=== PATIENT | female | born 2000 | race Caucasian/White ===

== ENCOUNTER 2024-11-30 09:40 | Outpatient (CLI) | payer BC, SELFPAY | END 2024-11-30 09:41 | disposition home or self-care (01) | LOC: US 09:41 | PROVIDERS: Visit Provider Physician Assistant | DX: Z34.91 Encounter for supervision of normal pregnancy, unspecified, first trimester (principal); O35.9XX0 Maternal care for (suspected) fetal abnormality and damage, unspecified, not applicable or unspecified; Z3A.08 8 weeks gestation of pregnancy | CPT/HCPCS: 76817 ==

== ENCOUNTER 2024-12-15 08:07 | Outpatient (CLI) | payer BC, SELFPAY ==
--- NOTE | 2024-12-15 08:15 | CRLHL7_ITS ---
For Patients: As a result of the Century Cures Act, medical imaging exams and procedure reports are released immediately into your electronic medical record. You may view this report before your referring provider. If you have questions, please contact your health care provider. INDICATION: Follow up on viability TECHNIQUE: Transvaginal scanning was performed to better evaluate the IUP and adnexa. COMPARISON: 11/30/2024 FINDINGS: There is a living IUP with gestational age of 7 weeks 3 days by today`s crown-rump length and EDC of 07/31/2025. The embryonic heart rate is measured at 157 beats per minute. The placenta is not yet formed. No subchorionic hemorrhage is evident. Neither ovary is visualized. No adnexal mass or free fluid is apparent. IMPRESSION: 1. Living IUP with gestational age of 7 weeks 3 days by today`s crown-rump length and EDC of 07/31/2025. 2. No complication evident. Dictated by Roger Reed MD @ 12/16/2024 4:41:20 AM (Electronically Signed)
== END 2024-12-15 08:08 | disposition home or self-care (01) ==
LOC: US 08:09
PROVIDERS: Visit Provider Midwife
DX: Z34.91 Encounter for supervision of normal pregnancy, unspecified, first trimester (principal); Z3A.01 Less than 8 weeks gestation of pregnancy
CPT/HCPCS: 76817; 83021; 86703; 86706; 86803; 86850; 86900; 86901; 87086; 87340; 87491; 87591

== ENCOUNTER 2024-12-15 08:57 | Outpatient (CLI) | payer BC, SELFPAY ==
[2024-12-15 15:23] LABS: Chlamydia DNA Amplified* NOT DETECTED (No Detected); GC DNA Amplified* NOT DETECTED (No Detected)
== END 2024-12-15 08:58 | disposition home or self-care (01) ==
PROVIDERS: Visit Provider Midwife
DX: Z34.91 Encounter for supervision of normal pregnancy, unspecified, first trimester (principal); Z3A.01 Less than 8 weeks gestation of pregnancy
CPT/HCPCS: 83020; 83021; 85660; 86592; 86703; 86704; 86706; 86762; 86787; 86803; 86850; 86900; 86901; 87086; 87340; 87491; 87591

== ENCOUNTER 2025-01-03 10:26 | Emergency (ER) | payer BC, SELFPAY ==
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
[2025-01-03 10:29] VITALS: BP 105/73; PULSE 95; RESP 16; TEMP 36.8; O2SAT 99; BMI 45.5
--- OUTSIDE RECORDS SUMMARY | 2025-01-03 10:29 | XMS_ITS | Encounter Summary ---
Author Organization [facility] Address [address] [place] [address] Care Team Providers Care Sql Tech Name Role Phone Jess Mcfadden MD Primary Care Provider [phone] Dior Curtis MD Primary Care Provider [phone] No Ref-Primary, Physician Primary [facility] Provider [facility] jeremy Shana Kam APRN GENERATOR REBUILDER Unavailable [phone] Dior Curtis MD Primary Care Provider [phone] Gillian Hansen RN Unavailable Unavailable Dior Curtis MD Unavailable [phone] No Ref-Primary, Physician Unavailable [phone] No Ref-Primary, Physician Primary Care Provider Reason for Visit * Reason Onset Date Comments MH/CD Inpatient 10/28/2014 pt is unable to contract for safety Encounter Details Date Type Department Care Team (Late st Contact Info) Description 10/28/2014 Telephone [facility] Intake [address] [place] [address] Generic, Behavioral Intake, MH/CD Inpatient (pt is unable to contract for safety) Social History Tobacco Use Types Packs/Day Years Used Date Smoking Tobacco: Never Assessed Alcohol Use Standard Drinks/Week Comments No 0 (1 standard drink = 0.6 oz pur e alcohol) Comments No Sex and Gender Information Value Date Recorded Sex Assigned at Not on file Legal Sex Female 4:40 AM SNORKELLING INSTRUCTOR Gender Identity Not on file Sexual Orientation Not on file documented as of this encounter Miscellaneous Notes * Telephone Encounter - Yandy Torres - 10/28/2014 12:07 AM CST S: Pt is on subacute unit and is unable to contract for safety. B: The pt has urges to cut and is unable to contract for safety. A: Pt is at risk for self harm. R: Admit to station 7ae under the care of Dr Valdez. (Yandy Melissa) KELLING INSTRUCTOR documented in this encounter Plan of Treatment Not on file documented as of this encounter Visit Diagnoses Not on filedocumented in this encounter Care Teams Sql Tech Relationship Specialty Start Date End Date Jess Mcfadden MD [facility] [address] [place] [address] PCP - General 03/25/12 12/28/14 Dior Curtis MD [address] [facility] [address] [place] [address] PCP - General Family Practice 12/29/14 08/27/17 No Ref-Primary, Physician PCP - General 08/28/17 08/30/17 Physicians, [facility] [address] [address] PCP - General 08/31/17 09/07/17 Shana Kam APRN GENERATOR REBUILDER [address] [phone] PCP - Mental Health/Behavioral Medicine Nurse Practitioner 09/01/17 Dior Curtis MD [address] , [address] [address] PCP - General Family Practice 09/08/17 12/19/20 No Ref-Primary, Physician PCP - General 12/24/21 Gillian Hansen, RN [address] [address] Lead Mold Clamper Primary Care - CC 12/03/17 05/28/18 Dior Curtis MD [address] , [address] [id number] Assigned PCP 12/01/14 09/06/22 No Ref-Primary, Physician 12/24/21 documented as of this encounter
--- OUTSIDE RECORDS SUMMARY | 2025-01-03 10:29 | XMS_ITS | Encounter Summary ---
Author Organization [facility] Address [address] [place] [address] Care Team Providers Care Diesel Engine Inspector Name Role Phone Jess Mcfadden MD Primary Care Provider Dior Curtis MD Primary Care Provider [phone] No Ref-Primary, Physician Primary Care Provider [facility] jeremy Shana Kam APRN AUTOMOTIVE MECHANIC Unavailable [phone] Dior Curtis MD Primary Care Provider [phone] Gillian Hansen RN Unavailable Unavailable Dior Curtis MD Unavailable No Ref-Primary, Physician Unavailable [phone] No Ref-Primary, Physician Primary Care Provider Reason for Visit * Reason Onset Date Comments Outpatient 11/01/2014 [facility] Encounter Details Date Type Department Care Team (Late st Contact Info) Description 11/01/2014 Telephone [facility] Behavioral Health Intake [address] [place] [address] Generic, Behavioral IntakeMD Outpatient (php) Social History Tobacco Use Types Packs/Day Years Used Date Smoking Tobacco: Never Assessed Alcohol Use Standard Drinks/Week Comments No 0 (1 standard drink = 0.6 oz pur e alcohol) Comments No Sex and Gender Information Value Date Recorded Sex Assigned at Not on file Legal Sex Female 4:40 AM RN CASE MANAGER Gender Identity Not on file Sexual Orientation Not on file documented as of this encounter Miscellaneous Notes * Telephone Encounter - León Stilese - 11/02/2014 9:38 AM CST Dup order written for php. CASE MANAGER * Telephone Encounter - Elsa Perales - 11/01/2014 11:01 AM CST recvd order from dr arshad/[facility] for referral to adol php; completed. CASE MANAGER documented in this encounter Plan of Treatment Not on file documented as of this encounter Visit Diagnoses Not on filedocumented in this encounter Care Teams Diesel Engine Inspector Relationship Specialty Start Date End Date Jess Mcfadden MD [facility] [address] [place] [address] PCP - General 03/25/12 12/28/14 Dior Curtis MD [address], [facility] [address] [place] [address] PCP - General Family Practice 12/29/14 08/27/17 No Ref-Primary, Physician PCP - General 08/28/17 08/30/17 Physicians, [facility] [address] [address] PCP - General 08/31/17 09/07/17 Shana Kam APRN AUTOMOTIVE MECHANIC [address] [facility] [address] [place] [phone] PCP - Mental Health/Behavioral Medicine Nurse Practitioner 09/01/17 Dior Curtis MD [address], [address] [address] PCP - General Family Practice 09/08/17 12/19/20 No Ref-Primary, Physician PCP - General 12/24/21 Gillian Hansen, RN [address] [address] Lead Inspector Balance Wheel Motion Primary Care - CC 12/03/17 05/28/18 Dior Curtis MD [address], [address] [address] Assigned PCP 12/01/14 09/06/22 No Ref-Primary, Physician 12/24/21 documented as of this encounter
--- OUTSIDE RECORDS SUMMARY | 2025-01-03 10:29 | XMS_ITS | Encounter Summary ---
Author Organization [facility] Address [address] [place] [address] Care Team Providers Care Utility Bag Assembler Name Role Phone Shana Kam APRN WEAPONS OFFICER Unavailable [phone] Dior Curtis MD Unavailable [phone] No Ref-Primary, Physician Unavailable [phone] No Ref-Primary, Physician Primary Care Provider Encounter Details Date Type Department Care Team (Late st Contact Info) Description 12/25/2021 Documentation Only INTERFACED REPORT Unknown, Provider Social History Tobacco Use Types Packs/Day Years [...] things needed for daily living? No 06/23/2019 Comments No Sex and Gender Information Value Date Recorded Sex Assigned at Not on file Legal Sex Female 4:40 AM NARCOTICS AGENT Gender Identity Not on file Sexual Orientation Not on file COVID-19 Exposure Response Date Recorded In the last month, have you been in contact with someone who was confirmed or suspected to have Coronavirus / COVID-19? No / Unsure 12/24/2021 2:48 PM CDT documented as of this encounter Plan of Treatment Not on file documented as of this encounter Visit Diagnoses Not on filedocumented in this encounter Additional Health Concerns Assessment Noted Time PHQ-9 Depression Total Score: 14 020 2:10 PM NARCOTICS AGENT documented as of this encounter Care Teams Utility Bag Assembler Relationship Specialty Start Date End Date Shana Kam APRN WEAPONS OFFICER PCP - Mental Health/Behavioral Medicine Nurse Practitioner 09/01/17 No Ref-Primary, Physician PCP - General 12/24/21 Dior Curtis MD [address] [address] Assigned PCP 12/01/14 09/06/22 No Ref-Primary, Physician 12/24/21 documented as of this encounter
--- OUTSIDE RECORDS SUMMARY | 2025-01-03 10:29 | XMS_ITS | Encounter Summary ---
Author Organization [facility] Address [address] [place] [address] Care Team Providers Care Pararescue Craftsman Name Role Phone No Ref-Primary, Physician Primary Care Provider Physicians, [facility] Primary Care [facility]remy Shana Kam APRN HEALTH CARE MARKETING MANAGER Unavailable [phone] Dior Curtis MD Primary Care Provider Gillian Hansen RN Unavailable Unavailable Dior Curtis MD Unavailable [phone] No Ref-Primary, Physician Unavailable [phone] No Ref-Primary, Physician Primary Care Provider Reason for Visit * Reason Onset Date Comments MH/CD Inpatient 08/28/2017 Encounter Details Date Type Department Care Team (Late st Contact Info) Description 08/28/2017 Telephone [facility] Behavioral Health Intake [address] [place] [phone] Generic, Behavioral Intake, MH/CD Inpatient Social History Tobacco Use Types Packs/Day Years Used Date Smoking Tobacco: Never Alcohol Use Standard Drinks/Week Comments No 0 (1 standard drink = 0.6 oz pur e alcohol) Comments No Sex and Gender Information Value Date Recorded Sex Assigned at Not on file Legal Sex Female 4:40 AM HEALTH INFORMATICS SPECIALIST Gender Identity Not on file Sexual Orientation Not on file documented as of this encounter Miscellaneous Notes * Telephone Encounter - Muna Matt Maldonado - 08/28/2017 7:47 PM CST S: pt is a 17 yr old fem in [facility] ED for SI w/ plan to OD or fall out a window report by B: Pt reports she wrote good-bye letters to her family. Pt reports she called 911. Pt reported she has had increasing SI since they increased her [place]. Pt has a psychiatrist and a therapist. No cd issues or medical concerns reported. A: vol / parents will sign in R; field operator reports pt will now contract for safety and family feels comfortable taking her home. TH INFORMATICS SPECIALIST documented in this encounter Plan of Treatment Not on file documented as of this encounter Visit Diagnoses Not on filedocumented in this encounter Additional Health Concerns Assessment Noted Time PHQ-9 Depression Total Score: 5 05/09/20 16 7:16 AM CDT documented as of this encounter Care Teams Pararescue Craftsman Relationship Specialty Start Date End Date No Ref-Primary, Physician PCP - General 08/28/17 08/30/17 Physicians, [place] [address] [address] [facility] [address] [place] [phone] PCP - General 08/31/17 09/07/17 Shana Kam APRN [facility] [address] [facility] [address] [place] [phone] PCP - Mental Health/Behavioral Medicine Nurse Practitioner 09/01/17 Dior Curtis MD [address], [facility] [address] [place], [place] [phone] PCP - General Family Practice 09/08/17 12/19/20 No Ref-Primary, Physician PCP - General 12/24/21 Gillian Hansen RN [address], [facility] [address] [place] [address] Lead Residential Care Facility Manager Primary Care - CC 12/03/1705/28 Dior Curtis MD [address] [facility] [address] [place] [address] Assigned PCP 12/01/14 09/06/22 No Ref-Primary, Physician 12/24/21 documented as of this encounter
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
--- OUTSIDE RECORDS SUMMARY | 2025-01-03 10:29 | XMS_ITS | Clinical Summary ---
Author Organization [facility] Address [address] [place] [address] Care Team Providers Care House Moving Supervisor Name Role Phone Unavailable Primary Care Provider Unavailabl e Allergies No known active allergies Medications dextroamphetamine- amphetamine (Adderall XR) 10 mg Extended-Release capsuleIndications :Attention deficit hyperactivity disorder (ADHD), predominantly hyperactive type Take 1 Capsule (10 mg) by mouth once daily. 30 Capsule 5 Active Active Problems Problem Noted Date Diagnosed Date Cervical cancer screening 08/03/2024 Overview (08/03/2024): 07/2024 NIL. Plan: Pap/HPV due 07/2027. Mixed hearing loss 12/16/2012 ETD (eustachian tube dysfunction) 12/16/2012 Attention deficit disorder with hyperactivity(31 4.01) 05/11/2008 Overview (05/11/2008): Followed by Zach Wood MD, developmental technical professional Other specified pervasive de velopmental disorders, current or active state 04/15/2006 Overview (04/15/2006): Asperger's dx 11/26 Unspecified hearing loss 04/15/2006 Overview (04/15/2006): hearing aids Immunizations Immunization Administration Dates Next Due COVID-19 vaccine (Moderna 100mcg/0.5mL) HERMANN CHAO 02/20/2021,01/23/2021 DTaP 05/21/2012, 6,10/16/2001,02/20,2000,2000,2000 TIjW-GawU-GAS (Pediarix) 10/16/2001,2000,1 11/20/1999 HPV 2(Cervarix) 04/19/2013,06/26/2012 HPV 9 (Gardasil 9) 10/03/2014,04/19/2013, 012 Hepatitis A (Peds) 04/19/2013,06/26/2012 Hepatitis A, Unspecified 04/19/2013,06/26/2012 Hepatitis B (Peds) 10/16/2001, 1,2000,07/16 Hepatitis B, Unspecified 10/16/2001,2000,1 11/20/1999 Human Papilloma Virus Vaccine 10/03/2014 Inactivated Polio Vaccine 04/15/2006,,05/15/2001,12/01,2000,2000,2000 Influenza Virus, Unspecified 10/03/2014, 05/21/2012,07/13/2010,06/06 Influenza, IIV3 (Age >=3 years) 09/03/2006,07/23 Influenza,LAIV3 Live Intrana cira (Flumist) 05/21/2012,07/13/2010,06/06/2009 Influenza,LAIV4 Live Intrana cira (Flumist) 10/03/2014,06/28/2013 MENINGOCOCCAL VACCINE 2 VIAL 2MO-55YO (MENVEO) 05/31/2019,05/21/2012 MMR 04/15/2006,09/06/2002,2000 Meningococcal Vaccine (Menomune) 05/21/2012 Pneumococcal conj 7-Valent (Prevnar 7) 0 10/16/2001,02/20/2001,2000,10/17 Tdap 07/26/2024 Tdap, Unspecified 05/21/2012 Varicella Vaccine 06/06/2009,09/06/2002 Family History Medical History Relation Name Comments No Known Problems Father Asthma Mother Amalia Other Mother Amalia cindy deafness Heart Disease Paternal Uncle heart attack Relation Name Status Comments Father Mother Amalia Paternal Uncle Social History Tobacco Use Types Packs/Day Years Used Date Smoking Tobacco: Never Passive Smoke Exposure: Past Smokeless Tobacco: Never Tobacco Cessation:Counseling Given: Not Answered Alcohol Use Standard Drinks/Week Comments Yes 0 (1 standard drink = 0.6 oz pur e alcohol) PHQ-2 Answer Date Recorded PHQ-2 TOTAL SCORE 0 07/26/2024 Comments No Sex and Gender Information Value Date Recorded Sex Assigned at Not on file Legal Sex Female 5:42 AM ACID ADJUSTER Gender Identity Not on file Sexual Orientation Not on file Obstetrics History Last Filed Vital Signs Vital Sign Reading Time Taken Comments Blood Pressure 108/82 07/26/2024 3:00 PM ACID ADJUSTER Pulse 70 07/26/2024 3:00 PM ACID ADJUSTER Temperature 36.6 C (97.9 F) 12/24/2012 10:00 AM CDT Respiratory Rate 16 07/26/2024 3:00 PM ACID ADJUSTER Oxygen Saturation 97% 07/26/2024 3:00 PM ACID ADJUSTER Inhaled Oxygen Concentration - - Weight 125.7 kg (277 lb 3.2 oz) 07/26/2024 3:00 PM ACID ADJUSTER Height 163 cm (5' 4.17) 07/26/2024 3:00 PM ACID ADJUSTER Body Mass Index 47.33 07/26/2024 3:00 PM ACID ADJUSTER Plan of Treatment Health Maintenance Due Date Last Done Comments COVID-19 vaccine series ( season) 2024 02/20/2021, 01/23/2021 Influenza Vaccine (Season Ended) 2025 10/03/2014, 10/03/2014, 06/28/2013, Additional history exists BMI (ht and wt on same day) for age 18+ 07/26/2025 07/26/2024 Chlamydia for age 16-24 07/26/2025 07/26/2024 Depression screening for age 12+ 07/29/2025 07/29/2024, 07/26/2024, 03/01/2021, Additional history exists Pap test for age 21-65 07/26/2027 07/26/2024 Tetanus booster 07/26/2034 07/26/2024, 05/21/2012 Pneumococcal series for age 6-49 Aged Out 10/16/2001, 02/20/2001, 2000, Additional history exists No longer eligible based on patient's age to complete this topic HPV series for age 9-26 Completed 10/03/19, 10/03/2014, 04/19/2013, Additional history exists HIV for age 15-65 Completed 07/26/2024 Hepatitis C screening for age 18-79 Completed 07/26/2024 Tdap Completed 07/26/2024, 05/21/2012 Medical Devices Implanted Type Area Cpc Coder Device Identifier Shelf Expiration Date Model / Serial / Lot Tube Vent 1.27mm Inner Collar Button [id number] - [id number] Implanted:Qty: 2 on 12/24/2012 by Rasheed Arguello MD at [facility] Bilateral : Ear [employer] 09/22/2022 [id number] / / [id number] Procedures Procedure Name Priority Date/Time Associated Diagnosis Comments CARGO HANDLER THIN PREP PAP - AGES 21-24 ([facility]) Routine 07/26/2024 4:15 PM ACID ADJUSTER Screening for cervical cancer GC CHLAMYDIA TRACH PROBE Routine 07/26/2024 3:44 PM ACID ADJUSTER Screening for chlamydial disease HIV 1/2 ANTIGEN/ANTIBODY FOURTH GENERATION W/RFL ([facility]) Routine 07/26/2024 3:38 PM ACID ADJUSTER Screening for HIV (human immunodeficiency virus) ANTI HCV Routine 07/26/2024 3:38 PM ACID ADJUSTER Need for hepatitis C screening test from Last 3 Months or Most Recently Relevant to Health Maintenance Results * CARGO HANDLER THIN PREP PAP - AGES 21-24 ([employer]) [[id number]] (07/26/2024 4:15 PM ACID ADJUSTER) CLINICAL INFORMATION [facility] Comment:None given LMP [facility] Comment:07/08/24 PREV. PAP [facility] Comment:FIRST, UNKNOWN PREV. BX [facility] Comment:NA SOURCE CARGO HANDLER [facility] Comment:Cervix STATEMENT OF ADEQUACY [facility] Comment: Satisfactory for evaluation. Endocervical/transformation zone component absent. INTERPRETATION/RESUL T [facility] Comment: Cytology Results: Negative for intraepithelial lesion or malignancy. COMMENT [facility] Comment: This Pap test has been evaluated with computer assisted technology. TIMBER FELLER Marco Antonio [facility] Comment: RRD, CT(ASCP) CT Screening location: [address] [address] THINPREP TIS PAP ALWAYS MESSAGE [facility] Comment: EXPLANATORY NOTE: The Pap is a screening test for cervical cancer. It is not a diagnostic test and is subject to false negative and false positive results. It is most reliable when a satisfactory sample, regularly obtained, is submitted with relevant clinical findings and history, and when the Pap result is evaluated along with historic and current clinical information. Other (Cervical) 07/26/2024 4:15 PM ACID ADJUSTER 07/27/2024 3:37 AM ACID ADJUSTER Narrative [facility] - 07/30/2024 9:28 PM ACID ADJUSTER SPLIT 07/26/2024 FROM [id number] Carmina MOONEY PATHOLOGY/CYTOLOGY Fin al Result [address] [id number], [address] [address] * GC CHLAMYDIA TRACH PROBE [[id number]] (07/26/2024 3:44 PM ACID ADJUSTER) CHLAMYDIA PROBE Negative 1:23 PM ACID ADJUSTER [facility] N GONORRHOEAE PROBE Negative 07/27/2024 1:23 PM ACID ADJUSTER [facility] Other VAGINAL SWAB / Unknown Non-Blood / Unknown 07/26/2024 3:44 PM ACID ADJUSTER 07/26/2024 3:44 PM ACID ADJUSTER us Carmina MOONEY MICROBIOLOGY Final Result [facility] [address] [place] [address], [place] * HIV 1/2 ANTIGEN/ANTIBODY FOURTH GENERATION W/RFL ([facility]) (07/26/2024 3:38 PM ACID ADJUSTER) HIV AG/AB, 4TH GEN NON-REACT JULI NON-REACT JULI [facility] Comment: HIV-1 antigen and HIV-1/HIV-2 antibodies were not detected. There is no laboratory evidence of HIV infection. PLEASE NOTE: This information has been disclosed to you from records whose confidentiality may be protected by state law. If your state requires such protection, then the state law prohibits you from making any further disclosure of the information without the specific written consent of the person to whom it pertains, or as otherwise permitted by law. A general authorization for the release of medical or other information is NOT sufficient for this purpose. For additional information please refer to http://advisorCONNECT.Correlsense/faq/GGG195 (This link is being provided for informational/ educational purposes only.) The performance of this assay has not been clinically validated in patients less than 2 years old. Blood BLOOD SPECIMEN / Unknown 07/26/2024 3:38 PM ACID ADJUSTER 07/26/2024 3:38 PM ACID ADJUSTER Narrative [facility] - 07/27/2024 5:30 AM ACID ADJUSTER FASTING:NO MULTIPLE TESTING PRIORITIES; ROUTINE TESTING TO FOLLOW. FASTING: NO Carmina MOONEY SEND OUTS Final Result [facility] [address] [place] [address], [facility] [address] [place] [address] * ANTI HCV (07/26/2024 3:38 PM ACID ADJUSTER) HEPATITIS C ANTIBODY NON-REACTI VE NON-REACT JULI [facility] Comment: HCV antibody was non-reactive. There is no laboratory evidence of HCV infection. In most cases, no further action is required. However, if recent HCV exposure is suspected, a test for HCV RNA (test code 88953) is suggested. For additional information please refer to http://education.link bird.Innovacell/faq/AJA17n7 (This link is being provided for informational/ educational purposes only.) Blood BLOOD SPECIMEN / Unknown 07/26/2024 3:38 PM ACID ADJUSTER 07/26/2024 3:38 PM ACID ADJUSTER Narrative [facility] - 07/27/2024 5:30 AM ACID ADJUSTER FASTING:NO MULTIPLE TESTING PRIORITIES; ROUTINE TESTING TO FOLLOW. FASTING: NO Carmina MOONEY SEND OUTS Final Result [facility] [address] [place] [address], [facility] [address] [place] [address] from Last 3 Months or Most Recently Relevant to Health Maintenance Insurance [facility] Advance Directives * Full Code (Latest Code Status on File) Date Activated Date Inactivated Comments 12/24/2012 9:56 AM 12/24/2012 1:38 PM
--- OUTSIDE RECORDS SUMMARY | 2025-01-03 10:29 | XMS_ITS | Encounter Summary ---
Author Organization [facility] Address [address] [place] [address] Care Team Providers Care [employer] Field Supervisor Name Role Phone Shana Kam APRN MANAGER BENEFIT Unavailable [phone] No Ref-Primary, Physician Unavailable [phone] No Ref-Primary, Physician Primary Care Provider Encounter Details Date Type Department Care Team (Latest Contact Info) Description 12/23/2024 Travel Social History Tobacco Use Types Packs/Day Years [...] on file Legal Sex Female 4:40 AM JAR FILLER Gender Identity Not on file Sexual Orientation Not on file documented as of this encounter Plan of Treatment Not on file documented as of this encounter Visit Diagnoses Not on filedocumented in this encounter Additional Health Concerns Assessment Noted Time PHQ-9 Depression Total Score: 14 020 2:10 PM JAR FILLER documented as of this encounter Care Teams Oil Well [employer] Field Supervisor Relationship Specialty Start Date End Date Shana Kam APRN MANAGER BENEFIT PCP - Mental Health/Behavioral Medicine Nurse Practitioner 09/01/17 No Ref-Primary, Physician PCP - General 12/24/21 No Ref-Primary, Physician 12/24/21 documented as of this encounter
--- OUTSIDE RECORDS SUMMARY | 2025-01-03 10:29 | XMS_ITS | Encounter Summary ---
Author Organization [place] Address [address] [place] [address] Care Team Providers Care Office Machine Embossograph Operator Name Role Phone Physicians, [facility] Primary Care Provi jeremy Shana Kam APRN PAIRER SUBSTANDARD Unavailable Dior Curtis MD Primary Care Provider [phone] Gillian Hansen RN Unavailable Unavailable Dior Curtis MD Unavailable No Ref-Primary, Physician Unavailable [phone] No Ref-Primary, Physician Primary Care Provider Encounter Details Date Type Department Care Team (Late st Contact Info) Description 09/01/2017 Telephone [facility] Behavioral Health Intake [address] [place] [phone] Generic, Behavioral Intake, Social History Tobacco Use Types Packs/Day Years Used Date Smoking Tobacco: Never Smokeless Tobacco: Never Alcohol Use Standard Drinks/Week Comments No 0 (1 standard drink = 0.6 oz pur e alcohol) Comments No Sex and Gender Information Value Date Recorded Sex Assigned at Not on file Legal Sex Female 4:40 AM PRESSROOM SUPERVISOR Gender Identity Not on file Sexual Orientation Not on file documented as of this encounter Miscellaneous Notes * Telephone Encounter - Azael Stiles - 09/09/2017 10:15 AM CST ----- Message from Gillian Perera sent at 09/09/2017 8:07 AM PRESSROOM SUPERVISOR ----- Regarding: appt needed We need a [facility] appt for 09/08 pls - pt was on 7A - [facility]#[id number]. Please add billing indicator 89. Thank you - k SROOM SUPERVISOR * Telephone Encounter - Thi Glalagher - 09/01/2017 12:32 AM PRESSROOM SUPERVISOR S: Pt is a 17 yo female at [facility] for SI. Report given by Mana. B: Pt has a hx of depression and cutting. Hot Metal Charger reports pt got upset with father and engaged in SIB via cutting. Pt endorsed SI with a plan to cut herself to . Hot Metal Charger reports pt's cuts are superficial. Pt told damage assessor that if she is discharged she will go home and kill herself. Pt has a hxof SI and hx of a suicide attempt 1 year ago. Pt is medically cleared. No violence or aggression reported. Hot Metal Charger reports pt's medications have recently been switched, pt switched from Seroquel to Latuda. Pt states she tried marijuana tonight, utox is negative. OP providers include MH comp field case manager, psychiatrist, and a school therapist. Affect is depressed, pt is calm and cooperative. A: Pt's father, Zach Starkey, authorizing tx. Can be reached at R: Vega accepted. María/ Sami SROOM SUPERVISOR documented in this encounter Plan of Treatment Not on file documented as of this encounter Visit Diagnoses Not on filedocumented in this encounter Additional Health Concerns Assessment Noted Time PHQ-9 Depression Total Score: 5 05/09/20 16 7:16 AM CDT documented as of this encounter Care Teams Office Machine Embossograph Operator Relationship Specialty Start Date End Date Physicians, [facility] [address] [place] [address] PCP - General 08/31/17 09/07/17 Shana Kam, MINE WEDGE SAWYER PAIRER SUBSTANDARD [address] [place] [phone] PCP - Mental Health/Behavioral Medicine Nurse Practitioner 09/01/17 Dior Curtis MD [address], [address] [address] PCP - General Family Practice 09/08/17 12/19/20 No Ref-Primary, Physician PCP - General 12/24/21 Gillian Hansen RN [address], [address] [address] Lead Application Spec Primary Care - CC 12/03/1705/28 Dior Curtis MD [address], [address] [address] Assigned PCP 12/01/14 09/06/22 No Ref-Primary, Physician 12/24/21 documented as of this encounter
--- OUTSIDE RECORDS SUMMARY | 2025-01-03 10:29 | XMS_ITS | Encounter Summary ---
Author Organization [place] Address [address] [place] [address] Care Team Providers Care Jute Bag Cutting Machine Operator Name Role Phone Shana Kam APRN PROTECTION ENGINEER Unavailable [phone] Dior Curtis MD Primary Care Provider [phone] Dior Curtis MD Unavailable [phone] No Ref-Primary, Physician Unavailable [phone] No Ref-Primary, Physician Primary Care Provider Encounter Details Date Type Department Care Team (Late st Contact Info) Description 05/25/2019 Documentation Only [facility] Ortho [facility] [address] [place] [phone] Rosaline Archer Social History Tobacco Use Types Packs/Day Years Used Date Smoking Tobacco: Never Smokeless Tobacco: Never Alcohol Use Standard Drinks/Week Comments No 0 (1 standard drink = 0.6 oz pur e alcohol) Comments No Sex and Gender Information Value Date Recorded Sex Assigned at Not on file Legal Sex Female 4:40 AM VALET ATTENDANT Gender Identity Not on file Sexual Orientation Not on file documented as of this encounter Plan of Treatment Not on file documented as of this encounter Visit Diagnoses Not on filedocumented in this encounter Additional Health Concerns Assessment Noted Time PHQ-9 Depression Total Score: 4 08/04/20 18 4:22 PM VALET ATTENDANT documented as of this encounter Care Teams Jute Bag Cutting Machine Operator Relationship Specialty Start Date End Date Shana KamULICES PROTECTION ENGINEER PCP - Mental Health/Behavioral Medicine Nurse Practitioner 09/01/17 Dior Curtis MD [address] , [address] [address] PCP - General Family Practice 09/08/17 12/19/20 No Ref-Primary, Physician PCP - General 12/24/21 Dior Curtis MD [address] , [address] [id number] Assigned PCP 12/01/14 09/06/22 No Ref-Primary, Physician 12/24/21 documented as of this encounter
--- OUTSIDE RECORDS SUMMARY | 2025-01-03 10:29 | XMS_ITS | Encounter Summary ---
Author Organization [place] Address [address] [place] [address] Care Team Providers Care Certified Surgical Tech/First Assistant Name Role Phone Shana Kam APRN PROGRAM REP Unavailable [phone] No Ref-Primary, Physician Unavailable [phone] No Ref-Primary, Physician Primary Care Provider Reason for Visit * Reason Comments Emesis During Encounter Details Date Type Department Care Team (Late st Contact Info) Description 12/23/2024 9:58 AM CDT - 12/23/2024 12:47 PM CDT Emergency [facility] Emergency Dept [address] [place] [address] Loli Whitfield MD [facility] [address] [place], [place] [phone] Hyperemesis arising during Discharge Disposition: Home or Self Care Social History Tobacco Use Types Packs/Day Years [...] on file Legal Sex Female 4:40 AM LEAD MANUFACTURING ENGINEER Gender Identity Not on file Sexual Orientation Not on file documented as of this encounter Last Filed Vital Signs Vital Sign Reading [...] Mass Index 46.55 12/23/2024 9:26 AM CDT documented in this encounter Discharge Instructions * Discharge Instructions* Loli Whitfield MD - 12/23/2024 10:13 AM CDT Discharge Instructions Hyperemesis Gravidarum You were seen today for hyperemesis gravidarum. It is very common to have some nausea (sick to yourstomach) and vomiting (throwing up) in early (sometimes called ???morning sickness,?? although it happens at all times of day.) In hyperemesis gravidarum, however, the vomiting is much more severe, so you may become dehydrated and lose weight. We have treated you today to manage your symptoms and rehydrate you. Often these symptoms persist during the first trimester of beforeimproving so you will likely need ongoing care. Generally, every Emergency Department visit should have a follow-up clinic visit with either a primary or a specialty clinic/provider. Please follow-up as instructed by your emergency provider today. Return to the Emergency Department if: You feel dizzy or light headed when standing up. You are vomiting and cannot keep fluids or medications down. You urinate (pee) much less than normal. You feel much more ill or develop new symptoms. What can I do to help myself? Be sure to drink plenty of cold clear fluids and suck on popsicles between meals. Pedialyte is a good rehydration liquid but many people don???t like the taste so sport drinks are a good alternative (Gatorade). Soda is often excessively sweat but Balwinder Doris is sometimes recommended for this condition. Eat as soon as you feel hungry, or even before you feel hungry. Try to keep something on your stomach. Avoid strong smells, or other things that make you feel nauseated. Snack often and eat small meals high in protein or carbohydrates such as crackers, bread, nuts, andlow-fat yogurt. Avoid spicy, greasy, or acid foods. Avoid lying down right after you eat. Take your vitamins at bedtime with a snack instead of taking them in the morning. Balwinder may make you feel better. Try eating a small piece of balwinder, or having balwinder-flavored hardcandies. Acupressure wrist bands are also helpful to some people. Treatment: Nausea medication. Your provider may send you home with a prescription medicine, like Compazine?? (prochlorperazine) or Reglan?? (metoclopramide). Zofran?? (ondansetron) is sometimes used as well. Your provider may recommend that you take non-prescription nausea medicines, like Dramamine?? (dimenhydrinate), Unisom?? (doxylamine), or Vitamin B6 (pyridoxine). Vitamins. Make sure your vitamins have 400 micrograms of Folic acid and have vitamin B6, since this may help your nausea and vomiting. If you were given a prescription for medicine here today, be sure to read all of the information (including the package insert) that comes with your prescription. This will include important information about the medicine, its side effects, and any warnings that you need to know about. The pharmacist who fills the prescription can provide more information and answer questions you may have about the medicine. If you have questions or concerns that the pharmacist cannot address, please call or return to the Emergency Department. Remember that you can always come back to the Emergency Department if you are not able to see your regular provider in the amount of time listed above, if you get any new symptoms, or if there is anything that worries you. documented in this encounter Medications at Time of Discharge prochlorperazine (COMPAZINE) [address] 1 suppository (25 mg) rectally every 12 hours as needed for nausea. 6 suppository 12/23/2024 documented as of this encounter ED Notes * Violet Turner RN - 12/23/2024 12:34 PM CDT Pt passed Po challenge * Loli Whitfield MD - 12/23/2024 10:10 AM CDT History Chief Complaint: Emesis During HPI Sury Starkey is a 24 year old female, 9w0d , who presents with emesis during . Patient reports emesis for the past 36 hours and difficulty keeping fluids down. She also reports somedizziness. She is making urine. No vaginal bleeding or abdominal pain. She has been taking unisom and Zofran for nausea, but has not been able to keep it down. She has had an ultrasound for this that showed IUP. No dysuria. Review of External notes Medications: Zofran Adderall Past Medical History: ADHD Bipolar disorder Depressive disorder Sleep disorder Class 3 severe obesity Dysmenorrhea Hearing loss Irregular menstrual cycle Marijuana smoker, continuous Vitamin D deficiency Hyperlipemia Past Surgical History: Tonsillectomy and adenoidectomy Tympanostomy Myringotomy Physical Exam Patient Vitals for the past 24 hrs: BP Temp Temp src Pulse Resp SpO2 Height Weight 12/23/24 0926 125/71 98 ??F (36.7 ??C) Temporal 67 18 99 % 1.626 m (5' 4) 123 kg (271 lb 2.7 oz) Physical Exam Gen: alert CV: RRR, Pulm: breath sounds equal, lungs clear. Mild tachycardia. Abd: Soft, nontender Back: no evidence of injury, no cva tenderness MSK: no deformity, moves all extremities Skin: no rash Neuro: alert, appropriate conversation and interaction Emergency Department Course Laboratory: Labs Ordered and Resulted from Time of ED Arrival to Time of ED Departure BASIC METABOLIC PANEL - Abnormal Result Value Sodium 134 (*) Potassium 4.0 Chloride 102 Carbon Dioxide (CO2) 24 Anion Gap 8 Urea Nitrogen 10.4 Creatinine 0.57 GFR Estimate >90 Calcium 8.9 Glucose 89 ED Course as of 12/23/24 1156 Nhung Dec 23, 2024 1009 I obtained history and examined the patient as noted above. Interventions: Medications dextrose 5% and 0.9% NaCl infusion ( Intravenous $New Bag 12/23/24 1058) sodium chloride 0.9% BOLUS 1,000 mL (has no administration in time range) ondansetron (ZOFRAN) injection 4 mg (4 mg Intravenous $Given 12/23/24 1058) Impression & Plan Independent Interpretation: See ED course Medical Decision Making: Sury Starkey is a 24 year old female who presents for evaluation of nausea and vomiting. She is currently . Nonetheless. I considered a broad differential diagnosis for this patient including viral gastroenteritis, food poisoning, bowel obstruction, intra-abdominal infection such as colitis, cholecystitis, UTI, pyelonephritis, appendicitis, etc. There are no signs of worrisome intra-abdominal pathologies detected during the visit today. The patient has a completely benign abdominal exam without rebound, guarding, or marked tenderness to palpation. I doubt ectopic based on patient report of US with IUP. Supportive outpatient management is therefore indicated. Abdominal pain precautions are given for home. It was discussed with the patient to return to the ED for worsenign sypmtoms or abdominal pain Feels much improved after interventions in ED. See below for medications for home. I believe all of her symptoms are at this point explained by the and hyperemesis gravidarum. Disposition: Discharge Diagnosis: ICD-10-CM 1. Hyperemesis arising during O21.0 Discharge Medications: New Prescriptions PROCHLORPERAZINE (COMPAZINE) [address] 1 suppository (25 mg) rectally every 12 hours as needed for nausea. Loli Whitfield December 23, 2024 Scribe Disclosure: FrankieShelley Denzel, am serving as a scribe at 10:17 AM on 12/23/2024 to document services personally performed by Loli Whitfield* based on my observations and the provider's statements to me. Loli Whitfield MD 12/23/24 1156 * Rosaline Hayes RN - 12/23/2024 9:26 AM CDT Pt arrives with c/o emesis in . Worse over the last 36 hours. Pt denies pain or vaginal bleeding. Triage Assessment (Adult) Row Name 12/23/24 0950 Triage Assessment Airway WDL WDL Respiratory WDL Respiratory WDL WDL Skin Circulation/Temperature WDL Skin Circulation/Temperature WDL WDL Cardiac WDL Cardiac WDL WDL Peripheral/Neurovascular WDL Peripheral Neurovascular WDL WDL Cognitive/Neuro/Behavioral WDL Cognitive/Neuro/Behavioral WDL WDL documented in this encounter Plan of Treatment Not on file documented as of this encounter Procedures Procedure Name Priority Date/Time Associated Diagnosis Comments EXTRA TUBE STAT 12/23/2024 10:54 AM CDT EXTRA PURPLE TOP TUBE STAT 12/23/2024 10:54 AM CDT EXTRA RED TOP TUBE STAT 12/23/2024 10 :54 AM CDT EXTRA BLUE TOP TUBE STAT 12/23/2024 1 0:54 AM CDT BASIC METABOLIC PANEL STAT 12/23/2024 10:54 AM CDT documented in this encounter Results * Extra Purple Top Tube (12/23/2024 10:54 AM CDT) Hold Specimen [facility] 12/23/2024 12:07 PM CDT [facility] Blood BLOOD SPECIMEN / Unknown Venipuncture / Unknown 12/23/2024 10:54 AM CDT 12/23/2024 11:00 AM CDT us Loli Whitfield MD LAB - BLOOD ORDE RABLES Final Result [facility] [address] Lab (1st floor, no room number) [place] [address], [facility] * Extra Red Top Tube (12/23/2024 10:54 AM CDT) Hold Specimen [facility] 12/23/2024 12:07 PM CDT [facility] Blood BLOOD SPECIMEN / Unknown Venipuncture / Unknown 12/23/2024 10:54 AM CDT 12/23/2024 11:00 AM CDT us Loli Whitfield MD LAB - BLOOD ORDE CHEO Final Result [facility] [address] Lab (1st floor, no room number) [place] [address], [facility] * Extra Blue Top Tube (12/23/2024 10:54 AM CDT) Hold Specimen [facility] 12/23/2024 12:07 PM CDT [facility] Blood BLOOD SPECIMEN / Unknown Venipuncture / Unknown 12/23/2024 10:54 AM CDT 12/23/2024 11:00 AM CDT us Loli Whitfield MD LAB - BLOOD ORDE RABHORTENCIA Final Result [facility] [address] Lab (1st floor, no room number) [place] [address] * (ABNORMAL) Basic metabolic panel (BMP) (12/23/2024 10:54 AM CDT) Sodium 134(L) 135 - 145 mmol/L 12/23/2024 [...] 12/23/2024 11:40 AM CDT LABORATORY Comment:eGFR calculated 2020 CKD-EPI equation. Calcium 8.9 8.8 - 10.4 mg/dL 12/23/2024 11:40 AM CDT LABORATORY Glucose 89 70 - 99 mg/dL 12/23/2024 11:40 AM CDT LABORATORY Blood BLOOD SPECIMEN / Unknown Venipuncture / Unknown 12/23/2024 10:54 AM CDT 12/23/2024 11:00 AM CDT us Loli Whitfield MD LAB - BLOOD HINA GRIDER Final Result LABORATORY [facility] Lab [address] Lab (1st floor, no room number) [place] [address] documented in this encounter Visit Diagnoses Diagnosis Hyperemesis arising during Mild hyperemesis gravidarum, unspecified as to episode of care documented in this encounter Administered Medications Inactive Administered Medications - up to 3 most recent administrations Medication Order MAR Action Action Date Dose Rate Site dextrose 5% and 0.9% NaCl infusion at 1,000 mL/hr, Intravenous, CONTINUOUS, Starting on Nhung 12/23/24 at 1015, Until Nhung 12/23/24 at 1114 $New Bag 12/23/2024 10:58 AM CDT 1000 mL/hr ondansetron (ZOFRAN) injection 4 mg 4 mg, Intravenous, ONCE, Administer over 2-5 Minutes, On Nhung 12/23/24 at 1015, For 1 dose $Given 12/23/2024 10:58 AM CDT 4 mg documented in this encounter Active and Recently Administered Medications Times are shown in CDT. Scheduled Medication Order 12/21/2024 12/22/2024 12/23/2024 ondansetron (ZOFRAN) injection 4 mg (COMPLETED) 4 mg, Intravenous, ONCE, Administer over 2-5 Minutes, On Nhung 12/23/24 at 1015, For 1 dose 1058 ($Given - Provi jeremy: Violet Turner RN) sodium chloride 0.9% BOLUS 1,000 mL Intravenous, 1,000 mL, ONCE, at 1,000 mL/hr, Administer over 1 Hours, On Nhung 12/23/24 at 1015, For 1 dose 1233 (Not Given - Pr ovider: Violet Turner RN - Reason: Other - Comment: no need for 2nd bag per MD-) Continuous Medication Order 12/21/2024 12/22/2024 12/23/2024 dextrose 5% and 0.9% NaCl infusion at 1,000 mL/hr, Intravenous, CONTINUOUS, Starting on Nhung 12/23/24 at 1015, Until Nhung 12/23/24 at 1114 1058 ($New Bag - Pro vider: Violet Turner, RN - Comment: ok over 1hr per md)1233 (Stopped - Provider: Violet Turner RN) documented in this encounter Additional Health Concerns Assessment Noted Time PHQ-9 Depression Total Score: 14 020 2:10 PM LEAD MANUFACTURING ENGINEER documented as of this encounter Care Teams Certified Surgical Tech/First Assistant Relationship Specialty Start Date End Date Shana Kam APRN PROGRAM REP PCP - Mental Health/Behavioral Medicine Nurse Practitioner 09/01/17 No Ref-Primary, Physician PCP - General 12/24/21 No Ref-Primary, Physician 12/24/21 documented as of this encounter
--- OUTSIDE RECORDS SUMMARY | 2025-01-03 10:29 | XMS_ITS | Encounter Summary ---
Author Organization [place] Address [address] [place] [address] Care Team Providers Care Department Clinician Name Role Phone Jess Mcfadden MD Primary Care Provider [phone] Doir Curtis MD Primary Care Provider [phone] No Ref-Primary, Physician [facility] jeremy Shana Kam APRN HARVEST SUPERVISOR Unavailable [phone] Dior Curtis MD Primary Care Provider [phone] Gillian Hansen RN Unavailable Unavailable Dior Curtis MD Unavailable No Ref-Primary, Physician Unavailable [phone] No Ref-Primary, Physician Primary Care Provider Reason for Visit * Reason Onset Date Comments MH/CD Inpatient 11/06/2014 MH Outpatient 11/06/2014 Encounter Details Date Type Department Care Team (Late st Contact Info) Description 11/06/2014 Telephone [facility] Behavioral Health Intake [address] [place] [address] Generic, Behavioral Intake, MH/CD Inpatient; Outpatient Social History Tobacco Use Types Packs/Day Years Used Date Smoking Tobacco: Never Assessed Alcohol Use Standard Drinks/Week Comments No 0 (1 standard drink = 0.6 oz pur e alcohol) Comments No Sex and Gender Information Value Date Recorded Sex Assigned at Not on file Legal Sex Female 4:40 AM QUALITY MANAGER Gender Identity Not on file Sexual Orientation Not on file documented as of this encounter Miscellaneous Notes * Telephone Encounter - Elsa Perales - 12/12/2014 10:38 AM CDT ----- Message from Radha Davidson sent at 12/12/2014 8:44 AM CDT ----- Regarding: need appts This Partial patient of needs appts made. Brittany Penn * Telephone Encounter - Job Hayes - 11/17/2014 2:05 PM CST ----- Message from Kira Aguilar RN sent at 11/17/2014 1:42 PM QUALITY MANAGER ----- Regarding: New start 11/21/[address] Ayoub New start 11/21/[address] Ayoub ITY MANAGER * Telephone Encounter - Mckayla Kinsey - 11/16/2014 1:19 PM CST ----- Message from Kira Aguilar RN sent at 11/16/2014 1:13 PM QUALITY MANAGER ----- Regarding: Evaluation scheduled for 10/17/2014 at 1100 Evaluation scheduled for 10/17/2014 @ 1100 ITY MANAGER * Telephone Encounter - Akash Davidson RN - 11/06/2014 9:29 PM CST S: Patient presents to [place] ED brought in by father. Bee provides clinical. B: Patient endorses suicidal thoughts with a plan to cut her wrists and take an overdose. Patient has superficially cut on her left inner forearm. Patient reports being medication compliant since herdischarge from this facility on Friday. Patient feels overwhelmed and rejected and doesn't feel safe. A stressor nor a precipitant can be identified. Patient has been crying excessively. A: Patient has been medically assessed and cleared for admission. Patient is cooperative and voluntary. Father is willing to sign patient in. R: Admit to station 7AE under Marcus Sahni accepts. ITY MANAGER documented in this encounter Plan of Treatment Not on file documented as of this encounter Visit Diagnoses Not on filedocumented in this encounter Care Teams Department Clinician Relationship Specialty Start Date End Date Jess Mcfadden MD [facility] [address] [place] [address] PCP - General 03/25/12 12/28/14 Dior Curtis MD [address] , [address] [address] PCP - General Family Practice 12/29/14 08/27/17 No Ref-Primary, Physician PCP - General 08/28/17 08/30/17 Physicians, [address] [place] [phone] PCP - General 08/31/17 09/07/17 Shana Kam APRN [facility] [address] [place] [phone] PCP - Mental Health/Behavioral Medicine Nurse Practitioner 09/01/17 Dior Curtis MD [address], [facility] [address] [place] [address] PCP - General Family Practice 09/08/17 12/19/20 No Ref-Primary, Physician PCP - General 12/24/21 Gillian Hansen, RN [address] [facility] [address] [place] [address] Lead Planner Primary Care - CC 12/03/17 05/28/18 Dior Curtis MD [address] , [facility] [address] [place] [address] Assigned PCP 12/01/14 09/06/22 No Ref-Primary, Physician 12/24/21 documented as of this encounter
--- OUTSIDE RECORDS SUMMARY | 2025-01-03 10:29 | XMS_ITS | Encounter Summary ---
Author Organization Center Address [address] [place] [address] Care Team Providers Care Resident Care Coordinator Name Role Phone Jess Mcfadden MD Primary Care Provider [phone] Dior Curtis MD Primary Care Provider [phone] No Ref-Primary, Physician [facility] jeremy Shana Kam APRN JOY LOADING MACHINE OPERATOR Unavailable [phone] Dior Curtis MD Primary Care Provider [phone] Gillian Hansen RN Unavailable Unavailable Dior Curtis MD Unavailable [phone] No Ref-Primary, Physician Unavailable [phone] No Ref-Primary, Physician Primary Care Provider Reason for Visit * Reason Onset Date Comments MH/CD Inpatient 10/24/2014 Encounter Details Date Type Department Care Team (Late st Contact Info) Description 10/24/2014 Telephone [facility] Behavioral Health Intake [address] [place] [address] Generic, Behavioral Intake, MH/CD Inpatient Social History Tobacco Use Types Packs/Day Years Used Date Smoking Tobacco: Never Assessed Alcohol Use Standard Drinks/Week Comments No 0 (1 standard drink = 0.6 oz pur e alcohol) Comments No Sex and Gender Information Value Date Recorded Sex Assigned at Not on file Legal Sex Female 4:40 AM INSPECTOR ELEVATORS Gender Identity Not on file Sexual Orientation Not on file documented as of this encounter Miscellaneous Notes * Telephone Encounter - Javier, Manasa - 10/24/2014 12:45 PM CST S: Received call from Nasir at [facility], # [phone] B: Pt still in their ED, admission to 4A should not have been canceled yesterday but was due to Dad's preference for pt to go to [facility]. Since [facility] doesn't have availability and remains in their ED, they are requesting admission to 4A. Pt today reported she needs to be in a safe environment toswitch my medications so that if I have an impulse to cut myself, I won't. A: Voluntary, Dad on board with daily family meetings. Pt no hx of running, agrees to stay on unit and contract for safety on unit. R: Tambyraja / 4a ECTOR ELEVATORS documented in this encounter Plan of Treatment Not on file documented as of this encounter Visit Diagnoses Not on filedocumented in this encounter Care Teams Resident Care Coordinator Relationship Specialty Start Date End Date Jess Mcfadden MD [facility] [address] [place] [address] PCP - General 03/25/12 12/28/14 Dior Curtis MD [address] [facility] [address] [place] [address] PCP - General Family Practice 12/29/14 08/27/17 No Ref-Primary, Physician PCP - General 08/28/17 08/30/17 Physicians, [address] [place] [phone] PCP - General 08/31/17 09/07/17 Shana Kam APRN JOY LOADING MACHINE OPERATOR [address] [place] [phone] PCP - Mental Health/Behavioral Medicine Nurse Practitioner 09/01/17 Dior Curtis MD [address] , [address] [address] PCP - General Family Practice 09/08/17 12/19/20 No Ref-Primary, Physician PCP - General 12/24/21 Gillian Hansen, DAVID [address] [facility] [address] [place] [phone] Lead Plastic Bubble Packer Primary Care - CC 12/03/17 05/28/18 Dior Curtis MD [address] , [address] [address] Assigned PCP 12/01/14 09/06/22 No Ref-Primary, Physician 12/24/21 documented as of this encounter
--- OUTSIDE RECORDS SUMMARY | 2025-01-03 10:29 | XMS_ITS | Encounter Summary ---
Author Organization [facility] Address [address] [place] [address] Care Team Providers Care Labor Custodian Name Role Phone Jess Mcfadden MD Primary Care Provider [phone] Dior Curtis MD Primary Care Provider [phone] No Ref-Primary, Physician Primary [facility] jeremy Shana Kam APRN CLINICAL PRACTITIONER Unavailable [phone] Dior Curtis MD Primary Care Provider [phone] Gillian Hansen RN Unavailable Unavailable Dior Curtis MD Unavailable [phone] No Ref-Primary, Physician Unavailable [phone] No Ref-Primary, Physician Primary Care Provider Reason for Visit * Reason Onset Date Comments MH/CD Inpatient 10/23/2014 Encounter Details Date Type Department Care Team (Late st Contact Info) Description 10/23/2014 Telephone [facility] Behavioral Health Intake [address] [place] [address] Generic, Behavioral Intake, MH/CD Inpatient Social History Tobacco Use Types Packs/Day Years Used Date Smoking Tobacco: Never Assessed Alcohol Use Standard Drinks/Week Comments No 0 (1 standard drink = 0.6 oz pur e alcohol) Comments No Sex and Gender Information Value Date Recorded Sex Assigned at Not on file Legal Sex Female 4:40 AM ATTENDING PSYCHIATRIST Gender Identity Not on file Sexual Orientation Not on file documented as of this encounter Miscellaneous Notes * Telephone Encounter - Akash Davidson, RN - 10/23/2014 4:10 PM CST Per Bee at [place] patient's father [facility] [place] NDING PSYCHIATRIST * Telephone Encounter - Zach Rodriguez - 10/23/2014 12:57 PM CST Pt at [facility]. B: pt brought to er by dad. Pt si w/thghts to cut self, odose and drown Self in bathtub. Pt mom a few years ago and had been living w/dad who works A lot. Pt helpless, hopeless, worthless feelings. Pt has sib cutting behaviors since Mom . Pt has no services currently. Has had prozac inc recently from pcp. A: dx depression. Calm, cooperative seeking help. R: tambyraja/4a NDING PSYCHIATRIST NDING PSYCHIATRIST documented in this encounter Plan of Treatment Not on file documented as of this encounter Visit Diagnoses Not on filedocumented in this encounter Care Teams Labor Custodian Relationship Specialty Start Date End Date Jess Mcfadden MD [facility] [address] [place] [address] PCP - General 03/25/12 12/28/14 Dior Curtis MD [address], [facility] [address] [place] [address] PCP - General Family Practice 12/29/14 08/27/17 No Ref-Primary, Physician PCP - General 08/28/17 08/30/17 Physicians, [facility] [address] [facility] [address] [place] [phone] PCP - General 08/31/17 09/07/17 Shana Kam APRN CLINICAL PRACTITIONER [address] [facility] [address] [place] [phone] PCP - Mental Health/Behavioral Medicine Nurse Practitioner 09/01/17 Dior Curtis MD [address], [facility] [address] [place] [phone] PCP - General Family Practice 09/08/17 12/19/20 No Ref-Primary, Physician PCP - General 12/24/21 Gillian Hansen, RN [address] [facility] [address] [place] [phone] Lead Tribal Judge Primary Care - CC 12/03/17 05/28/18 Dior Curtis MD [address], [address] [address] Assigned PCP 12/01/14 09/06/22 No Ref-Primary, Physician 12/24/21 documented as of this encounter
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
--- NOTE | 2025-01-03 10:37 | ED_ITS ---
HPI - General Adult General Date Seen: 01/03/25 Chief complaint: Nausea/Vomiting Stated complaint: can't keep fluids down-11 weeks Time Seen by Provider: 01/03/25 10:37 History of Present Illness HPI narrative: 24-year-old female , currently about 11 weeks . Her is been complicated by a lot of nausea and vomiting, marijuana use during , elevated BMI. she also has anxiety and was recently started on Lexapro. She used to vape nicotine but quit when she found out she was . Per medical record she was seen in the OB clinic on 12/30. According to those notes she had been experiencing a lot of nausea, vomiting, breast tenderness, until a few days prior to that visit. She had a small amount of vaginal bleeding after intercourse the night for her ER visit. She had been having some intermittent pelvic cramping since the start . Heart tones were in the 170s by Doppler in clinic. Blood type O positive. She was also seen in clinic on 12/08 for nausea and vomiting related to . Per that note she was approximately 9 weeks . She had reported vomiting 4-5 times per night And 5 to 10 times each day. Symptoms ongoing for a little bit more than week. she was already on Unisom and vitamins. Also prescribed Zofran at that visit. Patient reports that she has actually had a lot of nausea and vomiting throughout this and has been to the ER at [facility] at least twice or 3 times to get IV fluids. She has been taking the Zofran oral dissolving tablets. She has also been given a prescription for an antinausea suppository but has been refusing to take it so far because it freakes [me] out. since yesterday her nausea is been worse. She has had about 10 or 12 episodes of vomiting. Mostly clear, sometimes bile tinged. No bloody emesis. Although she had previously been in constipation she actually did have 1 watery diarrheal stool this morning. She is having some mild upper abdominal pain which is typical when she vomits. No lower pain. No fever. Urination has been normal. No vaginal bleeding. She came here to the ER [place] because typically the weights at the ER [facility] are longer. Related Data Home Medications ?Medication ?Instructions ?Recorded ?Confirmed vits no.126-ferrous fum 1 tab PO QDAY 12/08/24 01/03/25 28 mg iron-folic acid 800 mcg tablet (Classic ) Previous Rx's ?Medication ?Instructions ?Recorded escitalopram oxalate 10 mg tablet 10 mg PO QDAY #30 tabs 12/15/24 ondansetron 4 mg disintegrating 4 mg PO Q6H PRN nausea and 12/23/24 tablet vomiting #30 tabs Allergies Allergy/AdvReac Type Severity Reaction Status Date / Time No Known Drug Allergies Allergy Verified 01/03/25 10:34 [facility] Medical History (Updated 01/03/25 @ 11:56 by Barrington Gallardo MD) History of nicotine vaping ?Z87.891 - Personal history of nicotine dependence (ICD-10) Obesity, morbid, BMI 40.0-49.9 ?E66.01 - Morbid (severe) obesity due to excess calories (ICD-10) Marijuana use during ?O99.320 - Drug use complicating , unspecified trimester (ICD-10) ?F12.90 - Cannabis use, unspecified, uncomplicated (ICD-10) Anxiety ?F41.9 - Anxiety disorder, unspecified (ICD-10) Surgical History (Updated 12/15/24 @ 10:24 by Aziza Yap CNM) History of tympanoplasty ?Z98.890 - Other specified postprocedural states (ICD-10) Family History Aunt Ovarian cancer 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 Alert. Conversant. Non toxic. HENT: Head: Atraumatic. Nose: Nose normal. Mouth/Throat: Oral mucosa is clear . Mucous membranes are dry but not desiccated or cracked.. no trismus. Pharynx normal. Tonsils symmetric. No tonsillar enlargement, erythema, or exudate. Eyes: Conjunctivae normal. EOM normal. Pupils equal, round, and reactive to light. No scleral icterus. Neck: Normal range of motion. Neck supple. No tracheal deviation present. Cardiovascular: Normal rate, regular rhythm. No gallop. No friction rub. No murmur heard. Symmetric radial artery pulses Pulmonary/Chest: Effort normal. No stridor. No respiratory distress. No wheezes. No rales. No rhonchi . No tenderness. Abdominal: Soft. Bowel sounds normal. No distension. No mass , although I suspect she has a little bit of suprapubic fullness consistent with an early 11 week gravid uterus. No tenderness. No CVA tenderness. No rebound. No guarding. Musculoskeletal: RUE: Normal range of motion. No tenderness. No deformity LUE: Normal range of motion. No tenderness. No deformity RLE: Normal range of motion. No edema. No tenderness. No deformity LLE: Normal range of motion. No edema. No tenderness. No deformity Neurological: Alert and oriented to person, place, and time. Normal strength. CN II-VII intact. No sensory deficit. GCS eye subscore is 4. GCS verbal subscore is 5. GCS motor subscore is 6. Normal coordination Skin: Skin is warm and dry. No rash noted. No pallor. Normal capillary refill. Psychiatric: Normal mood. Normal affect. Const: Vital Signs, click to edit/add: Vital Signs - 24 hr 01/03/25 10:29 Temperature 98.3 F Pulse Rate [Pulse Oximeter] 95 Respiratory Rate 16 Blood Pressure [Ri t Upper Arm] 105/73 Pulse Oximetry 99 Oxygen Delivery Me thod Room Air Course Course ED Course: Recheck-notes that she is starting to feel better after getting IV fluids. Nausea somewhat improved after Reglan as well. She is willing to try some p.o. fluids. About half of her bolus has been into so forth. Her jmvidh-gu-fas's present at her side and they interact supportively together Vital Signs Vital signs: Initial Vital Signs Temperature 98.3 F 01/03/25 10:29 Temperature Source Temporal Artery Scan 01/03/25 10:29 Pulse Rate 95 01/03/25 10:29 Respiratory Rate 16 01/03/25 10:29 Blood Pressure 105/73 01/03/25 10:29 Blood Pressure Mean 83 01/03/25 10:29 Blood Pressure Position Sitting 01/03/25 10:29 Pulse Oximetry 99 01/03/25 10:29 Oxygen Delivery Method Room Air 01/03/25 10:29 Vital Signs Temperature 98.3 F 01/03/25 10:29 Pulse Rate 95 01/03/25 10:29 Respiratory Rate 16 01/03/25 10:29 Blood Pressure 105/73 01/03/25 10:29 Pulse Oximetry 99 01/03/25 10:29 Oxygen Delivery Method Room Air 01/03/25 10:29 Temperature 98.3 F 01/03/25 10:29 Pulse Rate 95 01/03/25 10:29 Respiratory Rate 16 01/03/25 10:29 Blood Pressure 105/73 01/03/25 10:29 Pulse Oximetry 99 01/03/25 10:29 Oxygen Delivery Method Room Air 01/03/25 10:29 Medications Administered Medications: Discontinued Medications Generic Name Dose Route Start Last Admin Trade Name Freq PRN Reason Stop Dose Admin Sodium Chloride 1,000 mls @ 1,000 mls/hr 01/03/25 11:00 01/03/25 12:23 0.9 % Sodium Chloride 1000 Ml IV 01/03/25 11:59 Infused .Q1H ROSE Infusion Medical Decision Making MDM Narrative Medical decision making narrative: This is a female, currently 11 weeks , who presents for evaluation of nausea and vomiting. I considered a broad differential diagnosis for this patient including viral gastroenteritis, bacterial enteritis, food poisoning, bowel obstruction, intra-abdominal infection such as colitis, cholecystitis, UTI, pyelonephritis, appendicitis, among others. There are no signs of worrisome intra-abdominal pathologies detected during the visit today. The patient has a benign abdominal exam without rebound, guarding, or marked tenderness to palpation. I doubt ectopic based on patient report of several previous pelvic ultrasounds that confirm Dash IUP and no adnexal abnormalities.. She is improved after medications and fluids. She is tolerating adequate PO. Supportive outpatient management is therefore indicated. Reviewed return precautions with the patient. It was discussed with the patient to return to the ED for uncontrolled vomiting, weakness, problems with her , blood in stool, increasing pain, or fevers more than 102. Feels much improved after interventions in ED. Medications for home already include Zofran 0 DT. She also has a prescription for a anti emetics positive Sanjay that she has been reluctant to take due to squamous pagan is. Encouraged her to take her prescribed meds. Suspect symptoms are related to nausea and vomiting with / hyperemesis gravidarum. She is feeling much better after IV fluids. She is tolerating oral intake. She feels comfortable discharging to home. Discharge Plan Discharge Clinical Impression: Nausea and vomiting during , Acute dehydration Patient Disposition: Home, Self-Care Condition: Stable Instructions: Nausea and Vomiting in (ED) Additional Instructions: As we discussed, please follow-up with your regular doctor as scheduled in. Return to the ER right away if you have any concerns; especially uncontrolled vomiting, dehydration, or other new symptoms such as fever, abdominal pain, vaginal bleeding. Prescriptions: No Action escitalopram oxalate 10 mg tablet 10 mg PO QDAY Qty: 30 2RF Classic 28 mg iron- 800 mcg tablet 1 tab PO QDAY ondansetron 4 mg tablet,disintegrating 4 mg PO Q6H PRN (Reason: nausea and vomiting) Qty: 30 2RF Follow Up/Referrals: Provider,Not a Local [Primary Care Provider] - Stand Alone Forms: [employer] Info Instructions
--- OUTSIDE RECORDS SUMMARY | 2025-01-03 11:10 | XMS_ITS | Clinical Summary ---
[facility] Address [address], [place] [address] Care Team Providers Care Physician Underwriter Name Role Phone Jess Mcfadden MD Primary Care Provider [phone] Source Comments You are receiving this document as you are listed as the primary care provider,follow-up provider, or the patient has been referred to you for consultation.This is in compliance with the Medicare and[facility] EHR Incentive Program,which states Providers who transition their patient to another setting of careor provider of care or refers their patient to another provider of care shouldprovide summary care record for each transition of care or referral. 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
--- OUTSIDE RECORDS SUMMARY | 2025-01-03 11:10 | XMS_ITS | Encounter Summary ---
Author Organization [place] Address [address] [place] [address] Care Team Providers Care Salt Maker Name Role Phone No Ref-Primary, Physician Primary Care Provider Physicians, [facility] jeremy Shana Kam APRN K 9 POLICE OFFICER Unavailable [phone] Dior Curtis MD Primary Care Provider [phone] Gillian Hansen RN Unavailable Unavailable Dior Curtis MD Unavailable [phone] No Ref-Primary, Physician Unavailable [phone] No Ref-Primary, Physician Primary Care Provider Reason for Visit * Reason Onset Date Comments MH/CD Inpatient 08/28/2017 Encounter Details Date Type Department Care Team (Late st Contact Info) Description 08/28/2017 Telephone [facility] Behavioral Health Intake [address] [place] [address] [phone] Generic, Behavioral Intake, MH/CD Inpatient Social History Tobacco Use Types Packs/Day Years Used Date Smoking Tobacco: Never Alcohol Use Standard Drinks/Week Comments No 0 (1 standard drink = 0.6 oz pur e alcohol) Comments No Sex and Gender Information Value Date Recorded Sex Assigned at Not on file 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 Pt reports she called 911. Pt reported she has had increasing SI since they increased her Latuda. Pt has a psychiatrist and a therapist. No cd issues or medical concerns reported. A: vol / parents will sign in R; terminal block assembler reports pt will now contract for safety and family feels comfortable taking her home. ER OR ENGINE OPERATOR documented in this encounter Plan of Treatment Not on file documented as of this encounter Visit Diagnoses Not on filedocumented in this encounter Additional Health Concerns Assessment Noted Time PHQ-9 Depression Total Score: 5 05/09/20 16 7:16 AM CDT documented as of this encounter Care Teams Salt Maker Relationship Specialty Start Date End Date No Ref-Primary, Physician PCP - General 08/28/17 08/30/17 Physicians, [place] [address] [facility] [address] [place] [phone] PCP - General 08/31/17 09/07/17 Shana Kam APRN [facility] [address] [facility] [address] [place] [phone] PCP - Mental Health/Behavioral Medicine Nurse Practitioner 09/01/17 Dior Curtis MD [address], [facility] [address] [place], [place] [address] PCP - General Family Practice 09/08/17 12/19/20 No Ref-Primary, Physician PCP - General 12/24/21 Gillian Hansen RN [address], [facility] [address] [place] [address] Lead Supervisor Special Services Primary Care - CC 12/03/1705/28 Dior Curtis MD [address] [facility] [address] [place] [address] Assigned PCP 12/01/14 09/06/22 No Ref-Primary, Physician 12/24/21 documented as of this encounter
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
--- OUTSIDE RECORDS SUMMARY | 2025-01-03 11:10 | XMS_ITS | Encounter Summary ---
Author Organization [place] Address [address] [place] [address] Care Team Providers Care Bookmaker Map Name Role Phone Shana Kam APRN SOFTWARE DEVELOPMENT MANAGER Unavailable [phone] Dior Curtis MD Primary Care Provider [phone] Dior Curtis MD Unavailable [phone] No Ref-Primary, Physician Unavailable No Ref-Primary, Physician Primary Care Provider Encounter Details Date Type Department Care Team (Late st Contact Info) Description 05/25/2019 Documentation Only [facility] [address] [place] [phone] Rosaline Archer Social History Tobacco Use Types Packs/Day Years Used Date Smoking Tobacco: Never Smokeless Tobacco: Never Alcohol Use Standard Drinks/Week Comments No 0 (1 standard drink = 0.6 oz pur e alcohol) Comments No Sex and Gender Information Value Date Recorded Sex Assigned at Not on file Legal Sex Female 4:40 AM MONONITROTOLUENE OPERATOR Gender Identity Not on file Sexual Orientation Not on file documented as of this encounter Plan of Treatment Not on file documented as of this encounter Visit Diagnoses Not on filedocumented in this encounter Additional Health Concerns Assessment Noted Time PHQ-9 Depression Total Score: 4 08/04/20 18 4:22 PM MONONITROTOLUENE OPERATOR documented as of this encounter Care Teams Bookmaker Map Relationship Specialty Start Date End Date Shana KamULICES SOFTWARE DEVELOPMENT MANAGER PCP - Mental Health/Behavioral Medicine Nurse Practitioner 09/01/17 Dior Curtis MD [address] , [address] [address] PCP - General Family Practice 09/08/17 12/19/20 No Ref-Primary, Physician PCP - General 12/24/21 Dior Curtis MD [address] , [address] [address] Assigned PCP 12/01/14 09/06/22 No Ref-Primary, Physician 12/24/21 documented as of this encounter
--- OUTSIDE RECORDS SUMMARY | 2025-01-03 11:10 | XMS_ITS | Encounter Summary ---
Author Organization [place] Address [address] [place] [address] Care Team Providers Care Mountain Bike Guide Name Role Phone Jess Mcfadden MD Primary Care Provider [phone] Dior Curtis MD Primary Care Provider [phone] No Ref-Primary, Physician Primary [facility] jeremy Shana Kam APRN IP TECHNOLOGY TRANSACTIONS ATTORNEY Unavailable [phone] Dior Curtis MD Primary Care Provider [phone] Gillian Hansen RN Unavailable Unavailable Dior Curtis MD Unavailable [phone] No Ref-Primary, Physician Unavailable [phone] No Ref-Primary, Physician Primary Care Provider Reason for Visit * Reason Onset Date Comments Outpatient 11/01/2014 [facility] Encounter Details Date Type Department Care Team (Late st Contact Info) Description 11/01/2014 Telephone [facility] Behavioral Health Intake [address] [place] [address] Generic, Behavioral IntakeMD Outpatient (php) Social History Tobacco Use Types Packs/Day Years Used Date Smoking Tobacco: Never Assessed Alcohol Use Standard Drinks/Week Comments No 0 (1 standard drink = 0.6 oz pur e alcohol) Comments No Sex and Gender Information Value Date Recorded Sex Assigned at Not on file Legal Sex Female 4:40 AM SPRAY PAINTER Gender Identity Not on file Sexual Orientation Not on file documented as of this encounter Miscellaneous Notes * Telephone Encounter - León Stilese - 11/02/2014 9:38 AM CST Dup order written for php. Y PAINTER * Telephone Encounter - Elsa Perales - 11/01/2014 11:01 AM CST recvd order from dr arshad/[facility] for referral to adol php; completed. Y PAINTER documented in this encounter Plan of Treatment Not on file documented as of this encounter Visit Diagnoses Not on filedocumented in this encounter Care Teams Mountain Bike Guide Relationship Specialty Start Date End Date Jess Mcfadden MD [facility] [address] [place] [address] PCP - General 03/25/12 12/28/14 Dior Curtis MD [address], [facility] [address] [place] [address] PCP - General Family Practice 12/29/14 08/27/17 No Ref-Primary, Physician PCP - General 08/28/17 08/30/17 Physicians, [facility] [address] [phone] PCP - General 08/31/17 09/07/17 Shana Kam APRN IP TECHNOLOGY TRANSACTIONS ATTORNEY [address] [facility] [address] [place] [phone] PCP - Mental Health/Behavioral Medicine Nurse Practitioner 09/01/17 Dior Curtis MD [address], [address] [address] PCP - General Family Practice 09/08/17 12/19/20 No Ref-Primary, Physician PCP - General 12/24/21 Gillian Hansen, RN [address] [phone] Lead Fixture Designer Primary Care - CC 12/03/17 05/28/18 Dior Curtis MD [address], [address] [address] Assigned PCP 12/01/14 09/06/22 No Ref-Primary, Physician 12/24/21 documented as of this encounter
--- OUTSIDE RECORDS SUMMARY | 2025-01-03 11:10 | XMS_ITS | Encounter Summary ---
Author Organization [place] Address [address] [place] [address] Care Team Providers Care Conveyancer Name Role Phone Jess Mcfadden MD Primary Care Provider [phone] Dior Curtis MD Primary Care Provider [phone] No Ref-Primary, Physician Primary Care [facility] jeremy Shana Kam APRN GARBAGE PERSON Unavailable [phone] Dior Curtis MD Primary Care Provider [phone] Gillian Hansen RN Unavailable Unavailable Dior Curtis MD Unavailable [phone] Ref-Primary, Physician Unavailable [phone] No Ref-Primary, Physician Primary Care Provider Reason for Visit * Reason Onset Date Comments MH/CD Inpatient 10/28/2014 pt is unable to contract for safety Encounter Details Date Type Department Care Team (Late st Contact Info) Description 10/28/2014 Telephone [facility] Behavioral Health Intake [address] [place] [address] Generic, Behavioral Intake, MH/CD Inpatient (pt is unable to contract for safety) Social History Tobacco Use Types Packs/Day Years Used Date Smoking Tobacco: Never Assessed Alcohol Use Standard Drinks/Week Comments No 0 (1 standard drink = 0.6 oz pur e alcohol) Comments No Sex and Gender Information Value Date Recorded Sex Assigned at Not on file Legal Sex Female 4:40 AM SOIL SCIENCE PROFESSOR Gender Identity Not on file Sexual Orientation [...] the care of Dr Valdez. (Yandy Melissa) SCIENCE PROFESSOR documented in this encounter Plan of Treatment Not on file documented as of this encounter Visit Diagnoses Not on filedocumented in this encounter Care Teams Conveyancer Relationship Specialty Start Date End Date Jess Mcfadden MD [facility] [address] [place] [address] PCP - General 03/25/12 12/28/14 Dior Curtis MD [address] [facility] [address] [place] [address] PCP - General Family Practice 12/29/14 08/27/17 No Ref-Primary, Physician PCP - General 08/28/17 08/30/17 Physicians, [facility] [address] [phone] PCP - General 08/31/17 09/07/17 Shana Kam APRN GARBAGE PERSON [address] [phone] PCP - Mental Health/Behavioral Medicine Nurse Practitioner 09/01/17 Dior Curtis MD [address] , [address] [address] PCP - General Family Practice 09/08/17 12/19/20 No Ref-Primary, Physician PCP - General 12/24/21 Gillian Hansen, RN [address] [phone] Lead Bioassayist Primary Care - CC 12/03/17 05/28/18 Dior Curtis MD [address] , [address] [address] Assigned PCP 12/01/14 09/06/22 No Ref-Primary, Physician 12/24/21 documented as of this encounter
--- OUTSIDE RECORDS SUMMARY | 2025-01-03 11:10 | XMS_ITS | Encounter Summary ---
Author Organization [place] Address [address] [place] [address] Care Team Providers Care Economics Teacher Name Role Phone Jess Mcfadden MD Primary Care Provider [phone] Dior Curtis MD Primary Care Provider [phone] No Ref-Primary, Physician Primary [facility] jeremy Shana Kam APRN BRUSH STAINER Unavailable [phone] Dior Curtis MD Primary Care Provider [phone] Gillian Hansen RN Unavailable Unavailable Dior Curtis MD Unavailable [phone] No Ref-Primary, Physician Unavailable [phone] No Ref-Primary, Physician Primary Care Provider Reason for Visit * Reason Onset Date Comments MH/CD Inpatient 10/24/2014 Encounter Details Date Type Department Care Team (Late st Contact Info) Description 10/24/2014 Telephone [facility] Behavioral Health Intake [address] [place] [address] Generic, Behavioral Intake, MH/CD Inpatient Social History Tobacco Use Types Packs/Day Years Used Date Smoking Tobacco: Never Assessed Alcohol Use Standard Drinks/Week Comments No 0 (1 standard drink = 0.6 oz pur e alcohol) Comments No Sex and Gender Information Value Date Recorded Sex Assigned at Not on file Legal Sex Female 4:40 AM LOAN AND CREDIT MANAGER Gender Identity Not on file Sexual Orientation Not on file documented as of this encounter Miscellaneous Notes * Telephone Encounter - Javier, Manasa - 10/24/2014 12:45 PM CST S: Received call from Nasir at [facility], # [phone] B: Pt still in their ED, admission to 4A should not have been canceled yesterday but was due to Dad's preference for pt to go to [facility]. Since [facility] doesn't have availability and remains [...] safety on unit. R: Tambyraja / 4a AND CREDIT MANAGER documented in this encounter Plan of Treatment Not on file documented as of this encounter Visit Diagnoses Not on filedocumented in this encounter Care Teams Economics Teacher Relationship Specialty Start Date End Date Jess Mcfadden MD [facility] [address] [place] [address] PCP - General 03/25/12 12/28/14 Dior Curtis MD [address] [facility] [address] [place] [address] PCP - General Family Practice 12/29/14 08/27/17 No Ref-Primary, Physician PCP - General 08/28/17 08/30/17 Physicians, [address] [place] [phone] PCP - General 08/31/17 09/07/17 Shana Kam APRN BRUSH STAINER [address] [employer] [address] [place] [phone] PCP - Mental Health/Behavioral Medicine Nurse Practitioner 09/01/17 Dior Curtis MD [address] , [address] [address] PCP - General Family Practice 09/08/17 12/19/20 No Ref-Primary, Physician PCP - General 12/24/21 Gillian Hansen, DAVID [address] [facility] [address] [place] [phone] Lead Sorting And Folding Supervisor Primary Care - CC 12/03/17 05/28/18 Dior Curtis MD [address] , [address] [address] Assigned PCP 12/01/14 09/06/22 No Ref-Primary, Physician 12/24/21 documented as of this encounter
--- OUTSIDE RECORDS SUMMARY | 2025-01-03 11:10 | XMS_ITS | Encounter Summary ---
Author Organization [place] Address [address] [place] [address] Care Team Providers Care Grazing Examiner Name Role Phone Shana Kam APRN PROCESS OWNER Unavailable [phone] No Ref-Primary, Physician Unavailable [phone] No Ref-Primary, Physician Primary Care Provider Encounter [...] on file Legal Sex Female 4:40 AM SOLID PROPELLANT PROCESSOR Gender Identity Not on file Sexual Orientation Not on file documented as of this encounter Plan of Treatment Not on file documented as of this encounter Visit Diagnoses Not on filedocumented in this encounter Additional Health Concerns Assessment Noted Time PHQ-9 Depression Total Score: 14 020 2:10 PM SOLID PROPELLANT PROCESSOR documented as of this encounter Care Teams Grazing Examiner Relationship Specialty Start Date End Date Shana Kam APRN PROCESS OWNER PCP - Mental Health/Behavioral Medicine Nurse Practitioner 09/01/17 No Ref-Primary, Physician PCP - General 12/24/21 No Ref-Primary, Physician 12/24/21 documented as of this encounter
--- OUTSIDE RECORDS SUMMARY | 2025-01-03 11:10 | XMS_ITS | Encounter Summary ---
Author Organization [facility] Address [address] [place] [address] Care Team Providers Care Can Washer Name Role Phone Shana Kam APRN LINE COOK Unavailable [phone] Dior Curtis MD Unavailable [phone] No Ref-Primary, Physician Unavailable [phone] No Ref-Primary, Physician Primary Care Provider Encounter [...] on file Legal Sex Female 4:40 AM TAFE LECTURER Gender Identity Not on file Sexual Orientation [...] Depression Total Score: 14 020 2:10 PM TAFE LECTURER documented as of this encounter Care Teams Can Washer Relationship Specialty Start Date End Date Shana Kam APRN LINE COOK PCP - Mental Health/Behavioral Medicine Nurse Practitioner 09/01/17 No Ref-Primary, Physician PCP - General 12/24/21 Dior Curtis MD [address] [address] Assigned PCP 12/01/14 09/06/22 No Ref-Primary, Physician 12/24/21 documented as of this encounter
--- OUTSIDE RECORDS SUMMARY | 2025-01-03 11:10 | XMS_ITS | Encounter Summary ---
Author Organization [facility] Address [address] [place] [address] Care Team Providers Care Liquified Natural Gas Technician Name Role Phone Physicians, [facility] Primary Care Provi jeremy Shana Kam APRN FLOOR COVERING PRINTER Unavailable Dior Curtis MD Primary Care Provider [phone] Gillian Hansen RN Unavailable Unavailable Dior Curtis MD Unavailable No Ref-Primary, Physician Unavailable [phone] No Ref-Primary, Physician Primary Care Provider Encounter Details Date Type Department Care Team (Late st Contact Info) Description 09/01/[address] [facility] Behavioral Health Intake [address] [place] [address] Generic, Behavioral Intake, Social History Tobacco Use Types Packs/Day Years Used Date Smoking Tobacco: Never Smokeless Tobacco: Never Alcohol Use Standard Drinks/Week Comments No 0 (1 standard drink = 0.6 oz pur e alcohol) Comments No Sex and Gender Information Value Date Recorded Sex Assigned at Not on file Legal Sex Female 4:40 AM CUTTER IN Gender Identity Not on file Sexual Orientation Not on file documented as of this encounter Miscellaneous Notes * Telephone Encounter - Azael Stiles - 09/09/2017 10:15 AM CST ----- Message from Gillian Perera sent at 09/09/2017 8:07 AM CUTTER IN ----- Regarding: appt needed We need a [facility] appt for 09/08 pls - pt was on 7A - [facility]#[id number]. Please add billing indicator 89. Thank you - k ER IN * Telephone Encounter - Thi Gallagher - 09/01/2017 12:32 AM CUTTER IN S: Pt is a 17 yo female at [facility] for SI. Report given by Mana. B: Pt has a hx of depression and cutting. Purification Director reports pt got upset with father and engaged in SIB via cutting. Pt endorsed SI with a plan to cut herself to . Purification Director reports pt's cuts are superficial. Pt told promotional marketing agent that if she is discharged she will go home and kill herself. Pt has a hxof SI and hx of a suicide attempt 1 year ago. Pt is medically cleared. No violence or aggression reported. Purification Director reports pt's medications have recently been switched, pt switched from Seroquel to Latuda. Pt states she tried marijuana tonight, utox is negative. OP providers include MH child support case officer, psychiatrist, and a school therapist. Affect is depressed, pt is calm and cooperative. A: Pt's father, Zach Starkey, authorizing tx. Can be reached at R: [facility] accepted. María/ [facility] documented in this encounter Plan of Treatment Not on file documented as of this encounter Visit Diagnoses Not on filedocumented in this encounter Additional Health Concerns Assessment Noted Time PHQ-9 Depression Total Score: 5 05/09/20 16 7:16 AM CDT documented as of this encounter Care Teams Liquified Natural Gas Technician Relationship Specialty Start Date End Date Physicians, [facility] [address] [place] [address] PCP - General 08/31/17 09/07/17 Shana Kam, INTERIOR SYSTEMS CARPENTER FLOOR COVERING PRINTER [address] [place] [address] PCP - Mental Health/Behavioral Medicine Nurse Practitioner 09/01/17 Dior Curtis MD [address], [address] [address] PCP - General Family Practice 09/08/17 12/19/20 No Ref-Primary, Physician PCP - General 12/24/21 Gillian Hansen RN [address], [address] [address] Lead Software Quality Assurance Specialist Primary Care - CC 12/03/1705/28 Dior Curtis MD [address], [address] [address] Assigned PCP 12/01/14 09/06/22 No Ref-Primary, Physician 12/24/21 documented as of this encounter
--- OUTSIDE RECORDS SUMMARY | 2025-01-03 11:10 | XMS_ITS | Encounter Summary ---
Author Organization [facility] Address [address] [place] [address] Care Team Providers Care Patient Access Registrar Name Role Phone Jess Mcfadden MD Primary Care Provider [phone] Dior Curtis MD Primary Care Provider [phone] No Ref-Primary, Physician Primary Care Provider [facility] jeremy Shana Kam APRN GRILL ATTENDANT Unavailable [phone] Dior Curtis MD Primary Care Provider [phone] Gillian Hansen RN Unavailable Unavailable Dior Curtis MD Unavailable [phone] Ref-Primary, Physician Unavailable [phone] No Ref-Primary, Physician Primary Care Provider Reason for Visit * Reason Onset Date Comments MH/CD Inpatient 11/06/2014 MH Outpatient 11/06/2014 Encounter Details Date Type Department Care Team (Late st Contact Info) Description 11/06/2014 Telephone [facility] Behavioral Health Intake [address] [place] [address] Generic, Behavioral Intake, MH/CD Inpatient; Outpatient Social History Tobacco Use Types Packs/Day Years Used Date Smoking Tobacco: Never Assessed Alcohol Use Standard Drinks/Week Comments No 0 (1 standard drink = 0.6 oz pur e alcohol) Comments No Sex and Gender Information Value Date Recorded Sex Assigned at Not on file Legal Sex Female 4:40 AM DAY CARE HOME PROVIDER Gender Identity Not on file Sexual Orientation [...] Aguilar RN sent at 11/17/2014 1:42 PM DAY CARE HOME PROVIDER ----- Regarding: New start 11/21/[address] Ayoub New start 11/21/[address] Ayoub CARE HOME PROVIDER * Telephone Encounter - Mckayla Kinsey - 11/16/2014 1:19 PM CST ----- Message from Kira Aguilar RN sent at 11/16/2014 1:13 PM DAY CARE HOME PROVIDER ----- Regarding: Evaluation scheduled for 10/17/2014 at 1100 Evaluation scheduled for 10/17/2014 @ 1100 CARE HOME PROVIDER * Telephone Encounter - Akash Davidson RN - 11/06/2014 9:29 PM CST S: Patient presents to [facility] ED brought in by father. Bee provides [...] to station 7AE under Marcus Sahni accepts. CARE HOME PROVIDER documented in this encounter Plan of Treatment Not on file documented as of this encounter Visit Diagnoses Not on filedocumented in this encounter Care Teams Patient Access Registrar Relationship Specialty Start Date End Date Jess Mcfadden MD [facility] [address] [place] [address] PCP - General 03/25/12 12/28/14 Dior Curtis MD [address] , [address] [address] PCP - General Family Practice 12/29/14 08/27/17 No Ref-Primary, Physician PCP - General 08/28/17 08/30/17 Physicians, [address] [place] [phone] PCP - General 08/31/17 09/07/17 Shana Kam APRN [facility] [address] [place] [phone] PCP - Mental Health/Behavioral Medicine Nurse Practitioner 09/01/17 Dior Curtis MD [address], [facility] [address] [place] [address] PCP - General Family Practice 09/08/17 12/19/20 No Ref-Primary, Physician PCP - General 12/24/21 Gillian Hansen, RN [address] [facility] [address] [place] [address] Lead Air Control/Anti Air Warfare Officer Primary Care - CC 12/03/17 05/28/18 Dior Curtis MD [address] , [facility] [address] [place] [address] Assigned PCP 12/01/14 09/06/22 No Ref-Primary, Physician 12/24/21 documented as of this encounter
--- OUTSIDE RECORDS SUMMARY | 2025-01-03 11:10 | XMS_ITS | Encounter Summary ---
Author Organization [facility] Address [address] [place] [address] Care Team Providers Care Press Set Up Name Role Phone Shana Kam APRN CELLAR WORKER Unavailable [phone] No Ref-Primary, Physician Unavailable [phone] No Ref-Primary, Physician Primary Care Provider Reason for Visit * Reason Comments Emesis During Encounter Details Date Type Department Care Team (Late st Contact Info) Description 12/23/2024 9:58 AM CDT - 12/23/2024 12:47 PM CDT Emergency [facility] Emergency Dept [address] [place] [address] Loli Whitfield MD [facility] [address] [place], [place] [address] Hyperemesis arising during Discharge Disposition: Home or [...] on file Legal Sex Female 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 Triage Assessment (Adult) Row Name 12/23/24 0909 Triage Assessment Airway WDL WDL Respiratory WDL [...] Tube (12/23/2024 10:54 AM CDT) Hold Specimen [facility] 12/23/2024 12:07 PM CDT [facility] Blood BLOOD SPECIMEN / Unknown Venipuncture / Unknown 12/23/2024 10:54 AM CDT 12/23/2024 11:00 AM CDT us Loli Whitfield MD LAB - BLOOD ORDE RABLES Final Result [facility] Lab [address] Lab (1st floor, no room number) [place] [address], [facility] * Extra Red Top Tube (12/23/2024 10:54 AM CDT) Hold Specimen [facility] 12/23/2024 12:07 PM CDT [facility] Blood BLOOD SPECIMEN / Unknown Venipuncture / Unknown 12/23/2024 10:54 AM CDT 12/23/2024 11:00 AM CDT us Loli Whitfield MD LAB - BLOOD ORDE CHEO Final Result [facility] Lab [address] Lab (1st floor, no room number) [place] [address], [facility] * Extra Blue Top Tube (12/23/2024 10:54 AM CDT) Hold Specimen [facility] 12/23/2024 12:07 PM CDT [facility] Blood BLOOD SPECIMEN / Unknown Venipuncture / Unknown 12/23/2024 10:54 AM CDT 12/23/2024 11:00 AM CDT us Loli Whitfield MD LAB - BLOOD ORDE RABHORTENCIA Final Result [facility] Lab [address] Lab (1st floor, no room number) [place] [address] * (ABNORMAL) Basic metabolic panel (BMP) (12/23/2024 [...] - BLOOD HINA GRIDER Final Result LABORATORY [facility] Acute Care Lab [address] Lab (1st floor, no room number) [place] [address] documented in this encounter Visit Diagnoses Diagnosis [...] Depression Total Score: 14 020 2:10 PM SKILLED NURSING PROFESSIONAL documented as of this encounter Care Teams Press Set Up Relationship Specialty Start Date End Date Shana Kam APRN CELLAR WORKER PCP - Mental Health/Behavioral Medicine Nurse Practitioner 09/01/17 No Ref-Primary, Physician PCP - General 12/24/21 No Ref-Primary, Physician 12/24/21 documented as of this encounter
--- OUTSIDE RECORDS SUMMARY | 2025-01-03 11:10 | XMS_ITS | Clinical Summary ---
Author Organization [facility] Address [address] [place] [address] Care Team Providers Care Simulation Educator Name Role Phone Shana Kam APRN FELT HAT FLANGING OPERATOR Unavailable [phone] No Ref-Primary, Physician Unavailable [phone] No Ref-Primary, Physician Primary Care Provider Allergies [...] CAP (community acquired pneumonia) 05/19/2019 10/27/2019 Health Group Home 12/29/2014 03/08/2024 Depression 10/24/2014 05/08/2016 Encounters Date Type Department Care Team Description 12/23/2024 9:58 AM CDT - 12/23/2024 12:47 PM CDT Emergency [facility] Emergency Dept [address] [place] [address] Loli Whitfield MD Hyperemesis arising during Discharge [...] on file Legal Sex Female 4:40 AM RIB BENDER Gender Identity Not on file Sexual Orientation [...] Tube (12/23/2024 10:54 AM CDT) Hold Specimen [facility] 12/23/2024 12:07 PM CDT [facility] LAB[facility] Blood BLOOD SPECIMEN / Unknown Venipuncture / Unknown 12/23/2024 10:54 AM CDT 12/23/2024 11:00 AM CDT us Loli Whitfield MD LAB - BLOOD ORDE RABHORTENCIA Final Result [facility] Lab [address] Lab (1st floor, no room number) [address] * Extra Red Top Tube (12/23/2024 10:54 AM CDT) Hold Specimen [facility] 12/23/2024 12:07 PM CDT [facility] LABORATORY Blood BLOOD SPECIMEN / Unknown Venipuncture / Unknown 12/23/2024 10:54 AM CDT 12/23/2024 11:00 AM CDT us Loli Whitfield MD LAB - BLOOD ORDE CHEO Final Result [facility] Lab [address] Lab (1st floor, no room number) [address] [place] [address] * Extra Blue Top Tube (12/23/2024 10:54 AM CDT) Hold Specimen [facility] 12/23/2024 12:07 PM CDT [facility] LAB[facility]AT[facility] Blood BLOOD SPECIMEN / Unknown Venipuncture / Unknown 12/23/2024 10:54 AM CDT 12/23/2024 11:00 AM CDT us Loli Whitfield MD LAB - BLOOD ORDE RABHORTENCIA Final Result [facility] [address] Lab (1st floor, no room number) [place] [address] * (ABNORMAL) Basic metabolic panel (BMP) (12/23/2024 10:54 AM CDT) [facility] Sodium 134(L) 135 - 145 mmol/L 12/23/2024 [...] LAB - BLOOD HINA GRIDER Final Result [facility] [address] [facility] Lab (1st floor, no room number) [place] [address], [facility] * Chlamydia Trach/N. Gonorrhoeae RNA TMA(Pap, Swab,Urine)([facility]) (06/27/2016 1:49 PM CDT) Chlamydia Trachomatis RNA TMA NOT DETECTED NOT DETECTED [facility] Neisseria Gonorrhoeae RNA TMA NOT DETECTED NOT DETECTED [facility] See Note SEE COMMENT [facility] Comment: This test was performed using the APTIMA COMBO2 Assay ([employer] The analytical performance characteristics of this assay, when used to test SurePath specimens have been determined by [employer]. 06/27/2016 1:49 PM CDT 06/28/2016 5:46 AM CDT Narrative Resulting Agency Comment Performing Organization Information: [place] [facility] [address] [place] [address] Taiwo Duran M.D. us Dior Curtis MD LAB - NON-BEAKER NON-BLOOD Fin al Result Performing Organization Address City/[facility] Co de Phone Number [facility] [address] [place] [address] from Last 3 Months or Most Recently Relevant to Health Maintenance Advance Directives For more information, please contact: [phone] * Full Code (Latest Code Status on [...] 3:10 AM 11/16/2014 2:59 PM Care Teams Simulation Educator Relationship Specialty Start Date End Date Shana Kam APRN FELT HAT FLANGING OPERATOR PCP - Mental Health/Behavioral Medicine Nurse Practitioner 09/01/17 No Ref-Primary, Physician PCP - General 12/24/21 No Ref-Primary, Physician 12/24/21
[2025-01-03] MEDS: 0.9 % SODIUM CHLORIDE 1000 ml 1,000 ML IV (11:15)
[2025-01-03 12:32] VITALS: BP 118/66; PULSE 82; RESP 18; O2SAT 97
== END 2025-01-03 12:39 | disposition home or self-care (01) ==
PROVIDERS: Emergency Provider Emergency Medicine
DX: R11.2 Nausea with vomiting, unspecified (principal); E86.0 Dehydration; Z3A.11 11 weeks gestation of pregnancy
CPT/HCPCS: 96361; 96374; 96375; 99282; 99284; J7030

== ENCOUNTER 2025-02-07 07:41 | Emergency (ER) | payer BC, SELFPAY ==
--- OUTSIDE RECORDS SUMMARY | 2025-02-07 07:43 | XMS_ITS | Clinical Summary ---
Author Organization [facility] Address [address] [place] [address] Care Team Providers Care Sausage Wrapper Name Role Phone Shana Kam APRN KING MAKER Unavailable [phone] No Ref-Primary, Physician Unavailable [phone] No Ref-Primary, Physician Primary Care Provider Allergies [...] CAP (community acquired pneumonia) 05/19/2019 10/27/2019 Health [facility] 12/29/2014 03/08/2024 Depression 10/24/2014 05/08/2016 Encounters Date Type Department Care Team Description 12/23/2024 9:58 AM CDT - 12/23/2024 12:47 PM CDT Emergency [facility] Emergency Dept [address] [place] [address] Loli Whitfield MD Hyperemesis arising during Discharge Disposition: Home or Self Care 12/23/2024 Travel from Last 3 Months Immunizations Immunization Administration Dates Next Due DTAP (<7y) 04/15/2006, [...] on file 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 Gender Identity Not on file Sexual Orientation [...] COVID-19 Vaccine ( season) 2024 02/20/2021, 01/23/2021 TDAP () IMMUNIZATION 04/28/2025 05/21/2012 INFLUENZA VACCINE (Season Ended) 2025 05/31/2019 (Declined), 08/04/2018 (Declined), 10/03/2014, Additional history exists RSV VACCINE (1 - Risk 1-dose series) [...] Tube (12/23/2024 10:54 AM CDT) Hold Specimen [facility] 12/23/2024 12:07 PM CDT [facility] LABORATORY Blood BLOOD SPECIMEN / Unknown Venipuncture / Unknown 12/23/2024 10:54 AM CDT 12/23/2024 11:00 AM CDT us Loli Whitfield MD LAB - BLOOD ORDE CHEO Final Result [facility] Lab [address] Lab (1st floor, no room number) [address] [place] [address] * Extra Red Top Tube (12/23/2024 10:54 AM CDT) Hold Specimen [facility] 12/23/2024 12:07 PM CDT RH LABORATORY Blood BLOOD SPECIMEN / Unknown Venipuncture / Unknown 12/23/2024 10:54 AM CDT 12/23/2024 11:00 AM CDT us Loli Whitfield MD LAB - BLOOD ORDE CHEO Final Result [facility] Lab [address] Lab (1st floor, no room number) [place] [phone] [place] [address] * Extra Blue Top Tube (12/23/2024 10:54 AM CDT) Hold Specimen [facility] 12/23/2024 12:07 PM CDT RH LABORATORY Blood BLOOD SPECIMEN / Unknown Venipuncture / Unknown 12/23/2024 10:54 AM CDT 12/23/2024 11:00 AM CDT us Loli Whitfield MD LAB - BLOOD ORDE RABHORTENCIA Final Result [facility] Care Lab [address] Lab (1st floor, no room number) [place] [address] * (ABNORMAL) Basic metabolic panel (BMP) (12/23/2024 10:54 AM CDT) [facility] Sodium 134(L) 135 - 145 mmol/L [...] LAB - BLOOD HINA GRIDER Final Result [facility] Acute Care Lab [address] [facility] Lab (1st floor, no room number) [place] [address], [facility] * Chlamydia Trach/N. Gonorrhoeae RNA TMA(Pap, Swab,Urine)([facility]) (06/27/2016 1:49 PM CDT) Chlamydia Trachomatis RNA TMA NOT DETECTED NOT DETECTED [facility] Neisseria Gonorrhoeae RNA TMA NOT DETECTED NOT DETECTED [facility] See Note SEE COMMENT [facility] Comment: This test was performed using the APTIMA COMBO2 Assay ([employer] The analytical performance characteristics of this assay, when used to test SurePath specimens have been determined by [employer]. 06/27/2016 1:49 PM CDT 06/28/2016 5:46 AM CDT Narrative Resulting Agency Comment Performing Organization Information: [place] [facility] [address] [place] [address] Taiwo Duran M.D. us Dior Curtis MD LAB - NON-BEAKER NON-BLOOD Fin al Result Performing Organization Address City/State/[facility] Co de Phone Number [facility] [address] [place] [address] from Last 3 Months or Most Recently Relevant to Health Maintenance Advance Directives For more information, please contact: [phone] * Full Code (Latest Code Status on [...] 3:10 AM 11/16/2014 2:59 PM Care Teams Sausage Wrapper Relationship Specialty Start Date End Date Shana Kam APRN KING MAKER PCP - Mental Health/Behavioral Medicine Nurse Practitioner 09/01/17 No Ref-Primary, Physician PCP - General 12/24/21 No Ref-Primary, Physician 12/24/21
--- OUTSIDE RECORDS SUMMARY | 2025-02-07 07:43 | XMS_ITS | Encounter Summary ---
Author Organization [facility] Address [address] [place] [address] Care Team Providers Care Car Record Clerk Name Role Phone Jess Mcfadden MD Primary Care Provider [phone] Dior Curtis MD Primary Care Provider [phone] No Ref-Primary, Physician Primary [facility] jeremy Shana Kam APRN DIRECTOR SPEECH Unavailable [phone] Dior Curtis MD Primary Care Provider [phone] Gillian Hansen RN Unavailable Unavailable Dior Curtis MD Unavailable [phone] Ref-Primary, Physician Unavailable [phone] No Ref-Primary, Physician Primary Care Provider Reason for Visit * Reason Onset Date Comments MH/CD Inpatient 10/28/2014 pt is unable to contract for safety Encounter Details Date Type Department Care Team (Late st Contact Info) Description 10/28/2014 Telephone [facility] Behavioral Health Intake [address] [place] [address] Generic, Behavioral Intake, MH/CD Inpatient [...] School Help Needed Not on file 07/08 Comments No Sex and Gender Information Value Date Recorded Sex Assigned at Not on file Legal Sex Female 4:40 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 No / Unsure 12/24/2021 2:48 PM CDT documented as of this encounter Miscellaneous Notes [...] under the care of Dr Valdez. (Yandy Torres) GE IRONWORKER documented in this encounter Plan of Treatment Not on file documented as of this encounter Visit Diagnoses Not on filedocumented in this encounter Care Teams Car Record Clerk Relationship Specialty Start Date End Date Jess Mcfadden MD [facility] [address] [facility] [place] [address] PCP - General 03/25/12 12/28/14 Dior Curtis MD [address], [address] [place] [address] PCP - General Family Practice 12/29/14 08/27/17 No Ref-Primary, Physician PCP - General 08/28/17 08/30/17 Physicians, [facility] [address] [facility] [address] [place] [phone] PCP - General 08/31/17 09/07/17 Shana Kam APRN DIRECTOR SPEECH [address] [facility] [address] [place] [phone] PCP - Mental Health/Behavioral Medicine Nurse Practitioner 09/01/17 Dior Curtis MD [address] , [address] [address] PCP - General Family Practice 09/08/17 12/19/20 No Ref-Primary, Physician PCP - General 12/24/21 Gillian Hansen, RN [address] [address] Lead Chemistry Lab Instructor Primary Care - CC 12/03/17 05/28/18 Dior Curtis MD [address], [address] [address] Assigned PCP 12/01/14 09/06/22 No Ref-Primary, Physician 12/24/21 documented as of this encounter
--- OUTSIDE RECORDS SUMMARY | 2025-02-07 07:43 | XMS_ITS | Clinical Summary ---
Author Organization [facility] Address [address] [place] [address] Care Team Providers Care Business Objects Architect Name Role Phone Unavailable Primary Care Provider [...] (05/11/2008): Followed by Zach Wood MD, developmental recreation therapist Other specified pervasive de velopmental disorders, current or active state 04/15/2006 Overview (04/15/2006): Asperger's dx 11/26 Unspecified hearing loss 04/15/2006 Overview (04/15/2006): hearing aids Immunizations Immunization Administration Dates Next Due COVID-19 vaccine (Moderna 100mcg/0.5mL) HERMANN CHAO 02/20/2021,01/23/2021 DTaP 05/21/2012, 6,10/16/2001,02/20,2000,2000,2000 [id number] (Pediarix) 10/16/2001,2000,1 11/20/1999 HPV 2(Cervarix) 04/19/2013,06/26/2012 HPV [...] on file Legal Sex Female 5:42 AM COMPRESSOR BATTERY PELLETS Gender Identity Not on file Sexual Orientation Not on file Obstetrics History Last Filed Vital Signs Vital Sign Reading Time Taken Comments Blood Pressure 108/82 07/26/2024 3:00 PM COMPRESSOR BATTERY PELLETS Pulse 70 07/26/2024 3:00 PM COMPRESSOR BATTERY PELLETS Temperature 36.6 C (97.9 F) 12/24/2012 10:00 AM CDT Respiratory Rate 16 07/26/2024 3:00 PM COMPRESSOR BATTERY PELLETS Oxygen Saturation 97% 07/26/2024 3:00 PM COMPRESSOR BATTERY PELLETS Inhaled Oxygen Concentration - - Weight 125.7 kg (277 lb 3.2 oz) 07/26/2024 3:00 PM COMPRESSOR BATTERY PELLETS Height 163 cm (5' 4.17) 07/26/2024 3:00 PM COMPRESSOR BATTERY PELLETS Body Mass Index 47.33 07/26/2024 3:00 PM COMPRESSOR BATTERY PELLETS Plan of Treatment Health Maintenance Due Date Last Done Comments COVID-19 vaccine series ( season) 2024 02/20/2021, 01/23/2021 Influenza Vaccine (Season Ended) 2025 10/03/2014, 10/03/2014, 06/28/2013, Additional history exists BMI (ht and wt on same day) for age 18+ 07/26/2025 07/26/2024 Chlamydia for age 16-24 07/26/2025 07/26/2024 Depression screening for age 12+ 07/26/2025 07/26/2024 Pap test for age 21-65 07/26/2027 07/26/2024 Tetanus booster 07/26/2034 07/26/2024, 05/21/2012 Pneumococcal series for age 6-49 Aged Out 10/16/2001, 02/20/2001, 2000, Additional history exists No longer eligible based on patient's age to complete this topic HPV series for age 9-26 Completed 10/03/19 15, 10/03/2014, 04/19/2013, Additional history exists HIV for age 15-65 Completed 07/26/2024 Hepatitis C screening for age 18-79 Completed 07/26/2024 Tdap Completed 07/26/2024, 05/21/2012 Medical Devices Implanted Type Area Senior Developer Device Identifier Shelf Expiration Date Model / Serial / Lot Tube Vent 1.27mm Inner Collar Button [id number] - [id number] Implanted:Qty: 2 on 12/24/2012 by Rasheed Arguello MD at [facility] Bilateral : Ear [employer] 09/22/2022 [id number] / / [id number] Procedures Procedure Name Priority Date/Time Associated Diagnosis Comments JOINERY SETTER OUT THIN PREP PAP - AGES 21-24 (BitTorrent) Routine 07/26/2024 4:15 PM COMPRESSOR BATTERY PELLETS Screening for cervical cancer GC CHLAMYDIA TRACH PROBE Routine 07/26/2024 3:44 PM COMPRESSOR BATTERY PELLETS Screening for chlamydial disease HIV 1/2 ANTIGEN/ANTIBODY FOURTH GENERATION W/RFL (QUEST) Routine 07/26/2024 3:38 PM COMPRESSOR BATTERY PELLETS Screening for HIV (human immunodeficiency virus) ANTI HCV Routine 07/26/2024 3:38 PM COMPRESSOR BATTERY PELLETS Need for hepatitis C screening test from Last 3 Months or Most Recently Relevant to Health Maintenance Results * JOINERY SETTER OUT THIN PREP PAP - AGES 21-24 (BitTorrent) [[id number]] (07/26/2024 4:15 PM COMPRESSOR BATTERY PELLETS) CLINICAL INFORMATION [facility] Comment:None given LMP [facility] Comment:07/08/24 PREV. PAP [facility] Comment:FIRST, UNKNOWN PREV. BX [facility] Comment:NA SOURCE JOINERY SETTER OUT [facility] Comment:Cervix STATEMENT OF ADEQUACY [facility] Comment: Satisfactory for evaluation. Endocervical/transformation zone component absent. INTERPRETATION/RESUL T [facility] Comment: Cytology Results: Negative for intraepithelial lesion or malignancy. COMMENT [facility] Comment: This Pap test has been evaluated with computer assisted technology. HOT MIX OPERATOR [facility] Comment: RRD, CT(ASCP) CT Screening location: [address] [address] THINPREP TIS PAP ALWAYS MESSAGE [facility] Comment: EXPLANATORY NOTE: The Pap is [...] clinical information. Other (Cervical) 07/26/2024 4:15 PM COMPRESSOR BATTERY PELLETS 07/27/2024 3:37 AM COMPRESSOR BATTERY PELLETS Narrative [facility] - 07/30/2024 9:28 PM COMPRESSOR BATTERY PELLETS SPLIT 07/26/2024 FROM [id number] us Carmina MOONEY PATHOLOGY/CYTOLOGY Fin al Result [address] [address], [address] [address] * GC CHLAMYDIA TRACH PROBE [[id number]] (07/26/2024 3:44 PM COMPRESSOR BATTERY PELLETS) CHLAMYDIA PROBE Negative 1:23 PM COMPRESSOR BATTERY PELLETS [facility] N GONORRHOEAE PROBE Negative 07/27/2024 1:23 PM COMPRESSOR BATTERY PELLETS [facility] Other VAGINAL SWAB / Unknown Non-Blood / Unknown 07/26/2024 3:44 PM COMPRESSOR BATTERY PELLETS 07/26/2024 3:44 PM COMPRESSOR BATTERY PELLETS us Carmina MOONEY MICROBIOLOGY Final Result [facility] [address] [place] [address], * HIV 1/2 ANTIGEN/ANTIBODY FOURTH GENERATION W/RFL (QUEST) (07/26/2024 3:38 PM COMPRESSOR BATTERY PELLETS) HIV AG/AB, 4TH GEN NON-REACT JULI NON-REACT JULI [facility] Comment: HIV-1 antigen and HIV-1/HIV-2 antibodies were [...] purpose. For additional information please refer to http://Epiclist.[employer]/faq/BTF495 (This link is being provided for informational/ educational purposes only.) The performance of this assay has not been clinically validated in patients less than 2 years old. Blood BLOOD SPECIMEN / Unknown 07/26/2024 3:38 PM COMPRESSOR BATTERY PELLETS 07/26/2024 3:38 PM COMPRESSOR BATTERY PELLETS Narrative [facility] - 07/27/2024 5:30 AM COMPRESSOR BATTERY PELLETS FASTING:NO MULTIPLE TESTING PRIORITIES; ROUTINE TESTING TO FOLLOW. FASTING: NO Carmina MOONEY SEND OUTS Final Result [facility] [address] [place] [address], [facility] [address] [place] [address] * ANTI HCV (07/26/2024 3:38 PM COMPRESSOR BATTERY PELLETS) HEPATITIS C ANTIBODY NON-REACTI VE NON-REACT JULI [facility] Comment: HCV antibody was non-reactive. There is no laboratory evidence of HCV infection. In most cases, no further action is required. However, if recent HCV exposure is suspected, a test for HCV RNA (test code 05139) is suggested. For additional information please refer to http://Epiclist.[employer]/faq/VYS90z6 (This link is being provided for informational/ educational purposes only.) Blood BLOOD SPECIMEN / Unknown 07/26/2024 3:38 PM COMPRESSOR BATTERY PELLETS 07/26/2024 3:38 PM COMPRESSOR BATTERY PELLETS Narrative [facility] - 07/27/2024 5:30 AM COMPRESSOR BATTERY PELLETS FASTING:NO MULTIPLE TESTING PRIORITIES; ROUTINE TESTING TO FOLLOW. FASTING: NO Carmina MOONEY SEND OUTS Final Result [facility] [address] [place] [address], [facility] [address] [place] [address] from Last 3 Months or Most Recently Relevant to Health Maintenance Insurance [facility] Advance Directives * Full Code (Latest Code Status on File) Date Activated Date Inactivated Comments 12/24/2012 9:56 AM 12/24/2012 1:38 PM
--- OUTSIDE RECORDS SUMMARY | 2025-02-07 07:43 | XMS_ITS | Encounter Summary ---
Author Organization [facility] Address [address] [place] [address] Care Team Providers Care Food Operations Manager Name Role Phone Jess Mcfadden MD Primary Care Provider [phone] Dior Curtis MD Primary Care Provider [phone] No Ref-Primary, Physician Primary [facility] jermey Shana Kam APRN SANITATION WORKER Unavailable [phone] Dior Curtis MD Primary Care Provider [phone] Gillian Hansen RN Unavailable Unavailable Dior Curtis MD Unavailable [phone] No Ref-Primary, Physician Unavailable [phone] No Ref-Primary, Physician Primary Care Provider Reason for Visit * Reason Onset Date Comments Outpatient 11/01/2014 php Encounter Details Date Type Department Care Team (Late st Contact Info) Description 11/01/2014 Telephone [facility] Behavioral Health Intake [address] [place] [address] Generic, Behavioral IntakeMD Outpatient (php) [...] on file Legal Sex Female 4:40 AM TEXTILE MACHINE MAINTENANCE MECHANIC Gender Identity Not on file Sexual Orientation Not on file COVID-19 Exposure Response Date Recorded In the last month, have you been in contact with someone who was confirmed or suspected to have Coronavirus / COVID-19? No / Unsure 12/24/2021 2:48 PM CDT documented as of this encounter Miscellaneous Notes * Telephone Encounter - Azael Stiles - 11/02/2014 9:38 AM CST Dup order written for php. ILE MACHINE MAINTENANCE MECHANIC * Telephone Encounter - Elsa Perales - 11/01/2014 11:01 AM CST recvd order from dr arshad[facility] for referral to adol php; completed. ILE MACHINE MAINTENANCE MECHANIC documented in this encounter Plan of Treatment Not on file documented as of this encounter Visit Diagnoses Not on filedocumented in this encounter Care Teams Food Operations Manager Relationship Specialty Start Date End Date Jess Mcfadden MD [facility] [address] [facility] [address] PCP - General 03/25/12 12/28/14 Dior Curtis MD [address], [address] [place] [address] PCP - General Family Practice 12/29/14 08/27/17 No Ref-Primary, Physician PCP - General 08/28/17 08/30/17 Physicians, [facility] [address] [facility] [address] [place] [phone] PCP - General 08/31/17 09/07/17 Shana Kam APRN SANITATION WORKER [address] [facility] [address] [place] [phone] PCP - Mental Health/Behavioral Medicine Nurse Practitioner 09/01/17 Dior Curtis MD [address], [address] [address] PCP - General Family Practice 09/08/17 12/19/20 No Ref-Primary, Physician PCP - General 12/24/21 Gillian Hansen, RN [address] [address] Lead Superintendent Maintenance Airports Primary Care - CC 12/03/17 05/28/18 Dior Curtis MD [address], [address] [place] [address] Assigned PCP 12/01/14 09/06/22 No Ref-Primary, Physician 12/24/21 documented as of this encounter
--- OUTSIDE RECORDS SUMMARY | 2025-02-07 07:43 | XMS_ITS | Encounter Summary ---
Author Organization [facility] Address [address] [place] [address] Care Team Providers Care Utilities Operator Name Role Phone Jess Mcfadden MD Primary Care Provider [phone] Dior Curtis MD Primary Care Provider [phone] No Ref-Primary, Physician Primary [facility] jeremy Shana Kam APRN TROLLEY WORKER Unavailable [phone] Dior Curtis MD Primary Care Provider [phone] Gillian Hansen RN Unavailable Unavailable Dior Cutris MD Unavailable [phone] No Ref-Primary, Physician Unavailable [phone] No Ref-Primary, Physician Primary Care Provider Reason for Visit * Reason Onset Date Comments MH/CD Inpatient 10/23/2014 Encounter Details Date Type Department Care Team (Late st Contact Info) Description 10/23/2014 Telephone [facility] Behavioral Health Intake [address] [place] [address] Generic, Behavioral Intake, MH/CD Inpatient [...] on file Legal Sex Female 4:40 AM CLASSROOM TECHNOLOGY TECHNICIAN Gender Identity Not on file Sexual Orientation [...] 10/23/2014 4:10 PM CST Per [place] at [place] patient's father requested [facility] remain there [facility] [place] SROOM TECHNOLOGY TECHNICIAN * Telephone Encounter - Zach Rodriguez - 10/23/2014 12:57 PM CST Pt at [facility]. B: pt brought to er by [...] depression. Calm, cooperative seeking help. R: [email or web address] SROOM TECHNOLOGY TECHNICIAN SROOM TECHNOLOGY TECHNICIAN documented in this encounter Plan of Treatment Not on file documented as of this encounter Visit Diagnoses Not on filedocumented in this encounter Care Teams Utilities Operator Relationship Specialty Start Date End Date Jess Mcfadden MD [facility] [address] [facility] [place] [address] PCP - General 03/25/12 12/28/14 Dior Curtis MD [address], [address] [place], [place] [address] PCP - General Family Practice 12/29/14 08/27/17 No Ref-Primary, Physician PCP - General 08/28/17 08/30/17 Physicians, [place] [address] [address] [facility] [address] [place] [phone] PCP - General 08/31/17 09/07/17 Shana Kam APRN [facility] [address] [facility] [address] [place] [phone] PCP - Mental Health/Behavioral Medicine Nurse Practitioner 09/01/17 Dior Curtis MD [address], [address] [place] [address] PCP - General Family Practice 09/08/17 12/19/20 No Ref-Primary, Physician PCP - General 12/24/21 Gillian Hansen, RN [address] [facility] [address] [place] [phone] Lead Commercial Lawn Specialist Primary Care - CC 12/03/17 05/28/18 Dior Curtis MD [address], [address] [place] [address] Assigned PCP 12/01/14 09/06/22 No Ref-Primary, Physician 12/24/21 documented as of this encounter
--- OUTSIDE RECORDS SUMMARY | 2025-02-07 07:43 | XMS_ITS | Encounter Summary ---
Author Organization [facility] Address [address] [place] [address] Care Team Providers Care Paper Cutter Operator Name Role Phone Physicians, [facility] Primary Care [facility] jeremy Shana Kam APRN TOWER LOADER OPERATOR Unavailable [phone] Dior Curtis MD Primary Care Provider [phone] Gillian Hansen RN Unavailable Unavailable Dior Curtis MD Unavailable [phone] No Ref-Primary, Physician Unavailable [phone] No Ref-Primary, Physician Primary Care Provider Encounter Details Date Type Department Care Team (Late st Contact Info) Description 09/01/2017 Telephone [facility] Behavioral Health Intake [address] [place] [address] Generic, Behavioral Intake, Social History Tobacco [...] on file Legal Sex Female 4:40 AM SWIMMING POOL MAINTENANCE SUPERVISOR Gender Identity Not on file Sexual [...] Gillian Perera sent at 09/09/2017 8:07 AM SWIMMING POOL MAINTENANCE SUPERVISOR ----- Regarding: appt needed We need a [employer] appt for 09/08 pls - pt was on 7A - [email or web address]. Please add billing indicator 89. Thank you - k MING POOL MAINTENANCE SUPERVISOR * Telephone Encounter - KenaonThi - 09/01/2017 12:32 AM SWIMMING POOL MAINTENANCE SUPERVISOR S: Pt is a 17 yo female at [facility] for SI. Report given by Mana. B: Pt has a hx of depression and cutting. Potato Spotter reports pt got upset with father and engaged in SIB via cutting. Pt endorsed SI with a plan to cut herself to . Potato Spotter reports pt's cuts are superficial. Pt told outcomes analyst that if she is discharged she will go home and kill herself. Pt has a hxof SI and hx of a suicide attempt 1 year ago. Pt is medically cleared. No violence or aggression reported. Potato Spotter reports pt's medications have recently been switched, pt switched from Seroquel to Latuda. Pt states she tried marijuana tonight, utox is negative. OP providers include machine adjuster leader case trim, psychiatrist, and a school therapist. Affect is depressed, pt is calm and cooperative. A: Pt's father, Zach Starkey, authorizing tx. Can be reached at R: Vega accepted. María/ Sami MING POOL MAINTENANCE SUPERVISOR documented in this encounter Plan of Treatment Not on file documented as of this encounter Visit Diagnoses Not on filedocumented in this encounter Additional Health Concerns Assessment Noted Time PHQ-9 Depression Total Score: 5 05/09/20 16 7:16 AM CDT documented as of this encounter Care Teams Paper Cutter Operator Relationship Specialty Start Date End Date Physicians, [place] [address] [address] [facility] [address] [place] [phone] PCP - General 08/31/17 09/07/17 Shana Kam APRN TOWER LOADER OPERATOR [address] [facility] [address] [place] [phone] PCP - Mental Health/Behavioral Medicine Nurse Practitioner 09/01/17 Dior Curtis MD [address], [address] [place] [address] PCP - General Family Practice 09/08/17 12/19/20 No Ref-Primary, Physician PCP - General 12/24/21 Gillian Hansen RN [address], [address] [address] [place] [address] Lead Grease Cup Filler Primary Care - CC 12/03/1705/28 Dior Curtis MD [address], [address] [place] [phone] Assigned PCP 12/01/14 09/06/22 No Ref-Primary, Physician 12/24/21 documented as of this encounter
--- OUTSIDE RECORDS SUMMARY | 2025-02-07 07:43 | XMS_ITS | Encounter Summary ---
Author Organization [place] Address [address] [place] [address] Care Team Providers Care Campus Safety Officer Name Role Phone No Ref-Primary, Physician Primary Care Provider Physicians, [facility]remy Shana Kam APRN COMBAT CONTROL Unavailable [phone] Dior Curtis MD Primary Care Provider [phone] Gillian Hansen RN Unavailable Unavailable Dior Curtis MD Unavailable [phone] No Ref-Primary, Physician Unavailable [phone] No Ref-Primary, Physician Primary Care Provider Reason for Visit * Reason Onset Date Comments MH/CD Inpatient 08/28/2017 Encounter Details Date Type Department Care Team (Late st Contact Info) Description 08/28/2017 Telephone [facility] Behavioral Health Intake [address] [place] [phone] Generic, Behavioral Intake, MH/CD Inpatient Social [...] on file Legal Sex Female 4:40 AM LOOSE HAND PACKER Gender Identity Not on file Sexual Orientation Not on file COVID-19 Exposure Response Date Recorded In the last month, have you been in contact with someone who was confirmed or suspected to have Coronavirus / COVID-19? No / Unsure 12/24/2021 2:48 PM CDT documented as of this encounter Miscellaneous Notes * Telephone Encounter - Muna Matt - 08/28/2017 7:47 PM CST S: pt is a 17 yr old fem in [facility] ED for SI w/ plan to [...] vol / parents will sign in R; internet assessor reports pt will now contract for safety and family feels comfortable taking her home. E HAND PACKER documented in this encounter Plan of Treatment Not on file documented as of this encounter Visit Diagnoses Not on filedocumented in this encounter Additional Health Concerns Assessment Noted Time PHQ-9 Depression Total Score: 5 05/09/20 16 7:16 AM CDT documented as of this encounter Care Teams Campus Safety Officer Relationship Specialty Start Date End Date No Ref-Primary, Physician PCP - General 08/28/17 08/30/17 Physicians, [facility] [address] [facility] [address] [place] [address] PCP - General 08/31/17 09/07/17 Shana Kam APRN [facility] [address] [phone] PCP - Mental Health/Behavioral Medicine Nurse Practitioner 09/01/17 Dior Curtis MD [address], [address] [address] PCP - General Family Practice 09/08/17 12/19/20 No Ref-Primary, Physician PCP - General 12/24/21 Gillian Hansen RN [address], [address] [address] Lead Uniform Room Attendant Primary Care - CC 12/03/1705/28 Dior Curtis MD [address], [address] [address] Assigned PCP 12/01/14 09/06/22 No Ref-Primary, Physician 12/24/21 documented as of this encounter
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
--- OUTSIDE RECORDS SUMMARY | 2025-02-07 07:43 | XMS_ITS | Clinical Summary ---
[facility] Address [address] [place] [address] Care Team Providers Care Courtroom Reporter Name Role Phone Jess Mcfadden MD Primary Care Provider [phone] Source Comments You are receiving this document as you are listed as the primary care provider,follow-up provider, or the patient has been referred to you for consultation.This is in compliance with the Medicare andChildren'S Hospital For Rehabilitationcaid EHR Incentive Program,which states Providers who transition their patient to another setting of careor provider of care or refers their patient to another provider of care shouldprovide summary care record for each transition of care or referral. [employer] Allergies No known active allergies Medications * [...] 151 kg (333 lb) 10/17/2018 8:11 AM MOLDING SUPERVISOR Height 162.6 cm (5' 4) 04/19/2017 9:41 AM CDT Body Mass Index - - Plan of Treatment Health Maintenance Due Date Last Done Comments Cervical Cancer Screening Due 2000 Chlamydia 2000 Hep C Screening (Preventive Services) 2000 HIV Screening (Preventive Services) 2016 Adult Preventive Visit 2018 HepB Vaccine (1) 2019 Pneumococcal Vaccine (1 of 2 - PCV) 2019 10/16/2001, 02/20/2001, 2000, Additional history exists DTaP/Tdap/Td Vaccine (7 - Tdap) 05/21/2022 05/21/2012, 05/21/2012, 04/15/2006, Additional history exists COVID-19 Vaccine ( season) 2024 02/20/2021, 01/23/2021 Influenza Vaccine (Season Ended) 2025 10/03/2014, 10/03/2014, 06/28/2013, Additional history exists Zoster/Shingles Vaccine (1 of 2) 2050 IPV (Polio) Vaccine Completed 04/15/2006, 10/16/2001, 05/15/2001, Additional history exists HepA Vaccine Completed 04/19/2013, 03/23, 06/26/2012, Additional history exists HPV Vaccine Completed 10/03/2014, 09/22, 04/19/2013, Additional history exists MCV4 Vaccine Completed 05/31/2019, 04/24, 05/21/2012 Hib Vaccine Aged Out No longer eligi ble based on patient's age to complete this topic Meningococcal B Vaccine Aged Out No l onger eligible based on patient's age to complete this topic Insurance SELF INSURED SELF INSURED Care Teams Courtroom Reporter Relationship Specialty Start Date End Date Jess Mcfadden MD [address] [place] [phone] PCP - General 01/14/14
--- OUTSIDE RECORDS SUMMARY | 2025-02-07 07:43 | XMS_ITS | Encounter Summary ---
Author Organization [facility] Address [address] [place] [address] Care Team Providers Care Apprentice Carpenter Name Role Phone Shana Kam APRN ROAD TESTER Unavailable [phone] Dior Curtis MD Primary Care Provider [phone] Dior Curtis MD Unavailable [phone] No Ref-Primary, Physician Unavailable [phone] No Ref-Primary, Physician Primary Care Provider Encounter Details Date Type Department Care Team (Late st Contact Info) Description 05/25/2019 Documentation Only [facility]o [facility]ine [address] [place] [address] Rosaline Archer Social History Tobacco Use Types [...] on file Legal Sex Female 4:40 AM DRAFTER ELECTRONIC Gender Identity Not on file Sexual Orientation Not on file COVID-19 Exposure Response Date Recorded In the last month, have you been in contact with someone who was confirmed or suspected to have Coronavirus / COVID-19? No / Unsure 12/24/2021 2:48 PM CDT documented as of this encounter Progress Notes * Rosaline Archer - 05/25/2019 10:11 AM CDT Received intake call for home oxygen at 9:29 AM. Reviewed patient's chart; Patient qualifies under Medicare guidelines and all documentation is in the chart including a good order. 10:03 AM- Called to offer choice and patient's father is okay with [facility] setting them up. Discussed equipment with patient and informed them that we would be to bedside withoxygen in the next 2 hours. 9:57 AM- Spoke with careers adviser,Kerline, confirmed we received the order, and provided them with ETA of oxygen. documented in this encounter Plan of Treatment Not on file documented as of this encounter Visit Diagnoses Not on filedocumented in this encounter Additional Health Concerns Assessment Noted Time PHQ-9 Depression Total Score: 4 08/04/20 18 4:22 PM DRAFTER ELECTRONIC documented as of this encounter Care Teams Apprentice Carpenter Relationship Specialty Start Date End Date Shana Kam APRN ROAD TESTER PCP - Mental Health/Behavioral Medicine Nurse Practitioner 09/01/17 Dior Curtis MD [address] , [facility] [address] [place] [address] PCP - General Family Practice 09/08/17 12/19/20 No Ref-Primary, Physician PCP - General 12/24/21 Dior Curtis MD [address] [address] Assigned PCP 12/01/14 09/06/22 No Ref-Primary, Physician 12/24/21 documented as of this encounter
--- OUTSIDE RECORDS SUMMARY | 2025-02-07 07:43 | XMS_ITS | Encounter Summary ---
Author Organization [facility] Address [address] [place] [address] Care Team Providers Care Cook Night Name Role Phone Jess Mcfadden MD Primary Care Provider [phone] Dior Curtis MD Primary Care Provider [phone] No Ref-Primary, Physician Primary [facility] jeremy Shana Kam APRN ENRICHMENT TEACHER Unavailable [phone] Dior Curtis MD Primary Care Provider [phone] Gillian Hansen RN Unavailable Unavailable Dior Curtis MD Unavailable [phone] No Ref-Primary, Physician Unavailable No Ref-Primary, Physician Primary Care Provider Reason for Visit * Reason Onset Date Comments MH/CD Inpatient 10/24/2014 Encounter Details Date Type Department Care Team (Late st Contact Info) Description 10/24/2014 Telephone [facility] Behavioral Health Intake [address] [place] [address] Generic, Behavioral Intake, MH/CD Inpatient [...] on file Legal Sex Female 4:40 AM MANAGER STAFFING Gender Identity Not on file Sexual Orientation Not on file COVID-19 Exposure Response Date Recorded In the last month, have you been in contact with someone who was confirmed or suspected to have Coronavirus / COVID-19? No / Unsure 12/24/2021 2:48 PM CDT documented as of this encounter Miscellaneous Notes * Telephone Encounter - Manasa Herrera - 10/24/2014 12:45 PM CST S: Received call from Nasir at [facility], # [phone] B: Pt still in their ED, admission to 4A should not have been canceled yesterday but was due to Dad's preference for pt to go to [facility]. Since PC doesn't have availability and remains [...] safety on unit. R: Tambyraja / 4a GER STAFFING documented in this encounter Plan of Treatment Not on file documented as of this encounter Visit Diagnoses Not on filedocumented in this encounter Care Teams Cook Night Relationship Specialty Start Date End Date Jses Mcfadden MD [facility] [address] [place] [address] PCP - General 03/25/12 12/28/14 Dior Curtis MD [address], [address] [place] [address] PCP - General Family Practice 12/29/14 08/27/17 No Ref-Primary, Physician PCP - General 08/28/17 08/30/17 Physicians, [place] [address] [phone] PCP - General 08/31/17 09/07/17 Shana Kam APRN [facility] [address] [phone] PCP - Mental Health/Behavioral Medicine Nurse Practitioner 09/01/17 Dior Curtis MD [address], [address] [address] PCP - General Family Practice 09/08/17 12/19/20 No Ref-Primary, Physician PCP - General 12/24/21 Gillian Hansen, RN [address] [phone] Lead Strategy Lead Primary Care - CC 12/03/17 05/28/18 Dior Curtis MD [address], [address] [place] [address] Assigned PCP 12/01/14 09/06/22 No Ref-Primary, Physician 12/24/21 documented as of this encounter
--- OUTSIDE RECORDS SUMMARY | 2025-02-07 07:43 | XMS_ITS | Encounter Summary ---
Author Organization [facility] Address [address] [place] [address] Care Team Providers Care Business Change Manager Name Role Phone Shana Kam APRN BATCH TESTER Unavailable [phone] Dior Curtis MD Unavailable [phone] No Ref-Primary, Physician Unavailable [phone] No Ref-Primary, Physician Primary Care Provider Encounter [...] on file Legal Sex Female 4:40 AM GUEST REQUEST RUNNER Gender Identity Not on file Sexual Orientation [...] Depression Total Score: 14 020 2:10 PM GUEST REQUEST RUNNER documented as of this encounter Care Teams Business Change Manager Relationship Specialty Start Date End Date Shana Kam APRN CNP PCP - Mental Health/Behavioral Medicine Nurse Practitioner 09/01/17 No Ref-Primary, Physician PCP - General 12/24/21 Dior Curtis MD [address], [address] [place] [address] Assigned PCP 12/01/14 09/06/22 No Ref-Primary, Physician 12/24/21 documented as of this encounter
--- OUTSIDE RECORDS SUMMARY | 2025-02-07 07:43 | XMS_ITS | Encounter Summary ---
Author Organization [facility] Address [address] [place] [address] Care Team Providers Care First Line Production Supervisor Name Role Phone Jess Mcfadden MD Primary Care Provider [phone] Dior Curtis MD Primary Care Provider [phone] No Ref-Primary, Physician [facility] jeremy Shana Kam APRN MARKETING FORECASTER Unavailable [phone] Dior Curtis MD Primary Care Provider [phone] Gillian Hansen RN Unavailable Unavailable Dior Curtis MD Unavailable [phone] No Ref-Primary, Physician Unavailable [phone] No Ref-Primary, Physician Primary Care Provider Reason for Visit * Reason Onset Date Comments MH/CD Inpatient 11/06/2014 MH Outpatient 11/06/2014 Encounter Details Date Type Department Care Team (Late st Contact Info) Description 11/06/[address] [facility] Behavioral Health Intake [address] [place] [address] Generic, Behavioral Intake, MH/CD Inpatient; [...] on file Legal Sex Female 4:40 AM FILTRATION PLANT OPERATOR Gender Identity Not on file Sexual [...] Aguilar RN sent at 11/17/2014 1:42 PM FILTRATION PLANT OPERATOR ----- Regarding: New start 11/21/[address] Ayoub New start 11/21/[address] Ayoub RATION PLANT OPERATOR * Telephone Encounter - Mckayla Kinsey - 11/16/2014 1:19 PM CST ----- Message from Kira Aguilar RN sent at 11/16/2014 1:13 PM FILTRATION PLANT OPERATOR ----- Regarding: Evaluation scheduled for 10/17/2014 at 1100 Evaluation scheduled for 10/17/2014 @ 1100 RATION PLANT OPERATOR * Telephone Encounter - Akash Davidson, RN - 11/06/2014 9:29 PM CST S: Patient presents to [place] ED brought in by father. Bee provides [...] to station 7AE under Marcus Sahni accepts. RATION PLANT OPERATOR documented in this encounter Plan of Treatment Not on file documented as of this encounter Visit Diagnoses Not on filedocumented in this encounter Care Teams First Line Production Supervisor Relationship Specialty Start Date End Date Jess Mcfadden MD [facility] [address] [place] [address] PCP - General 03/25/12 12/28/14 Dior Curtis MD [address] [facility] [address] [place] [address] PCP - General Family Practice 12/29/14 08/27/17 No Ref-Primary, Physician PCP - General 08/28/17 08/30/17 Physicians, [facility] [address] [phone] PCP - General 08/31/17 09/07/17 Shana Kam APRN [facility] [address] [phone] PCP - Mental Health/Behavioral Medicine Nurse Practitioner 09/01/17 Dior Curtis MD [address], [address] [place] [address] PCP - General Family Practice 09/08/17 12/19/20 No Ref-Primary, Physician PCP - General 12/24/21 Gillian Hansen RN [address] [phone] Lead Data Center Operator Primary Care - CC 12/03/17 05/28/18 Dior Curtis MD [address], [address] [place] [address] Assigned PCP 12/01/14 09/06/22 No Ref-Primary, Physician 12/24/21 documented as of this encounter
[2025-02-07 07:52] VITALS: BP 128/78; PULSE 86; RESP 18; TEMP 36.8; O2SAT 97; BMI 47.8
--- NOTE | 2025-02-07 08:04 | ED.PREGNANCY ---
HPI - General Time Seen by Provider: 08:04 Date Seen: 02/07/25 Chief complaint: Anxiety Stated complaint: 15 wks , concerned Time Seen by Provider: 02/07/25 08:02 Source: patient and RN notes reviewed Mode of arrival: ambulatory Limitations: no limitations History of Present Illness HPI Narrative: This 24-year-old female about 15 weeks coming in with concerns about the . She would like heart tones. She has felt just a little fluttery type sensation almost like bubbles in her uterus. She was unable to get into her OB, states she has to get to work. She does endorse anxiety about this but overall is just really worried about the baby. She has not had any vaginal bleeding no odor, no discharge. She has had no fevers or chills. No urinary symptoms. Related Data Home Medications ?Medication ?Instructions ?Recorded ?Confirmed vits no.126-ferrous fum 1 tab PO QDAY 12/08/24 01/14/25 28 mg iron-folic acid 800 mcg tablet (Classic ) Previous Rx's ?Medication ?Instructions ?Recorded escitalopram oxalate 10 mg tablet 10 mg PO QDAY #30 tabs 12/15/24 ondansetron 4 mg disintegrating 4 mg PO Q6H PRN nausea and 12/23/24 tablet vomiting #30 tabs Allergies Allergy/AdvReac Type Severity Reaction Status Date / Time No Known Drug Allergies Allergy Verified 02/07/25 07:51 Review of Systems Narrative: As per HPI. 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 Breathing easy on room air. Does seem mildly anxious but has good eye contact, no pressured speech. Lungs clear anteriorly, CV regular rate and rhythm, no murmur, normal S1-S2. Abdomen is obese but soft, nontender. Ultrasound was brought in, fetus and placenta were visualize, actually did even see the umbilical cord. Baby is actively moving, heart tones could be seen and appear normal. Documenting provider has reviewed patient's vital signs: yes Course Course ED Course: Patient was significantly relieved with visualization of the ultrasound. Reviewed with her that this is just a cursory exam, this is not a full survey as I am not qualified for that. Certainly the placenta looks normal from what I could see, could see active movement and normal heart tones. Will have her follow up with her OB. She has no other concerns at this time and is relieved. Vital Signs Vital signs: Initial Vital Signs Temperature 98.3 F 02/07/25 07:52 Temperature Source Temporal Artery Scan 02/07/25 07:52 Pulse Rate 86 02/07/25 07:52 Respiratory Rate 18 02/07/25 07:52 Blood Pressure 128/78 02/07/25 07:52 Blood Pressure Mean 94 02/07/25 07:52 Pulse Oximetry 97 02/07/25 07:52 Oxygen Delivery Method Room Air 02/07/25 07:52 Vital Signs Temperature 98.3 F 02/07/25 07:52 Pulse Rate 86 02/07/25 07:52 Respiratory Rate 18 02/07/25 07:52 Blood Pressure 128/78 02/07/25 07:52 Pulse Oximetry 97 02/07/25 07:52 Oxygen Delivery Method Room Air 02/07/25 07:52 Temperature 98.3 F 02/07/25 07:52 Pulse Rate 86 02/07/25 07:52 Respiratory Rate 18 02/07/25 07:52 Blood Pressure 128/78 02/07/25 07:52 Pulse Oximetry 97 02/07/25 07:52 Oxygen Delivery Method Room Air 02/07/25 07:52 Discharge Plan Discharge Clinical Impression: Concern about complication without diagnosis Patient Disposition: Home, Self-Care Condition: Stable Instructions: at 15 to 18 Weeks (ED) Additional Instructions: The limited ultrasound done today shows active movement and heart tones which are all reassuring. Please follow-up with your wastewater treatment plant supervisor. If you have further concerns or issues, contact the OB Clinic. Activity Level: Activity as Tolerated Prescriptions: No Action escitalopram oxalate 10 mg tablet 10 mg PO QDAY Qty: 30 2RF Classic 28 mg iron- 800 mcg tablet 1 tab PO QDAY ondansetron 4 mg tablet,disintegrating 4 mg PO Q6H PRN (Reason: nausea and vomiting) Qty: 30 2RF Follow Up/Referrals: Provider,Not a Local [Primary Care Provider] - Stand Alone Forms: MyHealth Info Instructions
--- OUTSIDE RECORDS SUMMARY | 2025-02-07 08:26 | XMS_ITS | Encounter Summary ---
Author Organization [place] Address [address] [place] [address] Care Team Providers Care Denture Technician Name Role Phone Physicians, [facility] Primary Care Provi jeremy Shana Kam APRN BOMBSIGHT SPECIALIST Unavailable Dior Curtis MD Primary Care Provider [phone] Gillian Hansen RN Unavailable Unavailable Dior Curtis MD Unavailable [phone] No Ref-Primary, Physician Unavailable [phone] No Ref-Primary, Physician Primary Care Provider Encounter Details Date Type Department Care Team (Late st Contact Info) Description 09/01/2017 Telephone [facility] Behavioral Health Intake [address] [place] [address] Generic, Behavioral Intake, Social History [...] on file Legal Sex Female 4:40 AM LOCK CORNER MACHINE OPERATOR Gender Identity Not on file Sexual Orientation Not on file COVID-19 Exposure Response Date Recorded In the last month, have you been in contact with someone who was confirmed or suspected to have Coronavirus / COVID-19? No / Unsure 12/24/2021 2:48 PM CDT documented as of this encounter Miscellaneous Notes * Telephone Encounter - Azael Stilse - 09/09/2017 10:15 AM CST ----- Message from Gillian Perera sent at 09/09/2017 8:07 AM LOCK CORNER MACHINE OPERATOR ----- Regarding: appt needed We need a [employer] Relapse Prevention appt for 09/08 pls - pt was on 7A - [facility]#[phone]. Please add billing indicator 89. Thank you - k CORNER MACHINE OPERATOR * Telephone Encounter - KenaonThi - 09/01/2017 12:32 AM LOCK CORNER MACHINE OPERATOR S: Pt is a 17 yo female at [facility] ER for SI. Report given by Mana. B: Pt has a hx of depression and cutting. Media Relations Intern reports pt got upset with father and engaged in SIB via cutting. Pt endorsed SI with a plan to cut herself to . Media Relations Intern reports pt's cuts are superficial. Pt told ball point splitter that if she is discharged she will go home and kill herself. Pt has a hxof SI and hx of a suicide attempt 1 year ago. Pt is medically cleared. No violence or aggression reported. Media Relations Intern reports pt's medications have recently been switched, pt switched from Seroquel to Latuda. Pt states she tried marijuana tonight, utox is negative. OP providers include special education case manager, psychiatrist, and a school therapist. Affect is depressed, pt is calm and cooperative. A: Pt's father, Zach Starkey, authorizing tx. Can be reached at R: Vega accepted. María/ Sami CORNER MACHINE OPERATOR documented in this encounter Plan of Treatment Not on file documented as of this encounter Visit Diagnoses Not on filedocumented in this encounter Additional Health Concerns Assessment Noted Time PHQ-9 Depression Total Score: 5 05/09/20 16 7:16 AM CDT documented as of this encounter Care Teams Denture Technician Relationship Specialty Start Date End Date Physicians, [place] [address] [facility] [address] [place] [phone] PCP - General 08/31/17 09/07/17 Shana Kam APRN BOMBSIGHT SPECIALIST [address] [facility] [address] [place] [phone] PCP - Mental Health/Behavioral Medicine Nurse Practitioner 09/01/17 Dior Curtis MD [address], [place] [address] [place] [address] PCP - General Family Practice 09/08/17 12/19/20 No Ref-Primary, Physician PCP - General 12/24/21 Gillian Hansen RN [address], JUSTICE [address] [place] [address] Lead Property Claims Manager Primary Care - CC 12/03/1705/28 Dior Curtis MD [address], JUST[place] [address] [place] [id number] Assigned PCP 12/01/14 09/06/22 No Ref-Primary, Physician 12/24/21 documented as of this encounter
--- OUTSIDE RECORDS SUMMARY | 2025-02-07 08:26 | XMS_ITS | Encounter Summary ---
Author Organization [place] Address [address] [place] [address] Care Team Providers Care Clinical Account Specialist Name Role Phone No Ref-Primary, Physician Primary Care Provider Physicians, [facility] Primary [facility] jeremy Shana Kam APRN FURNITURE ASSEMBLER Unavailable [phone] Dior Curtis MD Primary Care Provider [phone] Gillian Hansen RN Unavailable Unavailable Dior Curtis MD Unavailable [phone] No Ref-Primary, Physician Unavailable [phone] No Ref-Primary, Physician Primary Care Provider Reason for Visit * Reason Onset Date Comments MH/CD Inpatient 08/28/2017 Encounter Details Date Type Department Care Team (Late st Contact Info) Description 08/28/[address] [facility] Behavioral Health Intake [address] [place] [address] Generic, Behavioral Intake, MH/CD Inpatient Social [...] file Legal Sex Female 4:40 AM LEAD SOFTWARE ENGINEER Gender Identity Not on file Sexual [...] is a 17 yr old fem in [facility] ED for SI w/ plan to [...] vol / parents will sign in R; concrete engineer reports pt will now contract for safety and family feels comfortable taking her home. SOFTWARE ENGINEER documented in this encounter Plan of Treatment Not on file documented as of this encounter Visit Diagnoses Not on filedocumented in this encounter Additional Health Concerns Assessment Noted Time PHQ-9 Depression Total Score: 5 05/09/20 16 7:16 AM CDT documented as of this encounter Care Teams Clinical Account Specialist Relationship Specialty Start Date End Date No Ref-Primary, Physician PCP - General 08/28/17 08/30/17 Physicians, [facility] [address] [facility] [address] [place] [address] PCP - General 08/31/17 09/07/17 Shana Kam APRN [facility] [address] [address] PCP - Mental Health/Behavioral Medicine Nurse Practitioner 09/01/17 Dior Curtis MD [address], [address] [address] PCP - General Family Practice 09/08/17 12/19/20 No Ref-Primary, Physician PCP - General 12/24/21 Gillian Hansen RN [address], [address] [address] Lead Stencil Sprayer Primary Care - CC 12/03/1705/28 Dior Curtis MD [address], [address] [address] Assigned PCP 12/01/14 09/06/22 No Ref-Primary, Physician 12/24/21 documented as of this encounter
--- OUTSIDE RECORDS SUMMARY | 2025-02-07 08:26 | XMS_ITS | Encounter Summary ---
Author Organization [place] Address [address] [place] [address] Care Team Providers Care Survey Research Center Director Name Role Phone Shana Kam APRN CERTIFIED DRIVER EXAMINER Unavailable [phone] Dior Curtis MD Unavailable [phone] No Ref-Primary, Physician Unavailable [phone] No Ref-Primary, Physician Primary Care Provider Encounter [...] on file Legal Sex Female 4:40 AM HAZARDOUS SUBSTANCES SCIENTIST Gender Identity Not on file Sexual Orientation [...] Depression Total Score: 14 020 2:10 PM HAZARDOUS SUBSTANCES SCIENTIST documented as of this encounter Care Teams Survey Research Center Director Relationship Specialty Start Date End Date Shana Kam APRN CNP PCP - Mental Health/Behavioral Medicine Nurse Practitioner 09/01/17 No Ref-Primary, Physician PCP - General 12/24/21 Dior Curtis MD [address], [address] [place] [address] Assigned PCP 12/01/14 09/06/22 No Ref-Primary, Physician 12/24/21 documented as of this encounter
--- OUTSIDE RECORDS SUMMARY | 2025-02-07 08:26 | XMS_ITS | Encounter Summary ---
Author Organization [place] Address [address] [place] [address] Care Team Providers Care Roofer Applicator Name Role Phone Jess Mcfadden MD Primary Care Provider [phone] Dior Curtis MD Primary Care Provider [phone] No Ref-Primary, Physician [facility] jeremy Shana Kam APRN GASTROENTEROLOGY NURSE PRACTITIONER Unavailable [phone] Dior Curtis MD Primary Care Provider [phone] Gillian Hansen RN Unavailable Unavailable Dior Curtis MD Unavailable [phone] No Ref-Primary, Physician Unavailable [phone] No Ref-Primary, Physician Primary Care Provider Reason for Visit * Reason Onset Date Comments MH/CD Inpatient 11/06/2014 MH Outpatient 11/06/2014 Encounter Details Date Type Department Care Team (Late st Contact Info) Description 11/06/2014 Telephone [facility] Behavioral Health Intake [address] [place] [address] Generic, Behavioral Intake, MH/CD Inpatient; [...] on file Legal Sex Female 4:40 AM WILDLAND FIRE OPERATIONS SPECIALIST Gender Identity Not on file Sexual [...] Aguilar RN sent at 11/17/2014 1:42 PM WILDLAND FIRE OPERATIONS SPECIALIST ----- Regarding: New start 11/21/[address] Ayoub New start 11/21/[address] Ayoub LAND FIRE OPERATIONS SPECIALIST * Telephone Encounter - Mckayla Kinsey - 11/16/2014 1:19 PM CST ----- Message from Kira Aguilar RN sent at 11/16/2014 1:13 PM WILDLAND FIRE OPERATIONS SPECIALIST ----- Regarding: Evaluation scheduled for 10/17/2014 at 1100 Evaluation scheduled for 10/17/2014 @ 1100 LAND FIRE OPERATIONS SPECIALIST * Telephone Encounter - Akash Davidson, RN - 11/06/2014 9:29 PM CST S: Patient presents to [place] ED brought in by father. Bee provides [...] to station 7AE under Marcus Sahni accepts. LAND FIRE OPERATIONS SPECIALIST documented in this encounter Plan of Treatment Not on file documented as of this encounter Visit Diagnoses Not on filedocumented in this encounter Care Teams Roofer Applicator Relationship Specialty Start Date End Date Jess Mcfadden MD [facility] [address] [place] [address] PCP - General 03/25/12 12/28/14 Dior Curtis MD [address] [facility] [address] [place] [address] PCP - General Family Practice 12/29/14 08/27/17 No Ref-Primary, Physician PCP - General 08/28/17 08/30/17 Physicians, [facility] [address] [phone] PCP - General 08/31/17 09/07/17 Shana Kam APRN [facility] [address] [phone] PCP - Mental Health/Behavioral Medicine Nurse Practitioner 09/01/17 Dior Curtis MD [address], [address] [place] [address] PCP - General Family Practice 09/08/17 12/19/20 No Ref-Primary, Physician PCP - General 12/24/21 Gillian Hansen RN [address] [address] Lead Fence Laborer Primary Care - CC 12/03/17 05/28/18 Dior Curtis MD [address], [address] [place] [address] Assigned PCP 12/01/14 09/06/22 No Ref-Primary, Physician 12/24/21 documented as of this encounter
--- OUTSIDE RECORDS SUMMARY | 2025-02-07 08:26 | XMS_ITS | Encounter Summary ---
Author Organization [place] Address [address] [place] [address] Care Team Providers Care Institution Librarian Name Role Phone Jess Mcfadden MD Primary Care Provider [phone] Dior Curtis MD Primary Care Provider [phone] No Ref-Primary, Physician [facility] jeremy Shnaa Kam APRN MEDICAL ONCOLOGY PHYSICIAN Unavailable [phone] Dior Curtis MD Primary Care Provider [phone] Gillian Hansen RN Unavailable Unavailable Dior Curtis MD Unavailable [phone] Ref-Primary, Physician Unavailable [phone] No Ref-Primary, Physician Primary Care Provider Reason for Visit * Reason Onset Date Comments MH/CD Inpatient 10/23/2014 Encounter Details Date Type Department Care Team (Late st Contact Info) Description 10/23/[address] [facility] Behavioral Health Intake [address] [place] [address] Generic, Behavioral Intake, MH/CD Inpatient [...] on file Legal Sex Female 4:40 AM HUMANITIES INSTRUCTOR Gender Identity Not on file Sexual [...] 10/23/2014 4:10 PM CST Per [facility] [place] patient's father requested [facility] remain [facility] [place] NITIES INSTRUCTOR * Telephone Encounter - Zach Rodriguez - 10/23/2014 12:57 PM CST [facility]. B: pt brought to er by [...] depression. Calm, cooperative seeking help. R: tambyraja/[email or web address] NITIES INSTRUCTOR NITIES INSTRUCTOR documented in this encounter Plan of Treatment Not on file documented as of this encounter Visit Diagnoses Not on filedocumented in this encounter Care Teams Institution Librarian Relationship Specialty Start Date End Date Jess Mcfadden MD [facility] [address] [facility] [place] [address] PCP - General 03/25/12 12/28/14 Dior Curtis MD [address], [address] [place], [place] [address] PCP - General Family Practice 12/29/14 08/27/17 No Ref-Primary, Physician PCP - General 08/28/17 08/30/17 Physicians, [place] [address] [facility] [address] [place] [phone] PCP - General 08/31/17 09/07/17 Shana Kam APRN [facility] [address] [facility] [address] [place] [phone] PCP - Mental Health/Behavioral Medicine Nurse Practitioner 09/01/17 Dior Curtis MD [address], [address] [place] [address] PCP - General Family Practice 09/08/17 12/19/20 No Ref-Primary, Physician PCP - General 12/24/21 Gillian Hansen, RN [address] [facility] [address] [place] [phone] Lead Workforce Staffing Advisor Primary Care - CC 12/03/17 05/28/18 Dior Curtis MD [address], [address] [place] [address] Assigned PCP 12/01/14 09/06/22 No Ref-Primary, Physician 12/24/21 documented as of this encounter
--- OUTSIDE RECORDS SUMMARY | 2025-02-07 08:26 | XMS_ITS | Encounter Summary ---
Author Organization [place] Address [address] [place] [address] Care Team Providers Care Mate Fishing Vessel Name Role Phone Jess Mcfadden MD Primary Care Provider [phone] Dior Curtis MD Primary Care Provider [phone] Ref-Primary, Physician [facility] jeremy Shana Kam APRN AIRWORTHINESS INSPECTOR Unavailable [phone] Dior Curtis MD Primary Care Provider [phone] Gillian Hansen RN Unavailable Unavailable Dior Curtis MD Unavailable [phone] Ref-Primary, Physician Unavailable [phone] No Ref-Primary, Physician Primary Care Provider Reason for Visit * Reason Onset Date Comments MH/CD Inpatient 10/28/2014 pt is unable to contract for safety Encounter Details Date Type Department Care Team (Late st Contact Info) Description 10/28/2014 Telephone [facility] [place] Behavioral Health Intake [address] [place] [address] Generic, Behavioral Intake, MH/CD Inpatient [...] on file Legal Sex Female 4:40 AM GOLF PLAYER ASSISTANT Gender Identity Not on file Sexual Orientation [...] the care of Dr Valdez. (Yandy Torres) PLAYER ASSISTANT documented in this encounter Plan of Treatment Not on file documented as of this encounter Visit Diagnoses Not on filedocumented in this encounter Care Teams Mate Fishing Vessel Relationship Specialty Start Date End Date Jess Mcfadden MD [facility] [address] [facility] [place] [address] PCP - General 03/25/12 12/28/14 Dior Curtis MD [address], [address] [place] [address] PCP - General Family Practice 12/29/14 08/27/17 No Ref-Primary, Physician PCP - General 08/28/17 08/30/17 Physicians, [facility] [address] [facility] [address] [place] [phone] PCP - General 08/31/17 09/07/17 Shana Kam APRN AIRWORTHINESS INSPECTOR [address] [facility] [address] [place] [phone] PCP - Mental Health/Behavioral Medicine Nurse Practitioner 09/01/17 Dior Curtis MD [address] , [address] [address] PCP - General Family Practice 09/08/17 12/19/20 No Ref-Primary, Physician PCP - General 12/24/21 Gillian Hansen, RN [address] [address] Lead Kiln Worker Primary Care - CC 12/03/17 05/28/18 Dior Curtis MD [address], [address] [address] Assigned PCP 12/01/14 09/06/22 No Ref-Primary, Physician 12/24/21 documented as of this encounter
--- OUTSIDE RECORDS SUMMARY | 2025-02-07 08:26 | XMS_ITS | Clinical Summary ---
Author Organization [facility] Address [address] [place] [address] Care Team Providers Care Photography Editor Name Role Phone Unavailable Primary Care Provider [...] (05/11/2008): Followed by Zach Wood MD, developmental scientific linguist Other specified pervasive de velopmental disorders, current or active state 04/15/2006 Overview (04/15/2006): Asperger's dx 11/26 Unspecified hearing loss 04/15/2006 Overview (04/15/2006): hearing aids Immunizations Immunization Administration Dates Next Due COVID-19 vaccine (Moderna 100mcg/0.5mL) HERMANN CHAO 02/20/2021,01/23/2021 DTaP 05/21/2012, 6,10/16/2001,02/20,2000,2000,2000 [id number] (Pediarix) 10/16/2001,2000,1 11/20/1999 HPV 2(Cervarix) 04/19/2013,06/26/2012 HPV [...] on file Legal Sex Female 5:42 AM PETROLEUM GEOLOGY FACULTY MEMBER Gender Identity Not on file Sexual Orientation Not on file Obstetrics History Last Filed Vital Signs Vital Sign Reading Time Taken Comments Blood Pressure 108/82 07/26/2024 3:00 PM PETROLEUM GEOLOGY FACULTY MEMBER Pulse 70 07/26/2024 3:00 PM PETROLEUM GEOLOGY FACULTY MEMBER Temperature 36.6 C (97.9 F) 12/24/2012 10:00 AM CDT Respiratory Rate 16 07/26/2024 3:00 PM PETROLEUM GEOLOGY FACULTY MEMBER Oxygen Saturation 97% 07/26/2024 3:00 PM PETROLEUM GEOLOGY FACULTY MEMBER Inhaled Oxygen Concentration - - Weight 125.7 kg (277 lb 3.2 oz) 07/26/2024 3:00 PM PETROLEUM GEOLOGY FACULTY MEMBER Height 163 cm (5' 4.17) 07/26/2024 3:00 PM PETROLEUM GEOLOGY FACULTY MEMBER Body Mass Index 47.33 07/26/2024 3:00 PM PETROLEUM GEOLOGY FACULTY MEMBER Plan of Treatment Health Maintenance Due Date [...] 07/26/2024, 05/21/2012 Medical Devices Implanted Type Area Regional Program Manager Device Identifier Shelf Expiration Date Model / Serial / Lot Tube Vent 1.27mm Inner Collar Button [id number] - [id number] Implanted:Qty: 2 on 12/24/2012 by Rasheed Arguello MD at [facility] Bilateral : Ear [employer] 09/22/2022 [id number] / / [id number] Procedures Procedure Name Priority Date/Time Associated Diagnosis Comments DOPE EDGER THIN PREP PAP - AGES 21-24 (Plan B Funding) Routine 07/26/2024 4:15 PM PETROLEUM GEOLOGY FACULTY MEMBER Screening for cervical cancer GC CHLAMYDIA TRACH PROBE Routine 07/26/2024 3:44 PM PETROLEUM GEOLOGY FACULTY MEMBER Screening for chlamydial disease HIV 1/2 ANTIGEN/ANTIBODY FOURTH GENERATION W/RFL (QUEST) Routine 07/26/2024 3:38 PM PETROLEUM GEOLOGY FACULTY MEMBER Screening for HIV (human immunodeficiency virus) ANTI HCV Routine 07/26/2024 3:38 PM PETROLEUM GEOLOGY FACULTY MEMBER Need for hepatitis C screening test from Last 3 Months or Most Recently Relevant to Health Maintenance Results * DOPE EDGER THIN PREP PAP - AGES 21-24 (Plan B Funding) [[id number]] (07/26/2024 4:15 PM PETROLEUM GEOLOGY FACULTY MEMBER) CLINICAL INFORMATION [facility] Comment:None given LMP [facility] Comment:07/08/24 PREV. PAP [facility] Comment:FIRST, UNKNOWN PREV. BX [facility] Comment:NA SOURCE DOPE EDGER [facility] Comment:Cervix STATEMENT OF ADEQUACY [facility] Comment: Satisfactory for evaluation. Endocervical/transformation zone component absent. INTERPRETATION/RESUL T [facility] Comment: Cytology Results: Negative for intraepithelial lesion or malignancy. COMMENT [facility] [place] Comment: This Pap test has been evaluated with computer assisted technology. SCRIPT GIRL [facility] Comment: RRD, CT(ASCP) CT Screening location: [address] [address] THINPREP TIS PAP ALWAYS MESSAGE [facility] Comment: EXPLANATORY NOTE: The Pap is a [...] clinical information. Other (Cervical) 07/26/2024 4:15 PM PETROLEUM GEOLOGY FACULTY MEMBER 07/27/2024 3:37 AM PETROLEUM GEOLOGY FACULTY MEMBER Narrative [facility] - 07/30/2024 9:28 PM PETROLEUM GEOLOGY FACULTY MEMBER SPLIT 07/26/2024 FROM [id number] us Carmina MOONEY PATHOLOGY/CYTOLOGY Fin al Result [address] [address], [address] [address] * GC CHLAMYDIA TRACH PROBE [[id number]] (07/26/2024 3:44 PM PETROLEUM GEOLOGY FACULTY MEMBER) CHLAMYDIA PROBE Negative 1:23 PM PETROLEUM GEOLOGY FACULTY MEMBER [facility] TRAL LABORATORY N GONORRHOEAE PROBE Negative 07/27/2024 1:23 PM PETROLEUM GEOLOGY FACULTY MEMBER [facility] TRAL LABORATORY Other VAGINAL SWAB / Unknown Non-Blood / Unknown 07/26/2024 3:44 PM PETROLEUM GEOLOGY FACULTY MEMBER 07/26/2024 3:44 PM PETROLEUM GEOLOGY FACULTY MEMBER us Carmina MOONEY MICROBIOLOGY Final Result [facility]ORY [address] [place] [address], * HIV 1/2 ANTIGEN/ANTIBODY FOURTH GENERATION W/RFL (QUEST) (07/26/2024 3:38 PM PETROLEUM GEOLOGY FACULTY MEMBER) HIV AG/AB, 4TH GEN NON-REACT JULI NON-REACT JULI [facility] [employer] Comment: HIV-1 antigen and HIV-1/HIV-2 antibodies were [...] purpose. For additional information please refer to http://[employer]/faq/XYL711 (This link is being provided for informational/ educational purposes only.) The performance of this assay has not been clinically validated in patients less than 2 years old. Blood BLOOD SPECIMEN / Unknown 07/26/2024 3:38 PM PETROLEUM GEOLOGY FACULTY MEMBER 07/26/2024 3:38 PM PETROLEUM GEOLOGY FACULTY MEMBER Narrative [facility] - 07/27/2024 5:30 AM PETROLEUM GEOLOGY FACULTY MEMBER FASTING:NO MULTIPLE TESTING PRIORITIES; ROUTINE TESTING TO FOLLOW. FASTING: NO Carmina MOONEY SEND OUTS Final Result [email or web address] [facility] [address] [place] [address], [facility] [address] [place] [address] * ANTI HCV (07/26/2024 3:38 PM PETROLEUM GEOLOGY FACULTY MEMBER) HEPATITIS C ANTIBODY NON-REACTI VE NON-REACT JULI [facility] Comment: HCV antibody was non-reactive. There is no laboratory evidence of HCV infection. In most cases, no further action is required. However, if recent HCV exposure is suspected, a test for HCV RNA (test code 61029) is suggested. For additional information please refer to http://[employer]/faq/ETM84b3 (This link is being provided for informational/ educational purposes only.) Blood BLOOD SPECIMEN / Unknown 07/26/2024 3:38 PM PETROLEUM GEOLOGY FACULTY MEMBER 07/26/2024 3:38 PM PETROLEUM GEOLOGY FACULTY MEMBER Narrative [facility] - 07/27/2024 5:30 AM PETROLEUM GEOLOGY FACULTY MEMBER FASTING:NO MULTIPLE TESTING PRIORITIES; ROUTINE TESTING TO FOLLOW. FASTING: NO Carmina MOONEY SEND OUTS Final Result [facility] [address] [place] [address], [facility] [address] [place] [address] from Last 3 Months or Most Recently Relevant to Health Maintenance Insurance NON-PA-[facility] Advance Directives * Full Code (Latest Code Status on File) Date Activated Date Inactivated Comments 12/24/2012 9:56 AM 12/24/2012 1:38 PM
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
--- OUTSIDE RECORDS SUMMARY | 2025-02-07 08:26 | XMS_ITS | Clinical Summary ---
Author Organization [place] Address [address] [place] [address] Care Team Providers Care Web Architect Name Role Phone Shana Kam APRN AFTERNOON BABYSITTER Unavailable [phone] No Ref-Primary, Physician Unavailable [phone] No Ref-Primary, Physician Primary Care Provider Allergies [...] CAP (community acquired pneumonia) 05/19/2019 10/27/2019 Health Alf 12/29/2014 03/08/2024 Depression 10/24/2014 05/08/2016 Encounters Date Type Department Care Team Description 12/23/2024 9:58 AM CDT - 12/23/2024 12:47 PM CDT Emergency [facility] Emergency Dept [address] [place] [address] Loli Whitfield MD Hyperemesis arising during Discharge [...] on file Legal Sex Female 4:40 AM 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 Gender Identity Not on file Sexual Orientation [...] 10:54 AM CDT) Hold Specimen [facility] 12/23/2024 12:07 PM CDT [facility] Blood BLOOD SPECIMEN / Unknown Venipuncture / Unknown 12/23/2024 10:54 AM CDT 12/23/2024 11:00 AM CDT us Loli Whitfield MD LAB - BLOOD ORDE CHEO Final Result [facility] [address] Lab (1st floor, no room number) [address] [place] [address] * Extra Red Top Tube (12/23/2024 10:54 AM CDT) Hold Specimen [facility] 12/23/2024 12:07 PM CDT [facility] Blood BLOOD SPECIMEN / Unknown Venipuncture / Unknown 12/23/2024 10:54 AM CDT 12/23/2024 11:00 AM CDT us Loli Whitifeld MD LAB - BLOOD ORDE CHEO Final Result [facility] [address] Lab (1st floor, no room number) [place] [phone] [place] [address] * Extra Blue Top Tube (12/23/2024 10:54 AM CDT) Hold Specimen [facility] 12/23/2024 12:07 PM CDT [facility] Blood BLOOD SPECIMEN / Unknown Venipuncture / Unknown 12/23/2024 10:54 AM CDT 12/23/2024 11:00 AM CDT us Loli Whitfield MD LAB - BLOOD ORDE RABHORTENCIA Final Result [facility] [address] Lab (1st floor, no room number) [place] [address] * (ABNORMAL) Basic metabolic panel (BMP) (12/23/2024 10:54 AM CDT) [facility] Sodium 134(L) 135 - 145 mmol/L [...] LAB - BLOOD HINA GRIDER Final Result [facility] Acute Care Lab [address] [facility] Lab (1st floor, no room number) [place] [address], [facility] * Chlamydia Trach/N. Gonorrhoeae RNA TMA(Pap, Swab,Urine)([facility]) (06/27/2016 1:49 PM CDT) Chlamydia Trachomatis RNA TMA NOT DETECTED NOT DETECTED [facility] Neisseria Gonorrhoeae RNA TMA NOT DETECTED NOT DETECTED [facility] See Note SEE COMMENT [facility] Comment: This test was performed using the APTIMA COMBO2 Assay ([employer] The analytical performance characteristics of this assay, when used to test SurePath specimens have been determined by [employer]. 06/27/2016 1:49 PM CDT 06/28/2016 5:46 AM CDT Narrative Resulting Agency Comment Performing Organization Information: [place] [facility] [address] [place] [address] Taiwo Duran M.D. us Dior Curtis MD LAB - NON-BEAKER NON-BLOOD Fin al Result Performing Organization Address City/State/[facility] Co de Phone Number [facility] [address] [place] [address] from Last 3 Months or Most Recently Relevant to Health Maintenance Advance Directives For more information, please contact: [phone] * Full Code (Latest Code Status on [...] 3:10 AM 11/16/2014 2:59 PM Care Teams Web Architect Relationship Specialty Start Date End Date Shana Kam APRN AFTERNOON BABYSITTER PCP - Mental Health/Behavioral Medicine Nurse Practitioner 09/01/17 No Ref-Primary, Physician PCP - General 12/24/21 No Ref-Primary, Physician 12/24/21
--- OUTSIDE RECORDS SUMMARY | 2025-02-07 08:26 | XMS_ITS | Encounter Summary ---
Author Organization [facility] Address [address] [place] [address] Care Team Providers Care Antisqueak Worker Name Role Phone Jess Mcfadden MD Primary Care Provider [phone] Dior Curtis MD Primary Care Provider [phone] No Ref-Primary, Physician [facility] jeremy Shana Kam APRN BENCH ASSEMBLER BATTERY Unavailable [phone] Dior Curtis MD Primary Care Provider [phone] Gillian Hansen RN Unavailable Unavailable Dior Curtis MD Unavailable [phone] No Ref-Primary, Physician Unavailable [phone] No Ref-Primary, Physician Primary Care Provider Reason for Visit * Reason Onset Date Comments MH/CD Inpatient 10/24/2014 Encounter Details Date Type Department Care Team (Late st Contact Info) Description 10/24/2014 Telephone [facility] Behavioral Health Intake [address] [place] [address] Generic, Behavioral Intake, MH/CD Inpatient [...] on file Legal Sex Female 4:40 AM TELETYPESETTER MONITOR Gender Identity Not on file Sexual Orientation [...] CST S: Received call from Nasir at [facility], # [phone] B: Pt still in their ED, admission to 4A should not have been canceled yesterday but was due to Dad's preference for pt to go to [facility]. Since [facility] doesn't have availability and [...] safety on unit. R: Tambyraja / 4a TYPESETTER MONITOR documented in this encounter Plan of Treatment Not on file documented as of this encounter Visit Diagnoses Not on filedocumented in this encounter Care Teams Antisqueak Worker Relationship Specialty Start Date End Date Jess Mcfadden MD [facility] [address] [place] [address] PCP - General 03/25/12 12/28/14 Dior Curtis MD [address], [address] [place] [address] PCP - General Family Practice 12/29/14 08/27/17 No Ref-Primary, Physician PCP - General 08/28/17 08/30/17 Physicians, [place] [address] [phone] PCP - General 08/31/17 09/07/17 Shana Kam APRN [facility] [address] [phone] PCP - Mental Health/Behavioral Medicine Nurse Practitioner 09/01/17 Dior Curtis MD [address], [address] [address] PCP - General Family Practice 09/08/17 12/19/20 No Ref-Primary, Physician PCP - General 12/24/21 Gillian Hansen, RN [address] [phone] Lead Waterproof Coating Machine Tender Primary Care - CC 12/03/17 05/28/18 Dior Curtis MD [address], [address] [place] [address] Assigned PCP 12/01/14 09/06/22 No Ref-Primary, Physician 12/24/21 documented as of this encounter
--- OUTSIDE RECORDS SUMMARY | 2025-02-07 08:26 | XMS_ITS | Clinical Summary ---
Author Organization [facility] Address [address] [place] [address] Care Team Providers Care Director Mortgage Name Role Phone Jess Mcfadden MD Primary Care Provider [phone] Source Comments You are receiving this document as you are listed as the primary care provider,follow-up provider, or the patient has been referred to you for consultation.This is in compliance with the Medicare andGe[facility] Behavior[facility] Hospitalcaid EHR Incentive Program,which states Providers who transition their patient to another setting of careor provider of care or refers their patient to another provider of care shouldprovide summary care record for each transition of care or referral. [employer] Allergies No known active allergies Medications * [...] 151 kg (333 lb) 10/17/2018 8:11 AM CURING OVEN TENDER Height 162.6 cm (5' 4) 04/19/2017 9:41 [...] Insurance SELF INSURED SELF INSURED Care Teams Director Mortgage Relationship Specialty Start Date End Date Jess Mcfadden MD [address] [place] [address] PCP - General 01/14/14
--- OUTSIDE RECORDS SUMMARY | 2025-02-07 08:26 | XMS_ITS | Encounter Summary ---
Author Organization [facility] Address [address] [place] [address] Care Team Providers Care Federal Judge Name Role Phone Shana Kam APRN SAFETY SPEC Unavailable [phone] Dior Curtis MD Primary Care Provider [phone] Dior Curtis MD Unavailable [phone] No Ref-Primary, Physician Unavailable No Ref-Primary, Physician Primary Care Provider Encounter Details Date Type Department Care Team (Late st Contact Info) Description 05/25/2019 Documentation Only [facility] [address] [place] [address] Rosaline Archer Social History Tobacco [...] on file Legal Sex Female 4:40 AM STAMP CLASSIFIER Gender Identity Not on file Sexual Orientation [...] choice and patient's father is okay with [facility] [employer] [facility] [employer] setting them up. Discussed equipment with patient and informed them that we would be to bedside withoxygen in the next 2 hours. 9:57 AM- Spoke with intensive care ambulance paramedic,Kerline, confirmed we received the order, and provided them with ETA of oxygen. documented in this encounter Plan of Treatment Not on file documented as of this encounter Visit Diagnoses Not on filedocumented in this encounter Additional Health Concerns Assessment Noted Time PHQ-9 Depression Total Score: 4 08/04/20 18 4:22 PM STAMP CLASSIFIER documented as of this encounter Care Teams Federal Judge Relationship Specialty Start Date End Date Shana Kam APRN SAFETY SPEC PCP - Mental Health/Behavioral Medicine Nurse Practitioner 09/01/17 Dior Curtis MD [address] , [facility] [address] [place] [address] PCP - General Family Practice 09/08/17 12/19/20 No Ref-Primary, Physician PCP - General 12/24/21 Dior Curtis MD [address] [address] Assigned PCP 12/01/14 09/06/22 No Ref-Primary, Physician 12/24/21 documented as of this encounter
--- OUTSIDE RECORDS SUMMARY | 2025-02-07 08:26 | XMS_ITS | Encounter Summary ---
Author Organization [place] Address [address] [place] [address] Care Team Providers Care Beef Skinner Name Role Phone Jess Mcfadden MD Primary Care Provider [phone] Dior Curtis MD Primary Care Provider [phone] No Ref-Primary, Physician [facility] jeremy Shana Kam APRN GROCERY PACKER Unavailable [phone] Dior Curtis MD Primary Care Provider [phone] Gillian Hansen RN Unavailable Unavailable Dior Curtis MD Unavailable [phone] Ref-Primary, Physician Unavailable [phone] No Ref-Primary, Physician Primary Care Provider Reason for Visit * Reason Onset Date Comments Outpatient 11/01/2014 php Encounter Details Date Type Department Care Team (Late st Contact Info) Description 11/01/2014 Telephone [facility] Behavioral Health Intake [address] [place] [address] Generic, Behavioral IntakeMD Outpatient (php) [...] on file Legal Sex Female 4:40 AM CHECKER/STOCKER Gender Identity Not on file Sexual Orientation [...] AM CST Dup order written for php. KER/STOCKER * Telephone Encounter - Elsa Perales - 11/01/2014 11:01 AM CST recvd order from dr arshad[facility] for referral to adol php; completed. KER/STOCKER documented in this encounter Plan of Treatment Not on file documented as of this encounter Visit Diagnoses Not on filedocumented in this encounter Care Teams Beef Skinner Relationship Specialty Start Date End Date Jess Mcfadden MD [facility] [address] [facility] [place] [address] PCP - General 03/25/12 12/28/14 Dior Curtis MD [address], [address] [place] [address] PCP - General Family Practice 12/29/14 08/27/17 No Ref-Primary, Physician PCP - General 08/28/17 08/30/17 Physicians, [facility] [address] [place] [facility] [address] [place] [phone] PCP - General 08/31/17 09/07/17 Shana Kam APRN GROCERY PACKER [address] [facility] [address] [place] [phone] PCP - Mental Health/Behavioral Medicine Nurse Practitioner 09/01/17 Dior Curtis MD [address], [address] [address] PCP - General Family Practice 09/08/17 12/19/20 No Ref-Primary, Physician PCP - General 12/24/21 Gillian Hansen, RN [address] [phone] Lead Customer Service Officer Primary Care - CC 12/03/17 05/28/18 Dior Curtis MD [address], [address] [place] [address] Assigned PCP 12/01/14 09/06/22 No Ref-Primary, Physician 12/24/21 documented as of this encounter
== END 2025-02-07 08:43 | disposition home or self-care (01) ==
LOC: ED 08:24
PROVIDERS: Emergency Provider Family Medicine
DX: F41.9 Anxiety disorder, unspecified (principal); Z71.1 Person with feared health complaint in whom no diagnosis is made; Z3A.15 15 weeks gestation of pregnancy
CPT/HCPCS: 99282; 99283

== ENCOUNTER 2025-03-24 08:54 | Outpatient (CLI) | payer BC, SELFPAY | END 2025-03-24 08:55 | disposition home or self-care (01) | PROVIDERS: Visit Provider Obstetrics & Gynecology | DX: Z34.92 Encounter for supervision of normal pregnancy, unspecified, second trimester (principal); Z3A.22 22 weeks gestation of pregnancy; R03.0 Elevated blood-pressure reading, without diagnosis of hypertension | CPT/HCPCS: 82565; 82570; 84156; 84450; 84460; 84520; 84550 ==

== ENCOUNTER 2025-04-27 12:00 | Outpatient (CLI) | payer BC, SELFPAY | END 2025-04-27 12:01 | disposition home or self-care (01) | LOC: NFLDREF 05-02 14:36 | PROVIDERS: Visit Provider Obstetrics & Gynecology | DX: O09.93 Supervision of high risk pregnancy, unspecified, third trimester (principal); R03.0 Elevated blood-pressure reading, without diagnosis of hypertension; Z3A.28 28 weeks gestation of pregnancy | CPT/HCPCS: 82570; 84156 ==

== ENCOUNTER 2025-05-10 09:01 | Outpatient (CLI) | payer BC, SELFPAY ==
--- NOTE | 2025-05-10 09:15 | CRLHL7_ITS ---
For Patients: As a result of the Century Cures Act, medical imaging exams and procedure reports are released immediately into your electronic medical record. You may view this report before your referring provider. If you have questions, please contact your health care provider. OB ULTRASOUND FOLLOW-UP/LIMITED, 05/10/2024 CLINICAL HISTORY: BMI >45. COMPARISON: 03/29/2025, 03/07/2025, 12/15/2024. TECHNIQUE: Multiple transabdominal grayscale, color and M-mode Doppler images obtained. FINDINGS: LE by LMP: 07/28/2025. GA: 28 weeks 5 days. Cervix: Not visualized. Positioning: Vertex. Amniotic Fluid: 4.6 cm SDP. Placenta: Technique: TA. Placenta Position: Anterior. Dopplers: Heart Rate: 139 bpm. BIOMETRY: BPD: 7.2 cm, 29 weeks 0 days. 46% HC: 26.3 cm, 28 weeks 5 days. 17% AC: 24.3 cm, 28 weeks 4 days. 38% FL: 5.6 cm, 29 weeks 3 days. 57% EFW: 1301 grams, 2 lb 14 oz. Age by this US: 29 weeks 0 days. LE by this US: 07/26/2025. Percentile by LE: 43% IMPRESSION: Estimated weight 43rd percentile. Raad Benavides M.D. Body/Diagnostic Radiologist [email or web address] Transcribed: 4:00 pm DW/Dictated by: Raad Benavides MD @ 05/11/2025 3:51:00 PM (Electronically Signed)
== END 2025-05-10 09:02 | disposition home or self-care (01) ==
LOC: US 09:02
PROVIDERS: Visit Provider Obstetrics & Gynecology
DX: O99.213 Obesity complicating pregnancy, third trimester (principal); Z68.42 Body mass index [BMI] 45.0-49.9, adult; Z3A.28 28 weeks gestation of pregnancy
CPT/HCPCS: 76816

== ENCOUNTER 2025-05-24 08:26 | Outpatient (CLI) | payer BC, SELFPAY | END 2025-05-24 08:27 | disposition home or self-care (01) | LOC: NFLDREF 05-25 08:44 | PROVIDERS: Visit Provider Obstetrics & Gynecology | DX: Z34.03 Encounter for supervision of normal first pregnancy, third trimester (principal) | CPT/HCPCS: 82951; 82952 ==

== ENCOUNTER 2025-06-21 08:19 | Outpatient (CLI) | payer BC, SELFPAY ==
--- NOTE | 2025-06-21 08:15 | CRLHL7_ITS ---
For Patients: As a result of the Cures Act, medical imaging exams and procedure reports are released immediately into your electronic medical record. You may view this report before your referring provider. If you have questions, please contact your health care provider. OBSTETRICAL ULTRASOUND ??? FOLLOW-UP WITH BIOPHYSICAL PROFILE, 06/21/2025 INDICATION: BMI. CLINICAL HISTORY: LE by LMP: 07/28/2025 Gestational Age: 34 weeks 5 days COMPARISON: 05/10/2025, 03/29/2025, 03/07/2025. TECHNIQUE: Real-time angeles-scale transabdominal imaging of the fetus was performed. FINDINGS: Fetus: Single Cervix: Not visualized positioning: Vertex Amniotic Fluid: 3.8 cm SDP BIOPHYSICAL PROFILE: Gross body movements: 2 tone: 2 Respiratory activity: 2 Amniotic fluid SDP: 2 Total score: 8 Placenta technique: Transabdominal Placenta position: Anterior heart rate: 141 bpm BIOMETRY: BPD: 8.6 cm, 34 weeks 6 days, 54% HC: 31.1 cm, 34 weeks 6 days, 19% AC: 30.0 cm, 34 weeks 0 days, 33% FL: 6.7 cm, 34 weeks 3 days, 35% FL/AC Ratio: 22.34% HC/AC ratio: 1.04 EFW: 2390 grams; 5 lbs. 4 oz. age by this ultrasound: 34 weeks 4 days LE by this ultrasound: 07/29/2025 Percentile by LE: 33% IMPRESSION: 1. Normal biophysical profile score of 8/8. 2. Sonographic gestational age is 34 weeks 4 days and sonographic due date is 07/29/2025. Good correlation with dates. Normal interval growth. 3. Estimated weight is 33rd percentile. Abdominal circumference is 33rd percentile. FRENCH CÁRDENAS M.D. Diagnostic Radiologist [email or web address] Transcribed: 10:[address]/Dictated by: French Cárdenas MD @ 06/21/2025 9:59:00 AM (Electronically Signed)
== END 2025-06-21 08:20 | disposition home or self-care (01) ==
LOC: US 08:20
PROVIDERS: Visit Provider Obstetrics & Gynecology
DX: O99.213 Obesity complicating pregnancy, third trimester (principal); Z68.42 Body mass index [BMI] 45.0-49.9, adult; Z3A.34 34 weeks gestation of pregnancy
CPT/HCPCS: 76816; 76819

== ENCOUNTER 2025-06-28 09:20 | Outpatient (CLI) | payer BC, SELFPAY ==
--- NOTE | 2025-06-28 09:15 | CRLHL7_ITS ---
For Patients: As a result of the Cures Act, medical imaging exams and procedure reports are released immediately into your electronic medical record. You may view this report before your referring provider. If you have questions, please contact your health care provider. OB ULTRASOUND LE by LMP: 07/28/2025. GA: 35 w, 5 d. Single. Comparison: Ultrasound 06/21/2025, 05/10/2025, 03/29/2025, 03/07/2025. INDICATION: BMI. TECHNIQUE: Real time grayscale imaging of the fetus was performed. Transabdominal. CERVIX: Not visualized. POSITIONING: Vertex. AMNIOTIC FLUID: 6.7 cm. SDP (N: greater than 2 x 1 cm) BIOPHYSICAL PROFILE: 2: Gross body movements 2: tone 2: Respiratory activity 2: Amniotic fluid SDP (N: greater than 2 x 1 cm) 04/29: Total score PLACENTA: Technique: Transabdominal. PLACENTA POSITION: Anterior. DOPPLER: heart rate: 130 bpm. French Madison M.D. Diagnostic Radiologist [email or web address] BOGDAN/angela miller/Dictated by: French Madison MD @ 06/28/2025 10:52:00 AM (Electronically Signed)
== END 2025-06-28 09:21 | disposition home or self-care (01) ==
PROVIDERS: Visit Provider Obstetrics & Gynecology
DX: O99.213 Obesity complicating pregnancy, third trimester (principal); Z68.42 Body mass index [BMI] 45.0-49.9, adult; Z3A.35 35 weeks gestation of pregnancy
CPT/HCPCS: 76819; 87081; 87653

== ENCOUNTER 2025-07-05 09:10 | Outpatient (CLI) | payer BC, SELFPAY ==
--- NOTE | 2025-07-05 09:15 | CRLHL7_ITS ---
For Patients: As a result of the Century Cures Act, medical imaging exams and procedure reports are released immediately into your electronic medical record. You may view this report before your referring provider. If you have questions, please contact your health care provider. Indication: Obesity in with BMI <45. LE: 07/28/2025. Technique: Real-time sonographic images of the pelvis were obtained transabdominally using grayscale, color, and Doppler imaging. Comparison: 06/28/2025. Findings: A single intrauterine is present in cephalic position. Cardiac activity in the fetus is demonstrated at 146 BPM. Placenta: Anterior. No previa or abruption. Amniotic Fluid: Single deepest pocket measures 4.2 centimeter. Biophysical profile: Breathin/2 Movement: 2/2 Tone: 2/2 Fluid volume: 2/2 Total: 6/8 Impression: 1. Single living intrauterine gestation in cephalic presentation, with heartrate 146 BPM. 2. Anterior placenta without previa or abruption. 3. Amniotic fluid single deepest pocket measuring 4.2 centimeter. 4. BPP 6/8, 0/2 for respiratory activity. Dictated by Jason Stinson MD @ 07/05/2025 10:22:02 AM (Electronically Signed)
== END 2025-07-05 09:11 | disposition home or self-care (01) ==
LOC: US 09:10
PROVIDERS: Visit Provider Obstetrics & Gynecology
DX: O99.210 Obesity complicating pregnancy, unspecified trimester (principal); Z68.42 Body mass index [BMI] 45.0-49.9, adult
CPT/HCPCS: 76819

== ENCOUNTER 2025-07-12 09:16 | Outpatient (CLI) | payer BC, SELFPAY ==
--- NOTE | 2025-07-12 09:15 | CRLHL7_ITS ---
For Patients: As a result of the Cures Act, medical imaging exams and procedure reports are released immediately into your electronic medical record. You may view this report before your referring provider. If you have questions, please contact your health care provider. OB ULTRASOUND LE by LMP: 07/28/2025. GA: 37 w, 5 d. Single. Comparison: Ultrasound 06/21/2025, 06/28/2025, 07/05/2025. INDICATION: BMI >45. TECHNIQUE: Real time grayscale imaging of the fetus was performed. Transabdominal. CERVIX: Not visualized. POSITIONING: Vertex. AMNIOTIC FLUID: 5.1 cm. SDP (N: greater than 2 x 1 cm) BIOPHYSICAL PROFILE: 2: Gross body movements 2: tone 2: Respiratory activity 2: Amniotic fluid SDP (N: greater than 2 x 1 cm) 8/8: Total score PLACENTA: Technique: Transabdominal. PLACENTA POSITION: Anterior, right wall. DOPPLER: heart rate: 133 bpm. IMPRESSION: Normal biophysical profile score 8/8. French Madison M.D. Diagnostic Radiologist [email or web address] BOGDAN/angela miller/Dictated by: French Madison MD @ 07/12/2025 11:36:00 AM (Electronically Signed)
== END 2025-07-12 09:17 | disposition home or self-care (01) ==
LOC: US 09:17
PROVIDERS: Visit Provider Obstetrics & Gynecology
DX: O99.213 Obesity complicating pregnancy, third trimester (principal); Z68.42 Body mass index [BMI] 45.0-49.9, adult; Z3A.37 37 weeks gestation of pregnancy
CPT/HCPCS: 76819

== ENCOUNTER 2025-07-19 09:08 | Outpatient (CLI) | payer BC, SELFPAY ==
--- NOTE | 2025-07-19 09:15 | CRLHL7_ITS ---
For Patients: As a result of the Century Cures Act, medical imaging exams and procedure reports are released immediately into your electronic medical record. You may view this report before your referring provider. If you have questions, please contact your health care provider. OB ULTRASOUND LE by LMP: 07/28/2025. GA: 38 w, 5 d. Single. Comparison: 07/12/2025, 07/05/2025, 06/28/2025. INDICATION: BMI greater than 45. TECHNIQUE: Real time grayscale imaging of the fetus was performed. Transabdominal. CERVIX: Not visualized. POSITIONING: Vertex. AMNIOTIC FLUID: 4.8 cm. SDP (N: greater than 2 x 1 cm) BIOPHYSICAL PROFILE: 2: Gross body movements 2: tone 0: Respiratory activity 2: Amniotic fluid SDP (N: greater than 2 x 1 cm) 6/8: Total score PLACENTA: Technique: Transabdominal. PLACENTA POSITION: Anterior. DOPPLER: heart rate: 146 bpm. BIOMETRY: BPD: 9.4 cm. 38 w, 0 d, 62.6%. HC: 33.6 cm. 38 w, 4 d, 30.5%. AC: 35.6 cm. 39 w, 3 d, 87.0%. FL: 7.5 cm. 38 w, 2 d, 45.4%. FL/AC ratio: 21.1%. HC/AC ratio: 0.9. EFW: 3638g. Weight: 8 lbs., 0 oz. age by this US: 38 w, 4 d. LE by this US: 07/29/2025. Percentile by LE: 72.7%. IMPRESSION: 1. Sonographic gestational age 38 weeks 4 days and sonographic due date 07/29/2025. Good correlation with dates. Normal interval growth. 2. Estimated weight 73rd percentile. Abdominal circumference 87th percentile. 3. Biophysical profile score 6/8 with absent respiratory activity. French Madison M.D. Diagnostic Radiologist [email or web address] BOGDAN/angela miller/Dictated by: French Madison MD @ 07/19/2025 10:44:00 AM (Electronically Signed)
== END 2025-07-19 09:09 | disposition home or self-care (01) ==
LOC: US 09:09
PROVIDERS: Visit Provider Obstetrics & Gynecology
DX: O99.213 Obesity complicating pregnancy, third trimester (principal); Z68.42 Body mass index [BMI] 45.0-49.9, adult; Z3A.38 38 weeks gestation of pregnancy
CPT/HCPCS: 76816; 76819

== ENCOUNTER 2025-07-21 20:11 | Outpatient (CLI) | payer BC, SELFPAY ==
[2025-07-21 20:23] VITALS: BP 115/68; PULSE 107; RESP 18; TEMP 36.9
[2025-07-21 20:41] LABS: Amnisure Rom* Negative
--- NOTE | 2025-07-21 21:07 | PC.OBNST ---
NST Note NST Note Start: 07/21/25 20:13 Freq: ONCE Status: Active Protocol: Document 07/21/25 21:00 SJ (Rec: 07/21/25 21:07 SJ Desktop) NST Note 1 Para (# of births) 0 EDC 07/28/25 Gestational Age In 39 Weeks & 0 Days Weeks & Days High Risk Factors High Blood Pressure - Preexisting Patient Presented Leaking fluid with Complaint(s) of Reactive Yes Appropriate for Yes Gestational Age RN Arie RN Date 07/21/25 Reactive Yes Appropriate for Yes Gestational Age RN Alea RN Date 07/21/25 OB NST charge Yes Complete NST Note Yes via Write Note The provider's electronic signature indicates the NST is reactive/appropriate for gestational age. *Note to provider: If an addendum is required, open the patient's chart and click on the note under the Nurse/Allied Health tab.
== END 2025-07-21 21:04 | disposition home or self-care (01) ==
LOC: OB OUT 20:11 → OB 20:11
PROVIDERS: Visit Provider Obstetrics & Gynecology
DX: O47.1 False labor at or after 37 completed weeks of gestation (principal); O10.913 Unspecified pre-existing hypertension complicating pregnancy, third trimester; Z3A.39 39 weeks gestation of pregnancy
CPT/HCPCS: 59025; 84112; G0463

== ENCOUNTER 2025-07-26 16:50 | Inpatient (IN) | payer BC, SELFPAY ==
[2025-07-26] VITALS (17 sets, daily range): BP systolic 124–158; BP diastolic 67–92; PULSE 90–111; RESP 18–25; TEMP 36.6–36.9; O2SAT 96–97; BMI 52.5
--- NOTE | 2025-07-26 17:17 | P.LDBA_ITS ---
Subjective History of Present Illness Date Seen: 07/26/25 Narrative: Patient is being admitted to Labor and Delivery for IOL. She is a 25 year old at 39 weeks, 5 days gestation. Her full history and physical was dictated by Dr. Birch on 07/05/25. Please see this for details. Specific Issues/Plans G1 P 0 Partner: Zack - getting this summer!? H&P completed by [facility] on 07/05/25 ? CHTN - no meds * Baseline PreE labs: Plt 288, Cr 0.5, AST 24, ALT 34, P/C 0.15 * 24 hour urine: 286 mg of protein, but not completed until 04/28 = 27 weeks * Growth scans Q4 weeks starting at 28 weeks; see below * Delivery recommended: 38 0/7-39 6/7 weeks. * IOL with ripening on 07/27 (ripening 07/26) at 39w6d GA - latest patient should go. Elevated 1hrGTT 3hrGTT ordered: 86/157/132/86 Normal Pre- BMI 46 * 20-week level II detailed US with [facility]?- * Referral to allergy and immunology specialist?-ordered with consent, has not returned calls to schedule. No showed visit. * Referral to anesthesia?-ordered with consent * Weekly testing starting at 34 weeks? * Growth US at 28 and 34 weeks? * Delivery recommended: 39 0/7-39 6/7 weeks.? Marijuana use in - once every 1-2 weeks at 17w5d. stopped using around 24 weeks * Growth US at 28 and 34 weeks? - needs testing sheet pending MFM consult Sury is a carrier for SMA. Low risk result * Recommend her partner have his carrier status tested. If he is also a carrier genetic counseling recommended. Declines testing with this . Anxiety - Sent Rx for lexapro at [facility], never started as mood improved Vaping-quit with knowledge of , has lots of desire to do again. Quit Plan info given for therapy and encouragement given. # Non-immune to varicella and rubella. Vaccinate ? Imaging:? 1st trimester: 12/15/2024-SLIUP with small ROSE, consistent with dating. LV2 Anatomy scan: 03/07/25 - EFW 88th percentile, AC 85th percentile. MVP 4.4 cm. Anterior placenta, no previa, greater than 2 cm from the internal os. Three- vessel cord. Normal anatomy. Some views were suboptimal. Follow-up in 3 weeks to reassess anatomy that was suboptimally seen. Thereafter recommend growth ultrasound at 28 and 34 weeks gestation and weekly surveillance at 34 weeks gestation for BMI. Recommend delivery at 39th week of gestation 03/29: Completion of level 2. EFW 82%, AC 46%, normal completed anatomy assessment. 05/10/25: Vertex presentation, single deepest pocket of amniotic fluid 4.6 cm, BPD: 46 percentile, HC: 17 percentile, AC: 38 percentile, FL: 57th percentile. EFW: 43 percentile. Normal growth. 06/21/25: vertex presentation, SDP 3.8cm, EFW 33%. BPP 04/29 07/19: Cephalic, SDP 4.8, EFW 3638 g = 72.7%, AC 87%, all other growth parameters within normal ranges ? COVID: 06/21/25; was accidently given previous season vaccine; reviewed and can offer most recent version in 8 weeks. Flu:?06/21/25?? Tdap:05/24/25? RSV: 06/07/25 32wk Mental Health:?06/07/25 34wk hgb: 13??? Pap: last year at [facility], normal per patient. ? ? OB - Problem Based A/P Additional Plan (1) BMI 50.0-59.9, adult: Status: Acute (2) Supervision of high risk due to social problems in third trimester: Status: Acute Plan Using aseptic technique, Cook catheter placed through the cervix into the lower uterine segment. Intrauterine and intravaginal balloons each filled with 50 mL of saline. Begin low-dose Pitocin for cervical ripening at 9:00 p.m.. Continues monitoring while using Pitocin. Delivery/Labor/Induction Plan Induction method: Intracervical balloon catheter OB Exam Physical Exam Vital signs: Temp Pulse Resp BP Pulse Ox 98.5 F 108 H 25 H 126/75 97 07/26/25 16:54 07/26/25 16:56 07/26/25 16:54 07/26/25 16:56 07/26/25 16:54 Narrative: Physical exam: General: No acute distress Psych: Alert and oriented x3, full affect HEENT: Normocephalic, atraumatic Heart: Regular rate and rhythm, no murmur rub or gallop Lungs: Clear to auscultation bilaterally Abdomen: Soft, nontender, gravid Lower extremities: No edema or erythema Pelvic exam: / -3 / midposition / soft, vertex tracing: Baseline 140, accelerations to 160, no decelerations, moderate variability No contractions registering on toco
[2025-07-26 18:23] LABS: Hematocrit* 40.0 % (33.0-51.0); Hemoglobin* 13.1 gm/dL (12.0-16.0); Mean Corpuscular HGB Conc 33 gm/dL (32-36); Mean Corpuscular Hemoglobin 29 pg (26-34); Mean Corpuscular Volume 88 fL (80-100); Red Blood Count* 4.57 m/uL (4.00-5.20); White Blood Count* 11.84 K/uL (4.50-11.00)
[2025-07-26 18:43] LABS: Alanine Aminotransferase* 19 U/L (4-35); Aspartate Amino Transferase* 26 U/L (12-35); Blood Urea Nitrogen* 14 mg/dL (5-24); Creatinine* 0.5 mg/dL (0.5-1.5); Est. Creatinine Clearance* 148.53; Estimated Glomerular Filt Rate 133 ml/min
[2025-07-26 18:45] LABS: Slide Review Reflex No
[2025-07-26 19:27] LABS: Protein Creatinine Ratio Urine 0.16 (0-0.19)
[2025-07-26] MEDS: ACETAMINOPHEN 500 MG TABLET 1000 MG PO (20:24)
[2025-07-26] MEDS: LACTATED RINGERS 1000 ML 1,000 ML 124 ML IV (21:04)
[2025-07-26] MEDS: OXYTOCIN 30 unit/500 ML in NS 30 UNIT/500 ML BAG IVPB (21:07)
[2025-07-26 21:56] LABS: Cannabinoid Screen Urine Negative (Negative); Methamphetamines Screen Urine Negative (Negative); Tricyclic Antidepressant Urine Negative (Negative)
[2025-07-27] VITALS (97 sets, daily range): BP systolic 79–142; BP diastolic 39–92; PULSE 73–234; RESP 16; TEMP 36.6–37.2; O2SAT 80–100
[2025-07-27] MEDS: LACTATED RINGERS 1000 ML 1,000 ML 122 ML IV (04:35)
--- NOTE | 2025-07-27 07:58 | P.OBPN_ITS ---
Subjective Time Seen by Provider: 07:55 Date Seen: 07/27/25 Narrative: Sury is comfortable this morning. The Cook catheter fell out at 0115, and pitocin infusion rate is currently at 12 mu/min. She is unaware of contractions. Maternal pulse rate is elevated, though she denies feeling palpitations, chest pain, shortness of breath or fatigue. Objective Vital Signs: Last Vital Signs Temp 98.4 F 07/27/25 07:44 Pulse 81 07/27/25 07:00 Resp 18 07/26/25 21:11 BP 125/77 07/27/25 07:00 Pulse Ox 97 07/26/25 21:59 Pelvic Exam Dilation (cm): 4-5 cm Effacement (%): 70 Station: -2, ballotable Comments: mid position, soft Contractions Monitor mode: External Contraction Frequency: 2-5 minutes Contraction pattern: Irregular Contraction intensity: Mild Pitocin Rate (mU/min): 12 Assessment Assessment: induction ongoing Station: -2 Status: Category l Heart Rate Baseline: 130 Assisted Variability: Moderate (6-25) Monitor Accelerations: Present Monitor Decelerations: Variable Plan Plan: Continue pitocin infusion, increasing per protocol. Continuous monitoring. PO hydration. Pain control options reviewed, patient thinking about nitrous oxide and epidural for active labor pain. Reassess for amniotomy with next check.
[2025-07-27] MEDS: LACTATED RINGERS 1000 ML 1,000 ML 1125 ML IV ×3 (12:19→19:58)
[2025-07-27] MEDS: PHENYLEPHRINE 100 MCG/ML SYRINGE IVP ×7 (13:06→18:35)
[2025-07-27] MEDS: ROPIVACAINE 0.2% 100 ml 100 ML 12 MG EPIDURAL (13:07)
--- NOTE | 2025-07-27 13:15 | PM.ANBPRC ---
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 E cigarette use Marijuana use What is your current living situation?: I presently have a place to live Problems where you live: no known problems In the past 12 months, utilities in danger of being shut off: no In past 12 months, lack of transportation kept you from medical appts, meetings, work, or getting things needed for daily living: no In the past 12 mos, have been you worried that your food would run out before you had money to buy more?: never true In the past 12 mos, the food you bought just didn't last and you didn't have money to buy more?: never true Smoking Status: Former smoker Do you use any of these nicotine containing products: None How often do you have a drink containing alcohol: never AUDIT-C Alcohol total score: 0 Non-prescribed substance use: denies use How often does anyone, including family, friends and others, physically hurt you: never How often does anyone, including family, friends and others, insult or talk down to you: never How often does anyone, including family, friends and others, threaten you with harm: never How often does anyone, including family, friends and others, scream or curse at you: never Meds Home Medications and Allergies Home Medications ?Medication ?Instructions ?Recorded ?Confirmed ?Type vits no.126-ferrous fum 1 tab PO QDAY 12/08/24 07/26/25 History 28 mg iron-folic acid 800 mcg tablet (Classic ) calcium carbonate (Tums) 200 mg PO BID 05/24/25 07/26/25 History Allergies Allergy/AdvReac Type Severity Reaction Status Date / Time No Known Drug Allergies Allergy Verified 07/26/25 16:55 Results Labs Labs: Laboratory Results - last 24 hr 07/26/25 07/26/25 07/26/25 18:13 18:44 21:13 WBC 11.84 H RBC 4.57 Hgb 13.1 Hct 40.0 MCV 88 MCH 29 MCHC 33 Plt Count 281 BUN 14 Creatinine 0.5 Estimated Creat Clear 148.53 Estimated GFR 133 AST 26 ALT 19 Urine Creatinine 108.6 Protein/Creatinin Ratio 0.16 Urine Total Protein 17 Urine Opiates Screen Negative Ur Oxycodone Screen Negative Urine Methadone Screen Negative Ur Barbiturates Screen Negative U Tricyclic Antidepress Negative Ur Phencyclidine Scrn Negative Ur Amphetamines Screen Negative U Methamphetamines Scrn Negative U Benzodiazepines Scrn Negative Urine Cocaine Screen Negative U Marijuana (THC) Screen Negative Ur Drug Screen Comment See Note Blood Type O Positive Antibody Screen NEGATIVE Vital Signs Vital Signs: Last Vital Signs Temp 98.2 F 07/27/25 11:04 Pulse 93 07/27/25 13:13 Resp 18 07/26/25 21:11 BP 95/54 L 07/27/25 13:13 Pulse Ox 98 07/27/25 13:11 Weight: 138.799 kg Height: 162.56 cm Anesthesia Procedures Epidural Insertion Patient Location: OB Start Time: 12:30 Stop Time: 13:15 Start Date: 07/27/25 Stop Date: 07/27/25 Reason for Block: procedure for pain Patient Position: sitting Performed By: Asmita Mansfield Preanesthetic Checklist: IV checked, risks and benefits discussed, monitors and equipment checked, pre-op evaluation, timeout performed and anesthesia consent Prep: chlorhexidine gluconate Monitoring: blood pressure monitoring, continuous pulse oximetry and heart rate Approach: midline Vertebral Space: lumbar (1-5) Epidural Technique: REJI saline Needle Type: Tuohy needle Injection Technique: continuous catheter Needle gauge: 17 Needle Length (cm): 10 cm Needle Insertion Depth (cm): 9 Catheter Gauge: 19 Catheter Type: multi-orifice Catheter at skin depth (cm): 15 Test Dose Result: negative and lidocaine 1.5% with epinephrine 1 to 200,000
--- NOTE | 2025-07-27 13:20 | PM.OBPNL ---
Subjective Time Seen by Provider: 13:20 Date Seen: 07/27/25 Narrative: Comfortable with epidural. RN notes some difficulty tracing contractions and FHR with external Novii. Objective Vital Signs: Last Vital Signs Temp 98.2 F 07/27/25 11:04 Pulse 93 07/27/25 13:19 Resp 18 07/26/25 21:11 BP 89/56 L 07/27/25 13:19 Pulse Ox 99 07/27/25 13:16 Pelvic Exam Dilation (cm): 7 cm Effacement (%): 90 Station: -1 Contractions Monitor mode: External Contraction Frequency: 1-2 minutes Contraction pattern: Regular Contraction intensity: Strong/Firm Pitocin Rate (mU/min): 21 Assessment Station: -2 Amniotic Membrane Status: AROM (Amniotomy performed, light MEC noted) Status: Category ll Heart Rate Baseline: 130 Natural Resource Manager Variability: Moderate (6-25) Monitor Accelerations: Present Monitor Decelerations: Variable Tracing Comments: Decelerations noted with maternal hypotension since epidural. Ephedrine administered, patient repositioned. Plan Plan: Decrease pitocin infusion to 16 mu/min. Treat hypotension. Amniotomy performed. Anticipate vaginal delivery.
[2025-07-27] MEDS: ePHEDrine sulfate 5 MG/ML inj 10 MG IVP ×2 (13:35→14:45)
[2025-07-27] MEDS: LACTATED RINGERS 1000 ML 1,000 ML 125 ML IV (13:44)
--- NOTE | 2025-07-27 18:54 | PM.OBPNL ---
Subjective Time Seen by Provider: 18:30 Date Seen: 07/27/25 Narrative: Patient complains of feeling like she has to poop. Objective Vital Signs: Last Vital Signs Temp 98 F 07/27/25 16:59 Pulse 114 H 07/27/25 18:45 Resp 18 07/26/25 21:11 BP 115/64 07/27/25 18:45 Pulse Ox 90 07/27/25 13:55 Pelvic Exam Dilation (cm): 8.5 cm Effacement (%): 90 Station: -1 Contractions Monitor mode: Internal Contraction pattern: Regular Contraction intensity: Strong/Firm Pitocin Rate (mU/min): 10 Assessment Station: -1 Amniotic Membrane Status: AROM (Amniotomy performed, light MEC noted) Status: Category ll Heart Rate Baseline: 135 Cash Posting Specialist Variability: Moderate (6-25) Monitor Accelerations: Absent Monitor Decelerations: Late Plan Plan: Maternal repositioning to optimize uterine perfusion unsuccessful in improving status. Cervix has been 8.5 cm dilated for approximately 2-1/2 hours with no further dilation or descent of the vertex. Contractions strength, as documented by IUPC, has not been adequate, and due to status, Pitocin infusion cannot be increased. At this point, I would recommend discontinuing Pitocin infusion and considering delivery. Informed consent was obtained for primary low transverse section. Risks reviewed included, but are not limited to, bleeding, blood transfusion, infection, injury to other organs or infants, postoperative pain, and extended inpatient hospital stay. OR staff and anesthesia informed.
[2025-07-27 19:28] LABS: Hematocrit* 40.8 % (33.0-51.0); Hemoglobin* 13.1 gm/dL (12.0-16.0); Immature Granulocytes Pct Auto 0.4 %; Mean Corpuscular HGB Conc 32 gm/dL (32-36); Mean Corpuscular Hemoglobin 29 pg (26-34); Mean Corpuscular Volume 89 fL (80-100); RDW Coefficient of Variation % 15.8 % (11.5-15.5); Red Blood Count* 4.59 m/uL (4.00-5.20); White Blood Count* 17.88 K/uL (4.50-11.00)
[2025-07-27] MEDS: AZITHROMYCIN 500 MG in 0.9 % SODIUM CHLORIDE 250 ml 250 ML 255 MG IVPB (19:29)
[2025-07-27 19:44] LABS: Immature Granulocytes Abs Auto 0.10 K/uL (0.00-0.30)
[2025-07-27 19:45] LABS: Lymphocytes Absolute Auto 1.50 K/uL (0.90-2.90); Slide Review Reflex No
[2025-07-27] MEDS: TRANEXAMIC ACID 100 MG/ML INJ 1000 MG IV (20:59)
--- NOTE | 2025-07-27 21:39 | P.ANES_ITS ---
Anesthesia Charges Start Date/Time Anesthesia Start Date: 07/27/25 Anesthesia Start Time: 20:23 Stop Date/Time Anesthesia Stop Date: 07/27/25 Anesthesia Stop Time: 22:18 Coding CPT Codes CPT Codes: ANES/ANALG CS DELIVER ADD-ON - 78059 ([id number]) P3 - PATIENT W/SEVERE SYS DISEASE, QZ - SUPERVISOR CONTACT AND SERVICE CLERKS SVC W/O TILE INSPECTOR BY
--- NOTE | 2025-07-27 21:39 | W.ANESCHARGE ---
Anesthesia Charges Start Date/Time Anesthesia Start Date: 07/27/25 Anesthesia Start Time: 20:23 Stop Date/Time Anesthesia Stop Date: 07/27/25 Anesthesia Stop Time: 22:18 Coding CPT Codes CPT Codes: ANES/ANALG CS DELIVER ADD-ON - 85117 ([id number]) P3 - PATIENT W/SEVERE SYS DISEASE, QZ - FOOD SERVICE REPRESENTATIVE SVC W/O DYEHOUSE WORKER BY
--- NOTE | 2025-07-27 21:40 | P.NB_ITS ---
Nerve Block Nerve Block Time Seen by Provider: 22:07 Date Seen: 07/27/25 Type of block requested by surgeon for post-operative analgesia: TAP Side: bilateral Time out performed: Yes Verification of patient name: Yes Verification of date of : Yes Site marking: site marked Name of person performing procedure: Micheal Preciado Assistants, if any: Dariana Linares Continuous monitoring Was continuous monitoring of O2 sat, B/P, tariff compiling clerk, recorded every 15 minutes?: Yes Procedure Checklist: sterile prep, needles and gloves Ultrasound guided. Images saved: Yes Medications given in 5ml increments after negative aspiration: Marcaine %: 0.25 mL: 30 Needle gauge: 20 and Exparel mL: 10 Needle gauge: 20 Patient tolerated procedure well: Yes Additional comments: Injected in 5 mL increments after negative aspiration Block Charges Block Charge (with Pro Fee): TAP Bilateral Use of Ultrasound Machine for Block: Yes- US Guidance/pain block
--- NOTE | 2025-07-27 21:59 | P.OBPRC_ITS ---
Procedure Date of procedure: 07/27/25 Pre-op diagnosis: 1. 39 6/7 weeks gestation 2. Arrest of dilation and descent 3. intolerance of labor Post-op diagnosis: same Procedure Done: Global Will [facility] bill your pro fee for this procedure?: Yes Blood Loss Measurement Type: QBL (957) Bakri Used: No IV fluids (mL): 900 Urine Output (mL): 800 Surgeon: Noelle Amaro MD Forensics Team Director: Jhoana Marks MD Anesthesia Type: Epidural and TAP Block Findings: Live-born female, cephalic presentation, right occiput posterior position, light meconium-stained fluid, nuchal cord x1. Normal appearing uterus, tubes, and ovaries. Procedure Name: Primary low transverse section Procedure Description: After obtaining informed consent, the patient was taken to the operating room where spinal anesthesia was obtained and found to be adequate. She was prepared and draped in the normal sterile fashion in the dorsal supine position with a leftward tilt. A Pfannenstiel skin incision was made with a scalpel. This incision was carried down to the underlying layer of fascia with the Bovie. The fascia was incised in the midline and the incision extended laterally. The superior and inferior aspects of the fascial incision were grasped with Alejandra clamps, elevated and the underlying rectus muscles dissected off sharply and with electrocautery. The rectus muscles were then in the midline. The Fco O retractor was then placed into the incision. The lower uterine segment was then incised in a transverse fashion with the scalpel. Upon entry into the uterus, meconium-stained amniotic fluid was noted. The uterine incision was extended laterally with blunt finger fractionation. The infant's head was delivered atraumatically, the nuchal cord was reduced over the infant's head, and the remainder of the infant's body was delivered. The nose and mouth were suctioned with the bulb suction. The cord was doubly clamped and cut after 45 second delay, and the was handed off the field to Jean Marie Allison NP for evaluation. The placenta was delivered spontaneously with umbilical cord traction and fundal massage. The uterus was cleared of all clots and debris. There was some brief uterine atony which was treated with in massage, IV Pitocin, and a single dose of IM Hemabate 250 mcg. The uterine incision was reapproximated in a running locking fashion with a 0 chromic suture. A 2nd layer of the same suture was used to imbricate in horizontal fashion. The gutters were irrigated and suctioned. All instruments and retractors were removed. The anterior peritoneum was reapproximated in a running fashion with a 3-0 Vicryl suture for half its length, but could not be completely closed as the patient was experiencing painful sensation when the peritoneum was manipulated. The subfascial tissues were carefully inspected and hemostasis assured. The fascia was reapproximated in a running fashion with a looped 0 Maxon suture. The subcutaneous tissues were copiously irrigated. Hemostasis was assured. The subcutaneous fat layer was reapproximated in two layers with running sutures of 3-0 plain gut. The skin was closed in a subcuticular fashion with 4-0 Vicryl. A silver Mepilex dressing was applied. A TAP was then administered by Anesthesia. The patient tolerated the procedure well. Sponge, lap, needle, and instrument counts were reported as correct x2. The patient was taken to the recovery room, awake, and in stable condition. She did receive 500 mg IV azith romycin and 3 grams of IV Ancef preoperatively. At cord clamp, she received 1000 mg tranexamic acid. Complications: None Pathology: specimen obtained, sent to pathology (Placenta) Surgery Debrief Performed: Yes Condition: stable Disposition: floor
[2025-07-27] MEDS: LOPERAMIDE HCL 2 MG CAPSULE PO ×2 (23:14→23:46)
[2025-07-28] VITALS (10 sets, daily range): BP systolic 109–139; BP diastolic 67–93; PULSE 87–116; RESP 16–20; TEMP 36.3–36.9; O2SAT 96–98
[2025-07-28] MEDS: ENOXAPARIN 40 MG/0.4 ML INJ SUBCUT (05:30)
[2025-07-28 05:49] LABS: Hemoglobin* 13.0 gm/dL (12.0-16.0)
[2025-07-28] MEDS: DOCUSATE SODIUM 100 MG CAPSULE PO (08:00)
[2025-07-28] MEDS: ACETAMINOPHEN 500 MG TABLET 1000 MG PO ×3 (08:00→19:56)
--- NOTE | 2025-07-28 10:21 | PM.OBPNVD1 ---
OB - PN:Subj Subjective Time Seen by Provider: 10: Date Seen: 07/28/25 Interval history: Day 1:? Delivery at 39 and 6/7 weeks.? ?? Complications:? none, up and walking shortly after delivery? Sury feels well.? Her pain is well controlled with current medications.? She has no new complaints.? Urinary output is adequate and she is voiding without difficulty.? Has a good appetite, is tolerating a general diet, is passing flatus, and has not had a bowel movement.? Has moderate amount of rubra lochia.? 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 Has not seen audiology recently, per pt would not qualify for hearing aids covered by her insurance. Patient comments OB post-: no complaints, pain well controlled and tolerating diet [place] feeding status: exclusively OB - PN: Obj Exam Physical Exam: Vital signs: Temp Pulse Resp BP Pulse Ox O2 Del Method 98.0 F 93 19 139/93 H 96 Room Air 07/28/25 07:51 07/28/25 07:51 07/28/25 07:51 07/28/25 07:51 07/28/25 07:51 07/28/25 07:51 Narrative: GENERAL APPEARANCE:? normal affect, alert, no distress; difficulty hearing conversation.? MOOD:? appropriate? CHEST:? clear to auscultation and percussion? HEART:? regular rate and rhythm? BREASTS: soft, nontender, no erythema, nipples intact? ABDOMEN:? soft, non-tender the uterine fundus is firm and is appropriate for the stage of recovery. Incision covered by dressing, which is C/D/I.? PERINEUM:? mild edema of the perineum.? EXTREMITIES:? normal and no edema? OB - PN: Obj Data Labs Labs: Laboratory Results - last 24 hr 07/27/25 07/28/25 19:16 05:36 WBC 17.88 H RBC 4.59 Hgb 13.1 13.0 Hct 40.8 MCV 89 MCH 29 MCHC 32 RDW Coeff of Suman 15.8 H Plt Count 257 Neut % (Auto) 84.3 H Lymph % (Auto) 8.4 L [place] % (Auto) 6.5 Eos % (Auto) 0.3 Baso % (Auto) 0.1 Neut # (Auto) 15.10 H Lymph # (Auto) 1.50 [place] # (Auto) 1.20 H Eos # (Auto) 0.10 Baso # (Auto) 0.00 Abs Immat Gran (auto) 0.10 Imm/Tot Granulo (auto) 0.4 OB - PN: A/P Delivery Assessment and Plan (1) care and examination of lactating mother: Status: Acute Assessment and Plan: 25 year old on day 1.? 1. cares.? 2. Anticipate discharge tomorrow.? (2) Status post delivery: Status: Acute (3) BMI 50.0-59.9, adult: Status: Acute (4) Congenital hearing loss: Problem details: Inherited from her mother, became worse during 2024 . Status: Acute Plan hearing screen is not yet done, pt is aware baby may have some degree of hearing loss. Plan day: 1 Plan: routine care
--- NOTE | 2025-07-28 14:21 | PM.ANPOST ---
Post Anesthesia Note Post Anesthesia Note Patient seen: Inpatient Respiratory Status: adequate Cardiovascular Status: adequate Mental Status: baseline Pain: adequate Temp: baseline Anesthetic awareness: N/A Complications: none Follow care: none
--- NOTE | 2025-07-28 14:34 | PC.SOCIAL ---
Social work note/cps report: boning room worker followed up on the cps report made to [facility] by pt's nurse early this morning. boning room worker faxed over the cps written report to [facility] fax number #[phone] along with mom's urine tox screen from 07/26/25 collected at admission and baby's urine tox screen collected early this morning. boning room worker also sent the pt's medication administration log that shows she was given morphine which is an opiate and phenylephrine which can show up as positive for methamphetamine on a tox screen. Baby's tox screen was positive for opiates and methamphetamine. The pt's(mom's) tox screen was negative for all substances at admission. Pt ended up have a long labor and needed a . boning room worker also talked with an rice field worker at [facility] who is aware the information was being faxed over to them. Social work to follow-up as needed.
[2025-07-29] MEDS: ACETAMINOPHEN 500 MG TABLET 1000 MG PO ×3 (01:55→20:29)
[2025-07-29] MEDS: SIMETHICONE 80 MG TAB.CHEW PO ×2 (02:06→06:25)
[2025-07-29 04:42] VITALS: BP 107/76; PULSE 90; RESP 20; TEMP 36.6; O2SAT 97
[2025-07-29] MEDS: ENOXAPARIN 40 MG/0.4 ML INJ SUBCUT (06:26)
--- NOTE | 2025-07-29 08:05 | P.OBPN_ITS ---
OB - PN:Subj Subjective Date Seen: 07/29/25 Patient comments OB post-: no complaints, pain well controlled, tolerating diet and flatus present [place] status: bottle (attempting to pump some as well) and doing well Narrative: Sury feels well.? Her pain is well controlled with current medications.? She has no new complaints.? Urinary output is adequate and she is voiding without difficulty.? Has a good appetite, is tolerating a general diet, is passing flatus, and has had a bowel movement without difficulty.? Has moderate amount of rubra lochia.? She is ambulating well.?She is bottle feeding and pumping some. States taht baby hasn't really latched but she is indifferent about breast vs bottle feeding. Still encouraged and nursing support PRN. OB - PN: Obj Exam Physical Exam: Vital signs: Temp Pulse Resp BP Pulse Ox O2 Del Method 97.9 F 90 20 107/76 97 Room Air 07/29/25 04:42 07/29/25 04:42 07/29/25 04:42 07/29/25 04:42 07/29/25 04:42 07/29/25 04:42 Narrative: GENERAL APPEARANCE:? normal?affect, alert, no distress? MOOD:? appropriate? CHEST:? clear?to auscultation and percussion? HEART:? regular?rate and rhythm? BREASTS: soft, nontender, no erythema, nipples intact? ABDOMEN:? soft, non-tender?the uterine?fundus is?U/2?and is?appropriate for?the stage of recovery.?Incision dressing is clean, dry, and intact.? EXTREMITIES:? normal?and no edema? OB - PN: A/P Delivery Assessment and Plan (1) care and examination of lactating mother: Status: Acute (2) Status post delivery: Status: Acute (3) BMI 50.0-59.9, adult: Status: Acute (4) Congenital hearing loss: Problem details: Inherited from her mother, became worse during 2024 . Hears better out of her left ear. Status: Acute Plan day: 2 Plan: routine care Comments: Anticipate discharge home tomorrow.
[2025-07-29] MEDS: DOCUSATE SODIUM 100 MG CAPSULE PO (08:26)
[2025-07-29 09:05] VITALS: BP 127/89; PULSE 93; RESP 18; TEMP 36.7; O2SAT 98
--- NOTE | 2025-07-29 11:15 | PC.SOCIAL ---
Social work note/cps report: photofinishing laboratory worker spoke to an sound installation worker at [facility] today #[phone] in regard to pt's cps report. The report is being screened out as of right now, but they would like cord blood test results faxed to them when they are available. This worker updated the charge nurse on duty in OB today, Rosaline, with this information. photofinishing laboratory worker will keep an eye on the baby's chart for the cord blood results. Social work to follow-up as needed.
[2025-07-29 13:20] VITALS: BP 132/89; PULSE 97; RESP 18; TEMP 37.2; O2SAT 97
[2025-07-29] MEDS: IBUPROFEN 600 MG TABLET PO (15:59)
[2025-07-29 16:55] VITALS: BP 136/97; PULSE 123; RESP 18; TEMP 36.8; O2SAT 97
[2025-07-29 20:18] VITALS: BP 115/79; PULSE 112; RESP 18; TEMP 36.9; O2SAT 96
[2025-07-30 00:21] VITALS: BP 137/89; PULSE 93; RESP 18; TEMP 36.7
[2025-07-30] MEDS: IBUPROFEN 600 MG TABLET PO (00:24)
[2025-07-30 05:01] VITALS: BP 128/66; PULSE 86; RESP 18; O2SAT 96
[2025-07-30 08:57] VITALS: BP 129/92; PULSE 111; RESP 18; O2SAT 96
[2025-07-30] MEDS: DOCUSATE SODIUM 100 MG CAPSULE PO (09:02)
[2025-07-30] MEDS: ACETAMINOPHEN 500 MG TABLET 1000 MG PO (09:02)
[2025-07-30] MEDS: MEASLES,MUMPS,RUBELLA VACC/PF 1 DOSE INJ 1 EACH SUBCUT (09:03)
[2025-07-30] MEDS: ENOXAPARIN 40 MG/0.4 ML INJ SUBCUT (09:03)
--- NOTE | 2025-07-30 11:11 | P.DS_ITS ---
DS: Providers Provider Date Seen: 07/30/25 Date of admission: 07/26/25 16:50 Primary care physician: Not a Local Provider Admitting Clinician: Kerline Winslow MD Consults: 07/26/25 21:13 Consult to Solar Energy Installation Manager [CONS] Routine Comment: Reason for Consult:: Substance Abuse Screening Attending Physician on discharge: Kerline Winslow MD Date of Discharge: 07/30/25 DS: Diagnosis Discharge Diagnosis (1) Status post delivery: Status: Acute (2) care and examination of lactating mother: Status: Acute (3) Congenital hearing loss: Status: Acute Problem details: Inherited from her mother, became worse during 2024 . Hears better out of her left ear. (4) BMI 50.0-59.9, adult: Status: Acute (5) Chronic hypertension: Status: Acute (6) Anxiety: Status: Acute (7) History of nicotine vaping: Status: Acute Problem details: stopped with (8) Marijuana use during : Status: Acute Problem details: stopped around 24 weeks Exam Narrative: Exam Narrative: Physical exam: General: No acute distress Psych: Alert and oriented x4, full affect HEENT: Normocephalic, atraumatic Heart: Regular rate and rhythm, no murmur rub or gallop Lungs: Clear to auscultation bilaterally Abdomen: Soft, no tenderness, rebound, or guarding, no masses Incision(s): Silver dressing and placed. Clean, dry, and intact. No surrounding erythema, induration, or abnormal discharge/breakdown Skin: No lesions or rashes Lower extremities: 1+ bilateral lower extremity edema Pelvic exam: No lochia noted on pad Const: Vital Signs, click to edit/add: Vital Signs - 24 hr 07/29/25 13:20 07/29/25 16:55 07/29/25 20:18 Temperature 99.0 F 98.2 F 98.5 F Pulse Rate [Pulse Oximeter] 97 123 H 112 H Respiratory Rate 18 18 18 Blood Pressure [Ri ght Arm] 132/89 136/97 H 115/79 Pulse Oximetry 97 97 96 Oxygen Delivery Me thod Room Air Room Air Room Air 07/30/25 00:21 07/30/25 05:01 07/30/25 08:57 Temperature 98.1 F Pulse Rate [Pulse Oximeter] 93 86 111 H Respiratory Rate 18 18 18 Blood Pressure [Ri ght Arm] 137/89 128/66 129/92 H Pulse Oximetry 96 96 Oxygen Delivery Me thod Room Air Room Air Room Air OB - DS: Summary Hospital Course Hospital Course: The patient is a 25 year old at 39.5 weeks gestation that was admitted to the Center on 07/26/25 for scheduled induction of labor. She had an uncomplicated delivery. She delivered a viable female infant. She is breast and bottle feeding. the patient has done well. Overnight patient had no complaints. Her pain is well controlled on oral pain medications. She is tolerating a regular diet. She has passed flatus. She is ambulating without difficulty. Lochia is scant. She is urinating without ayers. Patient denies chest pain, SOB, n/v, headache, RUQ pain, vision changes, dizziness. She's had intermittent mild ranging blood pressure throughout her stay. We discussed starting nifedipine XL 30 mg q.day. Will follow-up in 3-5 days to reassess blood pressure. Peripartum Data Procedures: Procedures Operation Date: 07/27/25 20:30 Actual Procedure Side Surgeon p Section Not Applicable Noelle Amaro MD Infant Gender: Female Time Spent with Patient Time attestation: Total time spent providing and/or coordinating discharge services: Discharge Plan Discharge Disposition: Home, Self-Care Date of Admission: 07/26/25 16:50 Attending Provider on Discharge: Susan Chapa Consulting Providers: Noelle Amaro Primary Care Provider: Provider,Not a Local Condition: Stable Anticipated Discharge Date/Time: 07/30/25 11:05 Discharge Medications: New acetaminophen 500 mg Tablet 1,000 mg PO Q6H PRN (Reason: Pain) 30 Days Qty: 60 0RF docusate sodium 100 mg Capsule 100 mg PO DAILY Qty: 30 0RF ibuprofen 600 mg Tablet 600 mg PO Q6H PRN (Reason: Pain) 30 Days Qty: 60 0RF Lanolin (HPA) 100 % Cream 1 applic topical Q1H PRNQty: 40 0RF oxycodone 5 mg Tablet 5 mg PO Q6H PRN (Reason: Pain) 14 Days Qty: 15 0RF nifedipine 30 mg tablet extended release 30 mg PO DAILY Qty: 30 0RF Continued calcium carbonate [Tums] 200 mg calcium (500 mg) tablet,chewable 200 mg PO BID Classic 28 mg iron- 800 mcg tablet 1 tab PO QDAY Discharge Orders: Discharge Order (Routine); Ordered 07/30/25 Ordered By: Susan Chapa Patient Education: Bupivacaine Liposome (By injection) Follow Up Appointments: Provider,Not a Local [Primary Care Provider, Family Practice] Forms: MyHealth Info Instructions Discharge Comments: - Follow up in 3-5 days for blood pressure check and silver dressing removal - Follow up for 2 weeks and 6 weeks check
== END 2025-07-30 11:32 | disposition home or self-care (01) | DRG 540 ==
PROVIDERS: Obstetrics & Gynecology; Admitting Provider Obstetrics & Gynecology; Visit Provider Obstetrics & Gynecology
PROC: 10D00Z1 Extraction of Products of Conception, Low, Open Approach (ICD-10-PCS; CPT 59514; principal; 2025-07-27 20:30)
DX: O10.92 Unspecified pre-existing hypertension complicating childbirth (principal); O32.4XX0 Maternal care for high head at term, not applicable or unspecified; O62.0 Primary inadequate contractions; O76 Abnormality in fetal heart rate and rhythm complicating labor and delivery; O77.0 Labor and delivery complicated by meconium in amniotic fluid; G89.18 Other acute postprocedural pain; I95.89 Other hypotension; O99.214 Obesity complicating childbirth; E66.01 Morbid (severe) obesity due to excess calories; H90.3 Sensorineural hearing loss, bilateral; O99.344 Other mental disorders complicating childbirth; F41.9 Anxiety disorder, unspecified; O99.324 Drug use complicating childbirth; F12.90 Cannabis use, unspecified, uncomplicated; Z3A.39 39 weeks gestation of pregnancy; Z37.0 Single live birth
CPT/HCPCS: 01967; 01968; 36415; 59200; 64488; 76942; 80306; 82565; 82570; 84156; 84450; 84460; 84520; 85018; 85025; 85027; 86592; 86850; 86900; 86901; A9270; C1726; J0456; J0665; J0666; J0690; J1100; J1650; J1885; J2270; J2371; J2405; J2590; J2795; J3010; J7050; J7120

== ENCOUNTER 2025-08-03 12:53 | Outpatient (CLI) | payer BC, SELFPAY | END 2025-08-03 12:54 | disposition home or self-care (01) | PROVIDERS: Visit Provider Physician Assistant | DX: O13.3 Gestational [pregnancy-induced] hypertension without significant proteinuria, third trimester (principal) | CPT/HCPCS: 82565; 82570; 84156; 84450; 84460; 84520 ==